=== PATIENT | female | born 1950 | race Caucasian/White ===

== ENCOUNTER → 2018-01-27 10:47 | Outpatient (CLI) | payer MEDICARE, OTHER, SELFPAY ==
--- NOTE | 2018-01-27 10:52 | MM_ITS ---
MM Dig screening mamm BI w/CAD CAD Screening ORDERING PHYSICIAN : Sima Hopkins PATIENT AGE: 67 years GENDER: Female INDICATION: 69-year-old. No hormones no new complaints Family history. Sister with breast cancer age 69 COMPARISON: Previous mammograms: [id number] and November studies TECHNIQUE: Standard CC and MLO images were obtained. R2 CAD reviewed. FINDINGS: Lower density breast with stable scattered benign-appearing calcifications. And vascular calcifications again evident RIGHT BREAST:Coarse grouping of calcifications upper-outer quadrant are most likely benign calcifications and can be followed. LEFT BREAST:. Stable appearance of the left breast. Follow-up in one year adequate. . Again the stable benign cluster of dense calcification upper quadrant left breast noted more likely benign pattern. Can be followed. IMPRESSION====== Stable bilateral mammogram. Clusters of dense benign-appearing calcification bilaterally appear stable. Can be followed safely in one year. BI-RADS Category: 2 Benign Finding(s) RECOMMENDED FOLLOW-UP: 1YR - 1 YEAR FOLLOW-UP (A letter has been sent to the patient regarding results of the study.)
== END ==
PROVIDERS: Family Provider Internal Medicine Adolescent Medicine; PCP Nurse Practitioner Family; Visit Provider Nurse Practitioner Family
DX: Z12.31 Encounter for screening mammogram for malignant neoplasm of breast (principal)
CPT/HCPCS: 77067

== ENCOUNTER 2018-03-18 17:29 | Observation (INO) ==
[2018-03-18 18:13] LABS: Basophils % 0.5 % (0.1-2.0); Eosinophils # 0.3 K/mm3 (0.0-0.4); Eosinophils % 3.7 % (0.1-12.0); Hematocrit 40.7 % (37.0-47.0); Hemoglobin 14.3 g/dL (12.2-16.2); Lymphocytes # 3.2 K/mm3 (0.7-4.5); Lymphocytes % 38.5 K/mm3 (10-50); Mean Corpuscular HGB Conc 35.1 g/dL (31.8-35.4); Mean Corpuscular Volume 91.1 fl (81-99); Mean Platelet Volume 7.4 fl (7.4-10.4); Monocytes # 0.6 K/mm3 (0.1-1.0); Monocytes % 6.7 % (1.7-9.3); Neutrophils # 4.2 K/mm3 (1.8-7.8); Neutrophils % 50.6 % (37.0-80.0); Platelet Count 324 K/mm3 (142-424); Red Blood Count 4.47 M/mm3 (4.20-5.40); Red Cell Distribution Width 13.1 % (11.5-17.5); White Blood Count 8.3 K/mm3 (4.8-10.8)
[2018-03-18 18:25] LABS: Alanine Aminotransferase 21 U/L (12-78); Albumin Level 3.8 gm/dL (3.4-5.0); Alkaline Phosphatase 67 U/L (46-116); Anion Gap 12.3 mEq/L (5-15); Aspartate Amino Transferase 15 U/L (15-37); Bilirubin,Total 0.3 mg/dL (0.2-1.0); Blood Urea Nitrogen 13 mg/dL (7-18); Calcium 9.6 mg/dL (8.5-10.1); Carbon Dioxide 29 mmol/L (21.0-32.0); Chloride 102 mmol/L (98-107); Globulin 3.7 gm/dl (1.3-3.2); Glucose 137 mg/dL (74-106); Potassium 3.3 mmoL/L (3.5-5.1); Sodium 140 mmol/L (136-145); Total Protein,Serum 7.5 gm/dL (6.4-8.2)
--- NOTE | 2018-03-18 19:05 | Emergency Department Note ---
ED Disposition Clinical Impression: Near syncope, Dehydration Hypotension Qualifiers: Hypotension type: unspecified hypotension type Qualified Code(s): I95.9 - Hypotension, unspecified Disposition: Still a Patient Condition on Discharge: Good Referrals: Sima Hopkins APRN [Primary Care Provider] - - Critical Care Critical Care Time: No Attestation: On 03/18/18, the high probability of a clinically significant, sudden or life threatening deterioration of the following system(s) required my full and direct attention, intervention and personal management. The time I documented below is in addition to time spent performing reported procedures but includes the following listed in this critical care notation. Medical Decision Making - Last Inquiry Pt receiving controlled substance: No Vital Signs: 03/18/18 17:53 Temperature 98.1 F Temperature Source Oral Pulse Rate [Right Brachial] 98 H Respiratory Rate 18 Blood Pressure [Right Arm] 74/55 Blood Pressure Mean [Right Arm] 61 Blood Pressure Source [Right Arm] Automatic Cuff Blood Pressure Position [Right Arm] Sitting 02 Sat by Pulse Oximetry 98 Oxygen Delivery Method Room Air - Lab Data Lab Results 03/18/18 17:20: WBC 8.3, RBC 4.47, Hgb 14.3, Hct 40.7, MCV 91.1, MCH 32.0 H, MCHC 35.1, RDW 13.1, Plt Count 324, MPV 7.4, Neut % (Auto) 50.6, Lymph % (Auto) 38.5, [place] % (Auto) 6.7, Eos % (Auto) 3.7, Baso % (Auto) 0.5, Neut # (Auto) 4.2 , Lymph # (Auto) 3.2, [place] # (Auto) 0.6, Eos # (Auto) 0.3, Baso # (Auto) 0.0 03/18/18 17:20: Sodium 140, Potassium 3.3 L, Chloride 102, Carbon Dioxide 29, Anion Gap 12.3, BUN 13, Creatinine 1.28 H, Estimated Creat Clear 56, Estimated GFR 42 L, Est GFR ( Amer) 50 L, Glucose 137 H, Calcium 9.6, Total Bilirubin 0.3, AST 15, ALT 21, Alkaline Phosphatase 67, Troponin I < 0.02, Total Protein 7.5, Albumin 3.8, Globulin 3.7 H, Albumin/Globulin Ratio 1.0 L Result diagrams: 03/18/18 17:20 03/18/18 17:20 Orders (Tests/Meds): ED MEDICATIONS Discontinued Medications Generic Name Dose Route Start Last Admin Trade Name Ashleigh PRN Reason Stop Dose Admin Sodium Chloride 1,000 mls @ 999 mls/hr 03/18/18 18:00 03/18/18 18:21 Sod Chlor 0.9% 1000ml Bag IV 03/18/18 19:00 999 mls/hr .Q1H1M RAEGAN Administration Lactated Ringer's 1,000 mls @ 999 mls/hr 03/18/18 18:00 03/18/18 18:21 Lactated Ringer's 1000 Ml Bag IV 03/18/18 19:00 999 mls/hr .Q1H1M RAEGAN Administration ORDERS Category Date Time Status XR chest portable Stat Exams 03/18/18 17:57 Taken Diarrhea Panel, PCR Stat Lab 03/18/18 19:14 Ordered Urinalysis (cathed specimen) Stat Lab 03/18/18 17:57 Ordered - ECG Data Tracing #1 EKG interpreted by Devin Gonzales MD: Rhythm: sinus Rate: 91 [place]: normal Ectopy: none Conduction: normal ST Segment Changes: none T Wave Changes: none Q Waves: Leads III and aVF LVH Poor R-wave progression - Physician Consults Physician Consulted: Jayy Time: 19:26 Reason -: Admission Comment/Response: Agrees to admit the patient to the hospital. We discussed the patient's clinical information, including history, exam, laboratory and radiology results and ED course. Per hospital procedure, I will write temporary bridge inpatient orders on the patient. Specific orders requested by the admitting physician: IV fluids, recheck chemistry profile in the morning Medical Decision Narrative: 7:20 PM: Hypotensive on arrival. Blood pressure now 132 systolic. Creatinine is above her baseline from 1 year ago. General Adult HPI - General Chief complaint: Syncope Stated complaint: dizzy,sugar Time Seen by Provider: 03/18/18 19:00 Mode of Arrival: Wheelchair Limitations: No Limitations Description of Symptoms (Recalled from ER Triage Doc. by RN): WEAKNESS, NEAR SYNCOPE, DIAPHORETIC, NOT EATING TODAY AND IS DIABETIC, DIARRHEA TODAY, NAUSEA - History of Present Illness HPI narrative: The patient has not felt well all day. She has had some diarrhea which she describes as mild. No blood. No vomiting. No abdominal pain. She has not eaten or drank much all day. She is diabetic. She was in her wheelchair this afternoon when she got very weak and near syncopal. She says that she almost passed out, but not quite. She says she was profoundly diaphoretic. She denies chest pain or shortness of breath. Other than the fact that she did not have any chest pain, she says she felt like she did when she had a heart attack. She says that she is improved now, but still does not feel good. Denies fever. - Related Data Home Medications Medication Instructions Recorded Confirmed Unobtainable 03/18/18 03/18/18 Allergies Allergy/AdvReac Type Severity Reaction Status Date / Time pregabalin [From Lyrica] AdvReac Mild LIPS Verified 03/18/18 18:00 SWELLED [facility] History I have reviewed the patient's past medical history: Yes - Social History Educational Level: Completed High School Smoking Status: Never smoker Tobacco Type: cigarettes Alcohol Intake: never - Psychiatric History Expresses thoughts of harming self/others: None Suicide Plan Description: No Plan ROS Obtained: Yes All systems reviewed & no additional complaints - Constitutional Constitutional: Reports excessive sweating, Denies fever(s), Reports poor appetite, Reports malaise, Reports weakness - Cardiovascular Cardiovascular: Reports as per HPI, Reports fainting (Near-syncope) - Respiratory Respiratory: No cough, No dyspnea - Gastrointestinal Gastrointestingal: Reports: diarrhea. Denies: abdominal pain, nausea, vomiting Physical Exam - General General appearance: alert, in no apparent distress - Head Head exam: atraumatic, normocephalic, normal inspection - Eye Eye exam: Present: normal appearance, PERRL, EOMI - ENT ENT exam: Present: normal exam, normal oropharynx, mucous membranes moist, TM's normal bilaterally, normal external ear exam - Neck Neck exam: Present: normal inspection, full ROM, trachea midline. Absent: meningismus, lymphadenopathy - Chest Chest inspection: Present: normal inspection, symmetric chest wall rise. Absent : tenderness - Respiratory Respiratory exam: Present: normal lung sounds bilaterally. Absent: respiratory distress - Cardiovascular Cardiovascular exam: Present: regular rate, normal rhythm. Absent: JVD - Abdominal Exam Abdominal exam: Present: soft, normal bowel sounds. Absent: distention, tenderness, guarding - Extremities Exam Extremities exam: Present: normal inspection, full ROM, normal capillary refill. Absent: calf tenderness - Neurological Exam Neurological exam: Present: alert, oriented X3 - Psychiatric Psychiatric exam: Present: normal affect, normal mood - Skin Skin exam: Present: warm, dry, intact, normal color
[2018-03-19 04:48] LABS: Anion Gap 10.3 mEq/L (5-15); Potassium 3.3 mmoL/L (3.5-5.1)
[2018-03-19 05:10] LABS: Basophils % 0.6 % (0.1-2.0); Eosinophils # 0.3 K/mm3 (0.0-0.4); Eosinophils % 3.9 % (0.1-12.0); Hematocrit 35.5 % (37.0-47.0); Lymphocytes # 2.7 K/mm3 (0.7-4.5); Lymphocytes % 42.7 K/mm3 (10-50); Mean Corpuscular HGB Conc 35.5 g/dL (31.8-35.4); Mean Corpuscular Hemoglobin 31.9 pg (27.0-31.2); Mean Corpuscular Volume 89.8 fl (81-99); Mean Platelet Volume 7.3 fl (7.4-10.4); Monocytes # 0.4 K/mm3 (0.1-1.0); Monocytes % 6.4 % (1.7-9.3); Neutrophils # 2.9 K/mm3 (1.8-7.8); Neutrophils % 46.4 % (37.0-80.0); Platelet Count 254 K/mm3 (142-424); Red Blood Count 3.96 M/mm3 (4.20-5.40); Red Cell Distribution Width 13.1 % (11.5-17.5); White Blood Count 6.3 K/mm3 (4.8-10.8)
[2018-03-19 06:23] LABS: Hemoglobin 12.7 g/dL (12.2-16.2)
--- NOTE | 2018-03-19 07:25 | Pharmacy Consult Notes ---
[facility] Pharmacy VTE Monitoring - Patient Demographics Admission date: 03/18/18 Report Date: 03/19/18 Time: 07:25 Allergies/Adverse Reactions: Patient Allergies pregabalin [From Lyrica] Adverse Reaction (Mild, Verified 03/18/18 18:00) LIPS SWELLED Height: 1.57 m Weight: 90.889 kg Patient Problems: Current Active Problems Near syncope (Acute) Hypotension (Acute) Dehydration (Acute) - VTE Risk Labs: VTE Related Lab Results Hgb 12.7 g/dL (12.2-16.2) D 03/19/18 04:20 Hct 35.5 % (37.0-47.0) L 03/19/18 04:20 Plt Count 254 K/mm3 (142-424) 03/19/18 04:20 BUN 9 mg/dL (7-18) D 03/19/18 04:20 Creatinine 0.84 mg/dL (0.55-1.02) D 03/19/18 04:20 Estimated Creat Clear 78 mL/min (0-300) 03/19/18 04:20 Was VTE Risk Assessment Performed: Yes VTE Score: 3 VTE Risk Level: Low Risk - Prophylaxis VTE Prophylaxis Ordered?: Yes Types of VTE Prophylaxis: TEDS Knee High Location of Applied Device: Bilateral Lower Extremeties - VTE Diagnosis Confirmed Treatment or plan recommended: Continue Current Treatment
--- NOTE | 2018-03-19 09:00 | H&P/Discharge Summary ---
General - General Admission date:: 03/18/18 Discharge date: 03/19/18 *Admission Date: 03/18/18 *Chief complaint: weakness *History of present illness: The patient has not felt well all day. She has had some diarrhea which she describes as mild. No blood. No vomiting. No abdominal pain. She has not eaten or drank much all day. She is diabetic. She was in her wheelchair this afternoon when she got very weak and near syncopal. She says that she almost passed out, but not quite. She says she was profoundly diaphoretic. She denies chest pain or shortness of breath. Other than the fact that she did not have any chest pain, she says she felt like she did when she had a heart attack. She says that she is improved now, but still does not feel good. Denies fever. Above per Dr. Will. [facility] History I have reviewed the patient's past medical history: Yes Medical History: Reports:: Diabetes Mellitus Type 2 Denies:: Diabetes Mellitus Type 1 Other Medical History: Reports: Arthritis Amputation: No - *Social History Educational Level: Completed High School Smoking Status: Never smoker Tobacco Type: cigarettes Alcohol Intake: never Occupational Status: disabled Housing: house Household Members: spouse - Psychiatric History Expresses thoughts of harming self/others: None Suicide Plan Description: No Plan Review of Systems - Review of Systems Review of systems:: pertinent systems reviewed and negative unless documented below - *Neurologic Reports fainting (Near-syncope), Reports weakness Exam Vital signs and Labs for Last 24 Hours: Temp Pulse Resp BP Pulse Ox 97.1 F L 85 16 157/83 98 03/19/18 05:08 03/19/18 05:08 03/19/18 05:08 03/19/18 05:08 03/19/18 05:08 Laboratory Results - last 24 hr 03/18/18 17:20: WBC 8.3, RBC 4.47, Hgb 14.3, Hct 40.7, MCV 91.1, MCH 32.0 H, MCHC 35.1, RDW 13.1, Plt Count 324, MPV 7.4, Neut % (Auto) 50.6, Lymph % (Auto) 38.5, [place] % (Auto) 6.7, Eos % (Auto) 3.7, Baso % (Auto) 0.5, Neut # (Auto) 4.2 , Lymph # (Auto) 3.2, [place] # (Auto) 0.6, Eos # (Auto) 0.3, Baso # (Auto) 0.0 03/18/18 17:20: Sodium 140, Potassium 3.3 L, Chloride 102, Carbon Dioxide 29, Anion Gap 12.3, BUN 13, Creatinine 1.28 H, Estimated Creat Clear 56, Estimated GFR 42 L, Est GFR ( Amer) 50 L, Glucose 137 H, Calcium 9.6, Total Bilirubin 0.3, AST 15, ALT 21, Alkaline Phosphatase 67, Troponin I < 0.02, Total Protein 7.5, Albumin 3.8, Globulin 3.7 H, Albumin/Globulin Ratio 1.0 L 03/18/18 21:10: Urine Color Yellow, Urine Appearance Clear, Urine pH 5.5, Ur Specific [place] <= 1.005, Urine Protein Negative, Urine Glucose (UA) Negative, Urine Ketones Negative, Urine Blood Negative, Urine Nitrate Negative, Urine Bilirubin Negative, Urine Urobilinogen 0.2, Ur Leukocyte Esterase 1+ A, Urine WBC 10-20 A, Urine Bacteria 1+ 03/18/18 22:27: Troponin I < 0.02 03/18/18 23:24: POC Glucose 249 H 03/19/18 01:30: Troponin I < 0.02 03/19/18 04:20: Troponin I < 0.02 03/19/18 04:20: WBC 6.3, RBC 3.96 L, Hgb 12.7 D, Hct 35.5 L, MCV 89.8, MCH 31.9 H, MCHC 35.5 H, RDW 13.1, Plt Count 254, MPV 7.3 L, Neut % (Auto) 46.4, Lymph % (Auto) 42.7, [place] % (Auto) 6.4, Eos % (Auto) 3.9, Baso % (Auto) 0.6, Neut # (Auto) 2.9, Lymph # (Auto) 2.7, [place] # (Auto) 0.4, Eos # (Auto) 0.3, Baso # (Auto) 0.0 03/19/18 04:20: Sodium 142, Potassium 3.3 L, Chloride 106, Carbon Dioxide 29, Anion Gap 10.3, BUN 9 D, Creatinine 0.84 D, Estimated Creat Clear 78, Estimated GFR 68, Est GFR ( Amer) 82 D, Glucose 167 H D 03/19/18 06:17: POC Glucose 153 H I & O for Last 24 hours: Intake & Output 03/16/18 03/17/18 03/18/18 03/19/18 11:59 11:59 11:59 11:59 Intake Total 717 / 717 Output Total 500 / 500 Balance 217 / 217 Weight 200 lb 6 oz Microbiology Reports for the Last 24 Hours: Microbiology 03/18/18 21:10 Urine,Catheterized Urine Culture - Preliminary Narrative: ALert and oriented x3. Rate and rhythm regular. No murmur. No LE edema. Mucous membranes moist. Skin pink, warm and dry. Abdomen soft and nontender. Neuro exam unremarkable Hospital Course Hospital Course: Patient was admitted to acute care for IV hydration. She has not had any further episodes of diarrhea. She is tolerating oral intake well without diarrhea, nausea or abdominal pain. She feels significantly better and is ready to go home. Discharge home. FU with Jefe Hopkins APRN in one week. Results Labs on day of discharge: Labs from last 24 hours 03/19/18 03/19/18 03/19/18 06:17 04:20 04:20 WBC 6.3 RBC 3.96 L Hgb 12.7 D Hct 35.5 L MCV 89.8 MCH 31.9 H MCHC 35.5 H RDW 13.1 Plt Count 254 MPV 7.3 L Neut % (Auto) 46.4 Lymph % (Auto) 42.7 [place] % (Auto) 6.4 Eos % (Auto) 3.9 Baso % (Auto) 0.6 Neut # (Auto) 2.9 Lymph # (Auto) 2.7 [place] # (Auto) 0.4 Eos # (Auto) 0.3 Baso # (Auto) 0.0 Sodium 142 Potassium 3.3 L Chloride 106 Carbon Dioxide 29 Anion Gap 10.3 BUN 9 D Creatinine 0.84 D Estimated Creat Clear 78 Estimated GFR 68 Est GFR ( Amer) 82 D Glucose 167 H D POC Glucose 153 H Calcium Total Bilirubin AST ALT Alkaline Phosphatase Troponin I Total Protein Albumin Globulin Albumin/Globulin Ratio Urine Color Urine Appearance Urine pH Ur Specific [place] Urine Protein Urine Glucose (UA) Urine Ketones Urine Blood Urine Nitrate Urine Bilirubin Urine Urobilinogen Ur Leukocyte Esterase Urine WBC Urine Bacteria 03/19/18 03/19/18 03/18/18 04:20 01:30 23:24 WBC RBC Hgb Hct MCV MCH MCHC RDW Plt Count MPV Neut % (Auto) Lymph % (Auto) [place] % (Auto) Eos % (Auto) Baso % (Auto) Neut # (Auto) Lymph # (Auto) [place] # (Auto) Eos # (Auto) Baso # (Auto) Sodium Potassium Chloride Carbon Dioxide Anion Gap BUN Creatinine Estimated Creat Clear Estimated GFR Est GFR ( Amer) Glucose POC Glucose 249 H Calcium Total Bilirubin AST ALT Alkaline Phosphatase Troponin I < 0.02 < 0.02 Total Protein Albumin Globulin Albumin/Globulin Ratio Urine Color Urine Appearance Urine pH Ur Specific [place] Urine Protein Urine Glucose (UA) Urine Ketones Urine Blood Urine Nitrate Urine Bilirubin Urine Urobilinogen Ur Leukocyte Esterase Urine WBC Urine Bacteria 03/18/18 03/18/18 03/18/18 22:27 21:10 17:20 WBC RBC Hgb Hct MCV MCH MCHC RDW Plt Count MPV Neut % (Auto) Lymph % (Auto) [place] % (Auto) Eos % (Auto) Baso % (Auto) Neut # (Auto) Lymph # (Auto) [place] # (Auto) Eos # (Auto) Baso # (Auto) Sodium 140 Potassium 3.3 L Chloride 102 Carbon Dioxide 29 Anion Gap 12.3 BUN 13 Creatinine 1.28 H Estimated Creat Clear 56 Estimated GFR 42 L Est GFR ( Amer) 50 L Glucose 137 H POC Glucose Calcium 9.6 Total Bilirubin 0.3 AST 15 ALT 21 Alkaline Phosphatase 67 Troponin I < 0.02 < 0.02 Total Protein 7.5 Albumin 3.8 Globulin 3.7 H Albumin/Globulin Ratio 1.0 L Urine Color Yellow Urine Appearance Clear Urine pH 5.5 Ur Specific [place] <= 1.005 Urine Protein Negative Urine Glucose (UA) Negative Urine Ketones Negative Urine Blood Negative Urine Nitrate Negative Urine Bilirubin Negative Urine Urobilinogen 0.2 Ur Leukocyte Esterase 1+ A Urine WBC 10-20 A Urine Bacteria 1+ 03/18/18 17:20 WBC 8.3 RBC 4.47 Hgb 14.3 Hct 40.7 MCV 91.1 MCH 32.0 H MCHC 35.1 RDW 13.1 Plt Count 324 MPV 7.4 Neut % (Auto) 50.6 Lymph % (Auto) 38.5 [place] % (Auto) 6.7 Eos % (Auto) 3.7 Baso % (Auto) 0.5 Neut # (Auto) 4.2 Lymph # (Auto) 3.2 Andrews # (Auto) 0.6 Eos # (Auto) 0.3 Baso # (Auto) 0.0 Sodium Potassium Chloride Carbon Dioxide Anion Gap BUN Creatinine Estimated Creat Clear Estimated GFR Est GFR ( Amer) Glucose POC Glucose Calcium Total Bilirubin AST ALT Alkaline Phosphatase Troponin I Total Protein Albumin Globulin Albumin/Globulin Ratio Urine Color Urine Appearance Urine pH Ur Specific [place] Urine Protein Urine Glucose (UA) Urine Ketones Urine Blood Urine Nitrate Urine Bilirubin Urine Urobilinogen Ur Leukocyte Esterase Urine WBC Urine Bacteria Preliminary micro results at discharge 03/18/18 21:10 Urine Culture - Preliminary Urine,Catheterized Discharge Medications Discharge Medications: Home Medications Medication Instructions Recorded Confirmed Type Aspirin [Aspirin 81mg EC Tab] 81 mg PO DAILY 03/19/18 03/19/18 History Cyanocobalamin (Vitamin B-12) 1,000 mcg IM MONTHLY 03/19/18 03/19/18 History [Cyanocobalamin 1,000mcg/mL Vial] Ergocalciferol (Vitamin D2) 50,000 unit PO DIRECTED 03/19/18 03/19/18 History [Vitamin D2] Gabapentin [Gabapentin 300mg Cap] 300 mg PO BID 03/19/18 03/19/18 History Insulin Aspart [Novolog Flexpen] 20 unit SQ TID 03/19/18 03/19/18 History Insulin Detemir [Levemir 48 unit SQ HS 03/19/18 03/19/18 History 100units/mL 3mL flexpen] Loratadine [Claritin 10mg Tablet] 10 mg PO DAILY 03/19/18 03/19/18 History Memantine HCl [Namenda Xr] 28 mg PO DAILY 03/19/18 03/19/18 History Metformin HCl 1,000 mg PO BID 03/19/18 03/19/18 History Nitroglycerin [Nitroglycerin 1 - 2 sprays PO Q5MINP PRN 03/19/18 03/19/18 History 0.4mg/Dose [place] 4.9gm] Omeprazole [Omeprazole 20mg 20 mg PO BID 03/19/18 03/19/18 History Capsule] Polyethylene Glycol 3350 [Miralax 17 gm PO DAILYP PRN 03/19/18 03/19/18 History Powder] Rosuvastatin Calcium [Crestor] 10 mg PO HS 03/19/18 03/19/18 History Venlafaxine HCl [Effexor 37.5mg 37.5 mg PO BID 03/19/18 03/19/18 History tablet] Disposition Disposition: Home, Self-Care
[2018-03-19 09:04] VITALS: BP 141/63
== END 2018-03-19 10:15 | disposition home or self-care (01) ==
LOC: ER 17:29 → 2ND 17:29
PROVIDERS: ADMIT Internal Medicine Adolescent Medicine; ATTEND Internal Medicine Adolescent Medicine

== ENCOUNTER → 2018-03-26 10:55 | Outpatient (CLI) | payer MEDICARE, OTHER, SELFPAY ==
--- NOTE | 2018-03-26 11:10 | XR_ITS ---
XR shoulder LT min 2V HISTORY: ITS.REASON: LEFT SHOULDER PAIN DUE TO TRAUMA ORDERING PHYSICIAN: Sima Hopkins PATIENT AGE: 67 years Comparison: None FINDINGS: There is deformity of the left humeral neck. This has more of the appearance of an old fracture. An old chest x-ray of 05/15/2008 showed an old left humeral neck fracture. Cannot exclude a possibility of some minimal acute impaction. There is no evidence of dislocation. Osteoarthritic changes are present at the acromioclavicular joint with subacromial stenosis. IMPRESSION: 1. Old left humeral neck fracture. Cannot exclude the possibility of some minimal impaction. CT may be of further value if clinically warranted. 2. 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
[2018-03-26 12:07] LABS: Anion Gap 17.4 mEq/L (5-15); Blood Urea Nitrogen 17 mg/dL (7-18); Carbon Dioxide 25 mmol/L (21.0-32.0); Chloride 102 mmol/L (98-107); Creatinine,Serum 0.95 mg/dL (0.55-1.02); Estimated Glomerular Filt Rate 59 ml/min (>60); GFR (African American) 71 ML/MIN (>60); Glucose 296 mg/dL (74-106); Magnesium 1.2 mg/dL (1.4-2.2); Potassium 4.4 mmoL/L (3.5-5.1); Sodium 140 mmol/L (136-145)
[2018-03-26 13:20] LABS: Thyroid Stimulating Hormone 1.45 uIU/ml (0.358-3.740)
[2018-03-26 13:29] LABS: Hemoglobin A1C 9.4 % (0.0-7.0)
== END ==
PROVIDERS: Visit Provider Nurse Practitioner Family
DX: E11.319 Type 2 diabetes mellitus with unspecified diabetic retinopathy without macular edema (principal); E87.6 Hypokalemia; M25.512 Pain in left shoulder
CPT/HCPCS: 36415; 73030; 80048; 83036; 83735; 84443

== ENCOUNTER → 2018-04-01 10:14 | Outpatient (CLI) | payer MEDICARE, OTHER, SELFPAY ==
--- NOTE | 2018-04-01 10:16 | CT_ITS ---
CT shoulder LT wo con HISTORY: Posttraumatic pain ITS.REASON: ACUTE PAIN OF LT SHOULDER ORDERING PHYSICIAN: Luis Hope MD PATIENT AGE: 67 years Comparison: 03/26/2018 FINDINGS: There is an old fracture of the left humeral neck. There is some deformity of the humeral head and neck from the old injury. No acute fracture or dislocation is evident. There is some mild bony hypertrophic changes at the humeral head and neck. Osteoarthritic changes are present at the glenohumeral joint and acromioclavicular joint. There is subacromial stenosis. Suspect a tear of the supraspinatus tendon. IMPRESSION: 1. Old left humeral neck fracture with posttraumatic deformity and hypertrophy. No acute fracture evident. 2. Acromioclavicular and glenohumeral arthropathy with subacromial stenosis and suspected tear of the supraspinatus tendon
== END ==
PROVIDERS: Family Provider Internal Medicine Adolescent Medicine; PCP Nurse Practitioner Family; Visit Provider Internal Medicine Adolescent Medicine
DX: M25.512 Pain in left shoulder (principal)
CPT/HCPCS: 73200

== ENCOUNTER → 2018-12-01 09:28 | Outpatient (CLI) | payer MEDICARE, OTHER, SELFPAY ==
[2018-12-01 18:38] LABS: Alanine Aminotransferase 20 U/L (12-78); Albumin Level 3.3 gm/dL (3.4-5.0); Alkaline Phosphatase 61 U/L (46-116); Anion Gap 13.1 mEq/L (5-15); Aspartate Amino Transferase 14 U/L (15-37); Bilirubin,Total 0.2 mg/dL (0.2-1.0); Blood Urea Nitrogen 13 mg/dL (7-18); Calcium 9.2 mg/dL (8.5-10.1); Carbon Dioxide 30 mmol/L (21.0-32.0); Chloride 104 mmol/L (98-107); Cholesterol 219 mg/dL (140-200); Creatinine,Serum 0.97 mg/dL (0.55-1.02); Estimated Glomerular Filt Rate 57 ml/min (>60); GFR (African American) 69 ML/MIN (>60); Globulin 3.2 gm/dl (1.3-3.2); Glucose 98 mg/dL (74-106); HDL Cholesterol 55 mg/dL (29-89); LDL Cholesterol 131 mg/dL (0-130); Potassium 4.1 mmoL/L (3.5-5.1); Sodium 143 mmol/L (136-145); Total Protein,Serum 6.5 gm/dL (6.4-8.2); Triglycerides 166 mg/dL (30-200); VLDL Cholesterol 33 mg/dL (0-40)
== END ==
PROVIDERS: Visit Provider Internal Medicine Endocrinology, Diabetes & Metabolism
DX: E11.65 Type 2 diabetes mellitus with hyperglycemia (principal); E11.39 Type 2 diabetes mellitus with other diabetic ophthalmic complication; E34.9 Endocrine disorder, unspecified; I10 Essential (primary) hypertension; Z79.4 Long term (current) use of insulin
CPT/HCPCS: 36415; 80053; 80061; 84443

== ENCOUNTER → 2019-04-06 08:21 | Outpatient (POV) | payer MEDICARE, OTHER, SELFPAY | PROVIDERS: Visit Provider Dermatology | DX: Z00.00 Encounter for general adult medical examination without abnormal findings (principal) ==

== ENCOUNTER → 2019-07-06 09:01 | Outpatient (CLI) | payer MEDICARE, SELFPAY ==
[2019-07-06 10:36] LABS: Alanine Aminotransferase 30 U/L (12-78); Albumin Level 3.5 gm/dL (3.4-5.0); Alkaline Phosphatase 66 U/L (46-116); Anion Gap 14.3 mEq/L (5-15); Aspartate Amino Transferase 18 U/L (15-37); Bilirubin,Total 0.3 mg/dL (0.2-1.0); Blood Urea Nitrogen 12 mg/dL (7-18); Calcium 9.6 mg/dL (8.5-10.1); Carbon Dioxide 28 mmol/L (21.0-32.0); Chloride 103 mmol/L (98-107); Chol/HDL Ratio 3.9 (1-3.5); Cholesterol 208 mg/dL (140-200); Creatinine,Serum 1.04 mg/dL (0.55-1.02); Estimated Glomerular Filt Rate 53 ml/min (>60); GFR (African American) 64 ML/MIN (>60); Globulin 3.5 gm/dl (1.3-3.2); Glucose 125 mg/dL (74-106); HDL Cholesterol 54 mg/dL (29-89); LDL Cholesterol 116 mg/dL (0-130); Potassium 4.3 mmoL/L (3.5-5.1); Sodium 141 mmol/L (136-145); Triglycerides 191 mg/dL (30-200); VLDL Cholesterol 38 mg/dL (0-40)
[2019-07-11 04:17] LABS: Vitamin B12 453 pg/mL (232-1245)
== END ==
PROVIDERS: Internal Medicine Adolescent Medicine; Visit Provider Internal Medicine Endocrinology, Diabetes & Metabolism
DX: E11.65 Type 2 diabetes mellitus with hyperglycemia (principal); E78.5 Hyperlipidemia, unspecified; R53.81 Other malaise; Z79.84 Long term (current) use of oral hypoglycemic drugs
CPT/HCPCS: 36415; 80053; 80061; 82607

== ENCOUNTER → 2019-08-12 10:21 | Outpatient (CLI) | payer MEDICARE, SELFPAY ==
--- NOTE | 2019-08-12 10:24 | MM_ITS ---
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 R2 CAD reviewed. FINDINGS: Right breast: No new findings of significant concern. Vascular calcifications. 2 stable cluster of dense benign appearing calcifications lateral breast unchanged reflecting vascular calcifications or possibly small degenerating fibroadenoma the can be followed safely. Mild asymmetric areas of density the right breast appear stable since 2008 Left breast: No new areas of concern. Small clusters of dense benign-appearing calcifications unchanged with no significant change since 2016 IMPRESSION: Stable bilateral mammogram: No significant new findings Bilateral follow-up 1 year BI-RAD Category: 2 Benign Finding(s) FOLLOW-UP: 1YR 1 Year Follow-up (A letter has been sent to the patient regarding results of the study.) Dictated by: Tho Gama MD 08/12/2019 11:42 Electronically signed by Tho Gama MD in [place] 08/12/2019 11:42
--- NOTE | 2019-08-12 10:24 | XR_ITS ---
PROCEDURE: XR DEXA AXIAL SKELETON CLINICAL HISTORY: OSTEOPOROSIS. COMPARISON: No exams were available for comparison FINDINGS: Left femoral neck density is 0.754 grams/centimeters sq with a T-score of -2. L-spine density was not accurate due to prior surgery IMPRESSION: Osteopenia with moderate fracture risk. Treatment advised. Suggest follow-up exam July 2021. Dictated by: Kennedy Duron MD 08/12/2019 11:52 Electronically signed by Kennedy Duron MD in [place] 08/12/2019 11:52
== END ==
PROVIDERS: Referring Provider Nurse Practitioner Family; Visit Provider Nurse Practitioner Family
DX: Z12.31 Encounter for screening mammogram for malignant neoplasm of breast (principal); M81.0 Age-related osteoporosis without current pathological fracture
CPT/HCPCS: 77067; 77080

== ENCOUNTER 2019-10-11 12:30 | Outpatient (CLI) | payer MEDICARE, SELFPAY ==
[2019-10-11 13:24] VITALS: BMI 35.9
[2019-10-11 13:31] LABS: Albumin Level 3.3 gm/dL (3.4-5.0); Calcium 8.8 mg/dL (8.5-10.1); Creatinine Clearance Estimated 65 mL/min (50-200); Creatinine,Serum 1.11 mg/dL (0.55-1.02); Estimated Glomerular Filt Rate 49 ml/min (>60); GFR (African American) 59 ML/MIN (>60)
[2019-10-11 14:09] VITALS: BP 148/76; PULSE 97; RESP 18
[2019-10-11 14:32] VITALS: BP 141/76; PULSE 95; RESP 18
== END 2019-10-11 14:32 | disposition home or self-care (01) ==
LOC: INF 13:53
PROVIDERS: Visit Provider Internal Medicine Adolescent Medicine
DX: M85.89 Other specified disorders of bone density and structure, multiple sites (principal)
CPT/HCPCS: 82040; 82310; 82565; 96374; J3489

== ENCOUNTER → 2019-12-06 13:00 | Outpatient (CLI) | payer MEDICARE, SELFPAY | PROVIDERS: PCP Internal Medicine Adolescent Medicine; Visit Provider Nurse Practitioner Family | DX: G47.33 Obstructive sleep apnea (adult) (pediatric) (principal); R40.0 Somnolence; E66.9 Obesity, unspecified; R41.840 Attention and concentration deficit | CPT/HCPCS: G0399 ==

== ENCOUNTER → 2020-05-29 09:13 | Outpatient (CLI) | payer MEDICARE, SELFPAY ==
[2020-05-29 09:47] LABS: Basophils # 0.1 K/mm3 (0-0.2); Basophils % 0.8 % (0.1-2.0); Eosinophils # 0.4 K/mm3 (0.0-0.4); Eosinophils % 5.2 % (0.1-12.0); Hematocrit 41.9 % (37.0-47.0); Hemoglobin 14.2 g/dL (12.2-16.2); Lymphocytes # 2.5 K/mm3 (0.7-4.5); Lymphocytes % 31.4 % (10-50); Mean Corpuscular HGB Conc 33.8 g/dL (31.8-35.4); Mean Corpuscular Hemoglobin 32.5 pg (27.0-31.2); Mean Platelet Volume 7.3 fl (7.4-10.4); Monocytes # 0.4 K/mm3 (0.1-1.0); Monocytes % 5.5 % (1.7-9.3); Neutrophils # 4.4 K/mm3 (1.8-7.8); Platelet Count 269 K/mm3 (142-424); Red Blood Count 4.36 M/mm3 (4.20-5.40); Red Cell Distribution Width 13.4 % (11.5-17.5); White Blood Count 7.8 K/mm3 (4.8-10.8)
[2020-05-29 10:29] LABS: Chloride 101 mmol/L (98-107); Potassium 3.5 mmoL/L (3.5-5.1); Sodium 141 mmol/L (136-145)
[2020-05-29 10:31] LABS: Alanine Aminotransferase 16 U/L (12-78); Aspartate Amino Transferase 23 U/L (14-36); Blood Urea Nitrogen 12 mg/dl (7-17); Estimated Glomerular Filt Rate 55 ml/min (>60); GFR (African American) 66 ML/MIN (>60)
[2020-05-29 10:32] LABS: Albumin Level 4.1 g/dl (3.5-5.0); Albumin/Globulin Ratio 1.5 (1.1-1.8); Alkaline Phosphatase 53 U/L (38-126); Anion Gap 16.5 mEq/L (5-15); Bilirubin,Total 0.4 mg/dl (0.2-1.3); Calcium 9.8 mg/dl (8.4-10.2); Carbon Dioxide 27 mmol/L (22.0-30.0); Cholesterol 116 mg/dl (140-200); Globulin 2.7 g/dL (1.3-3.2); Glucose 107 mg/dl (74-100); Total Protein,Serum 6.8 g/dl (6.3-8.2); Triglycerides 167 mg/dl (30-150); VLDL Cholesterol 33 mg/dL (0-40)
[2020-05-29 10:33] LABS: Chol/HDL Ratio 1.8 (1-3.5); HDL Cholesterol 66 mg/dl (40-60)
[2020-05-29 12:37] LABS: 25-OH Vitamin D, Total 34.6 ng/mL (30-100)
[2020-05-29 13:06] LABS: Hemoglobin A1C 9.5 % (4.0-6.0)
[2020-05-30 09:18] LABS: Vitamin B12 318 pg/mL (232-1245)
[2020-05-30 14:10] LABS: Creatinine,Urine Random 61 mg/dL (Not Estab.); Microalbumin/Creatinine Ratio 46.5
== END ==
PROVIDERS: Visit Provider Nurse Practitioner Family
DX: E11.39 Type 2 diabetes mellitus with other diabetic ophthalmic complication (principal); I10 Essential (primary) hypertension; E53.8 Deficiency of other specified B group vitamins; E55.9 Vitamin D deficiency, unspecified; M85.80 Other specified disorders of bone density and structure, unspecified site; Z79.4 Long term (current) use of insulin
CPT/HCPCS: 36415; 80053; 80061; 82043; 82306; 82570; 82607; 83036; 85025

== ENCOUNTER → 2021-04-05 15:16 | Outpatient (CLI) | payer MEDICARE, SELFPAY ==
[2021-04-05 16:11] LABS: Basophils % 0.5 % (0.1-2.0); Eosinophils # 0.2 K/mm3 (0.0-0.4); Eosinophils % 2.2 % (0.1-12.0); Hematocrit 39.1 % (37.0-47.0); Hemoglobin 12.7 g/dL (12.2-16.2); Lymphocytes # 2.2 K/mm3 (0.7-4.5); Lymphocytes % 28.6 % (10-50); Mean Corpuscular HGB Conc 32.5 g/dL (31.8-35.4); Mean Corpuscular Hemoglobin 30.6 pg (27.0-31.2); Mean Corpuscular Volume 94.1 fl (81-99); Mean Platelet Volume 6.8 fl (7.4-10.4); Monocytes # 0.4 K/mm3 (0.1-1.0); Monocytes % 5.8 % (1.7-9.3); Neutrophils # 4.8 K/mm3 (1.8-7.8); Neutrophils % 62.8 % (37.0-80.0); Platelet Count 300 K/mm3 (142-424); Red Blood Count 4.16 M/mm3 (4.20-5.40); Red Cell Distribution Width 12.9 % (11.5-17.5); White Blood Count 7.6 K/mm3 (4.8-10.8)
[2021-04-05 17:11] LABS: Hemoglobin A1C 9.2 % (4.0-6.0)
[2021-04-05 17:19] LABS: Alanine Aminotransferase 15 U/L (12-78); Albumin Level 3.9 g/dl (3.5-5.0); Albumin/Globulin Ratio 1.6 (1.1-1.8); Alkaline Phosphatase 65 U/L (38-126); Anion Gap 13.8 mEq/L (5-15); Aspartate Amino Transferase 19 U/L (14-36); Bilirubin,Total 0.4 mg/dl (0.2-1.3); Blood Urea Nitrogen 11 mg/dl (7-17); Calcium 9.1 mg/dl (8.4-10.2); Carbon Dioxide 29 mmol/L (22.0-30.0); Chloride 95 mmol/L (98-107); Estimated Glomerular Filt Rate 71 ml/min (>60); GFR (African American) 86 ML/MIN (>60); Globulin 2.5 g/dL (1.3-3.2); Glucose 357 mg/dl (74-100); Potassium 4.8 mmoL/L (3.5-5.1); Sodium 133 mmol/L (136-145); Total Protein,Serum 6.4 g/dl (6.3-8.2)
[2021-04-05 17:50] LABS: Thyroid Stimulating Hormone 0.89 uIU/mL (0.465-4.68)
[2021-04-05 18:09] LABS: Vitamin B12 295 pg/mL (239-931)
== END ==
PROVIDERS: Visit Provider Nurse Practitioner Family
DX: R35.0 Frequency of micturition (principal); Z79.899 Other long term (current) drug therapy; E11.9 Type 2 diabetes mellitus without complications; Z79.4 Long term (current) use of insulin
CPT/HCPCS: 36415; 80053; 82607; 83036; 84443; 85025; 87086

== ENCOUNTER → 2021-07-26 16:16 | Outpatient (CLI) | payer MEDICARE, SELFPAY ==
[2021-07-26 16:57] LABS: Hemoglobin A1C 10.3 % (4.0-6.0)
[2021-07-26 17:28] LABS: Anion Gap 15.3 mEq/L (5-15); Blood Urea Nitrogen 13 mg/dl (7-17); Calcium 9.9 mg/dl (8.4-10.2); Carbon Dioxide 26 mmol/L (22.0-30.0); Chloride 104 mmol/L (98-107); Estimated Glomerular Filt Rate 62 ml/min (>60); GFR (African American) 75 ML/MIN (>60); Glucose 82 mg/dl (74-100); Potassium 4.3 mmoL/L (3.5-5.1); Sodium 141 mmol/L (136-145)
== END ==
PROVIDERS: Visit Provider Nurse Practitioner Family
DX: E11.319 Type 2 diabetes mellitus with unspecified diabetic retinopathy without macular edema (principal); Z79.4 Long term (current) use of insulin
CPT/HCPCS: 36415; 80048; 83036

== ENCOUNTER → 2021-10-09 18:24 | Outpatient (CLI) | payer MEDICARE, SELFPAY | PROVIDERS: Visit Provider Internal Medicine Adolescent Medicine | DX: R35.0 Frequency of micturition (principal); B96.1 Klebsiella pneumoniae [K. pneumoniae] as the cause of diseases classified elsewhere | CPT/HCPCS: 87086; 87088; 87186 ==

== ENCOUNTER 2021-12-29 23:38 | Observation (INO) | payer MEDICARE, SELFPAY ==
[2021-12-29 23:18] VITALS: BP 118/67; PULSE 75; RESP 18; TEMP 36.9; O2SAT 94; BMI 31.8
[2021-12-29 23:57] LABS: Basophils # 0.3 K/mm3 (0-0.2); Basophils % 1.6 % (0.1-2.0); Eosinophils # 0.4 K/mm3 (0.0-0.4); Eosinophils % 2.3 % (0.1-12.0); Hematocrit 43.7 % (37.0-47.0); Hemoglobin 13.8 g/dL (12.2-16.2); Lymphocytes # 2.5 K/mm3 (0.7-4.5); Lymphocytes % 15.2 % (10-50); Mean Corpuscular HGB Conc 31.5 g/dL (31.8-35.4); Mean Corpuscular Hemoglobin 31.6 pg (27.0-31.2); Mean Corpuscular Volume 100.3 fl (81-99); Mean Platelet Volume 7.8 fl (7.4-10.4); Monocytes # 0.9 K/mm3 (0.1-1.0); Monocytes % 5.7 % (1.7-9.3); Neutrophils # 12.2 K/mm3 (1.8-7.8); Neutrophils % 75.1 % (37.0-80.0); Platelet Count 354 K/mm3 (142-424); Red Blood Count 4.36 M/mm3 (4.20-5.40); Red Cell Distribution Width 13.5 % (11.5-17.5); White Blood Count 16.2 K/mm3 (4.8-10.8)
[2021-12-29 23:59] LABS: MANUAL DIFFERENTIAL MANUAL DIFFERENTIAL (MANUAL DIFF)
[2021-12-30] VITALS (10 sets, daily range): BP systolic 121–157; BP diastolic 56–105; PULSE 72–88; RESP 14–20; TEMP 36.7–37; O2SAT 94–100; BMI 32.4
[2021-12-30 00:03] LABS: Alanine Aminotransferase 22 U/L (12-78); Albumin Level 4.5 g/dl (3.5-5.0); Albumin/Globulin Ratio 1.5 (1.1-1.8); Alkaline Phosphatase 75 U/L (38-126); Anion Gap 12.9 mEq/L (5-15); Aspartate Amino Transferase 29 U/L (14-36); Bilirubin,Total 0.4 mg/dl (0.2-1.3); Blood Urea Nitrogen 20 mg/dl (7-17); Calcium 9.8 mg/dl (8.4-10.2); Carbon Dioxide 32 mmol/L (22.0-30.0); Chloride 98 mmol/L (98-107); Creatinine Clearance Estimated 51 mL/min (50-200); Estimated Glomerular Filt Rate 40 ml/min (>60); GFR (African American) 49 ML/MIN (>60); Globulin 3.1 g/dL (1.3-3.2); Glucose 115 mg/dl (74-100); Potassium 3.9 mmoL/L (3.5-5.1); Sodium 139 mmol/L (136-145); Total Protein,Serum 7.6 g/dl (6.3-8.2)
[2021-12-30 00:06] LABS: Hypochromasia 1+; Lymphocytes % 13 % (10-50); Macrocytosis 1+; Monocytes % 2 % (2-9); Neutrophils % 79 % (42-76); Platelet Estimate Normal; Total Cells Counted 100
--- NOTE | 2021-12-30 00:08 | HMH.EDGENADL ---
ED Disposition Clinical Impression: Hypoglycemia, Obesity (BMI 30-39.9), SEB (acute kidney injury) UTI (urinary tract infection) Qualifiers: Urinary tract infection type: site unspecified Hematuria presence: without hematuria Qualified Code(s): N39.0 - Urinary tract infection, site not specified Diabetes mellitus Qualifiers: Diabetes mellitus type: type 2 Diabetes mellitus residential insulin use: with salvage determiner use Diabetes mellitus complication status: with other specified complication Qualified Code(s): E11.69 - Type 2 diabetes mellitus with other specified complication; Z79.4 - MCFP (current) use of insulin Disposition: Admitted As Inpatient Condition on Discharge: Good - Critical Care Critical Care Time: No Attestation: On 12/29/21, the high probability of a clinically significant, sudden or life threatening deterioration of the following system(s) required my full and direct attention, intervention and personal management. The time I documented below is in addition to time spent performing reported procedures but includes the following listed in this critical care notation. Medical Decision Making - Medical Records Medical records reviewed: Yes: I reviewed the patient's medical records. - Last Inquiry Pt receiving controlled substance: No Vital Signs: 12/29/21 23:18 12/30/21 00:00 12/30/21 00:31 Temperature 98.4 F Temperature Source Oral Pulse Rate 74 72 Pulse Rate [Right] 75 Respiratory Rate 18 Blood Pressure 121/68 134/68 Blood Pressure [Right Arm] 118/67 Blood Pressure Mean 84 86 Blood Pressure Mean [Right Arm] 84 02 Sat by Pulse Oximetry 94 L 95 99 12/30/21 01:00 Temperature Temperature Source Pulse Rate 78 Pulse Rate [Right] Respiratory Rate Blood Pressure 126/56 L Blood Pressure [Right Arm] Blood Pressure Mean 79 Blood Pressure Mean [Right Arm] 02 Sat by Pulse Oximetry 98 - Lab Data Lab results reviewed: Yes: I reviewed the patient's lab results. Lab Results 12/29/21 23:45: WBC 16.2 H, RBC 4.36, Hgb 13.8, Hct 43.7, MCV 100.3 H, MCH 31.6 H, MCHC 31.5 L, RDW 13.5, Plt Count 354, MPV 7.8, Neut % (Auto) 75.1, Lymph % (Auto) 15.2, [place] % (Auto) 5.7, Eos % (Auto) 2.3, Baso % (Auto) 1.6, Neut # (Auto) 12.2 H, Lymph # (Auto) 2.5, [place] # (Auto) 0.9, Eos # (Auto) 0.4, Baso # (Auto) 0.3 H, Total Counted 100, Neutrophils % (Manual) 79 H, Band Neutrophils % 6.0, Lymphocytes % (Manual) 13, Monocytes % (Manual) 2, Platelet Estimate Normal, Hypochromasia 1+, Macrocytosis 1+, ESR 31 H 12/29/21 23:45: Sodium 139, Potassium 3.9, Chloride 98, Carbon Dioxide 32 H, Anion Gap 12.9, BUN 20 H, Creatinine 1.30 H, Estimated Creat Clear 51, Estimated GFR 40 L, Est GFR ( Amer) 49 L, Glucose 115 H, Calcium 9.8, Total Bilirubin 0.4, AST 29, ALT 22, Alkaline Phosphatase 75, C-Reactive Protein 5.7 H, Total Protein 7.6, Albumin 4.5, Globulin 3.1, Albumin/Globulin Ratio 1.5, Procalcitonin 0.130 12/30/21 00:09: Urine Color Yellow, Urine Appearance Cloudy, Urine pH 5.5, Ur Specific [place] 1.025, Urine Protein Negative, Urine Glucose (UA) 3+, Urine Ketones Negative, Urine Blood Negative, Urine Nitrate Positive, Urine Bilirubin Negative, Urine Urobilinogen 0.2, Ur Leukocyte Esterase 1+ A, Urine WBC 10-20, Amorphous Sediment 2+, Urine Bacteria 2+ 12/30/21 00:15: SARS-CoV-2 (PCR) Not detected, Influenza A Untype (PCR) Not detected, Influenza Type B (PCR) Not detected 12/30/21 00:25: Lactate 2.4 H Result diagrams: 12/29/21 23:45 12/29/21 23:45 Orders (Tests/Meds): ED MEDICATIONS Generic Name Dose Route Start Last Admin Trade Name Freq PRN Reason Stop Dose Admin Sodium Chloride 1,000 mls @ 999 mls/hr 12/29/21 23:45 12/29/21 23:48 Sod Chlor 0.9% 1000ml Bag IV 12/30/21 00:45 999 mls/hr .Q1H1M RAEGAN Administration Ceftriaxone Sodium 1 gm/ 50 mls @ 100 mls/hr 12/30/21 00:45 12/30/21 00:37 Sodium Chloride IV 01/13/22 00:44 100 mls/hr Q24H RAEGAN Administration Discontinu
[2021-12-30 00:09] LABS: C-Reactive Protein 5.7 mg/L (0-4)
[2021-12-30 00:13] LABS: Microscopic, Urine URINE MICROSCOPIC (MICROSCOPIC)
[2021-12-30 00:16] LABS: Appearance,Urine CLOUDY (Clear); Bilirubin,Urine Negative (Negative); Blood, Urine Negative (Negative); Color,Urine YELLOW (Yellow); Glucose,Urine (UA) 3+ (Negative); Ketones,Urine Negative (Negative); Leukocyte Esterase,Urine 1+ (Negative); Nitrate,Urine POSITIVE (Negative); PH,Urine 5.5 (5.0-8.5); Protein,Urine Negative (Negative); Specific Gravity, Urine 1.025 (1.005-1.030); Urobilinogen,Urine 0.2 EU/dl (0.2)
[2021-12-30 00:18] LABS: Coronavirus 19, PCR Not Detected (NotDetected); Influenza A, PCR Not Detected (NotDetected); Influenza B, PCR Not Detected (NotDetected)
[2021-12-30 00:22] LABS: Erythrocyte Sedimentation Rate 31 mm/hr (0-30)
[2021-12-30 00:26] LABS: Amorphous Sediment,Urine 2+ /lpf; Bacteria,Urine 2+ /lpf
[2021-12-30 00:44] LABS: Lactic Acid 2.4 mmol/L (0.7-2.1)
--- NOTE | 2021-12-30 02:11 | PC.NURSE ---
patient up to floor via stretcher @ this time.
[2021-12-30 02:27] LABS: POC Glucose,Bedside 140 (70-110)
[2021-12-30 04:32] LABS: Reflex Lactic Add Lactic Reflex
[2021-12-30 05:26] LABS: Lactic Acid Follow Up (RFLX 1) 1.2 mmol/L (0.7-2.1)
[2021-12-30 05:55] LABS: POC Glucose,Bedside 94 (70-110)
[2021-12-30 06:56] LABS: Anion Gap 11.6 mEq/L (5-15); Blood Urea Nitrogen 19 mg/dl (7-17); Calcium 9.2 mg/dl (8.4-10.2); Carbon Dioxide 30 mmol/L (22.0-30.0); Chloride 99 mmol/L (98-107); Creatinine Clearance Estimated 68 mL/min (50-200); Estimated Glomerular Filt Rate 55 ml/min (>60); GFR (African American) 66 ML/MIN (>60); Glucose 90 mg/dl (74-100); Magnesium 1.2 mg/dl (1.6-2.3); Potassium 3.6 mmoL/L (3.5-5.1); Sodium 137 mmol/L (136-145)
--- NOTE | 2021-12-30 07:01 | PC.NURSE ---
Addendum entered by Sofie Duque RN 12/30/21 07:28: confused at times, but cooperative Original Note: Pt is new admit for hypoglycemia, UTI. pt is alert to person, place, and situation. At this time pt is a poor historian. Will pass onto to dayshift RN to verify pt hx, surgical hx and meds with family this AM. Pt is voiding per jimenez cath with good urine output. Pt has been sleepy - did receive IV benadryl in the ED. Arousable to name. IV infusing per order. Fingerstick ACHS, fingerstick this AM was 94. Pt states she hasn't had much of an appetite. Only took a few sips of water since admission. Pt states she does not ambulate at home - gets around by wheelchair and helps her. Pt states she is unable to read/write, and needs assist with meals d/t blindness. is her emergency contact. Will pass this info on to oncoming RN. No other complaints or needs at this time. Call light in reach.
[2021-12-30 07:18] LABS: Basophils # 0.1 K/mm3 (0-0.2); Basophils % 0.9 % (0.1-2.0); Eosinophils # 0.3 K/mm3 (0.0-0.4); Hematocrit 40.6 % (37.0-47.0); Hemoglobin 12.9 g/dL (12.2-16.2); Lymphocytes # 3.8 K/mm3 (0.7-4.5); Lymphocytes % 36.9 % (10-50); Mean Corpuscular HGB Conc 31.8 g/dL (31.8-35.4); Mean Corpuscular Hemoglobin 31.5 pg (27.0-31.2); Mean Platelet Volume 8.4 fl (7.4-10.4); Monocytes # 0.7 K/mm3 (0.1-1.0); Monocytes % 6.8 % (1.7-9.3); Neutrophils # 5.3 K/mm3 (1.8-7.8); Neutrophils % 52.3 % (37.0-80.0); Platelet Count 343 K/mm3 (142-424); Red Cell Distribution Width 13.6 % (11.5-17.5); White Blood Count 10.2 K/mm3 (4.8-10.8)
--- NOTE | 2021-12-30 08:02 | P.CONPHA_ITS ---
[facility] Pharmacy VTE Monitoring - Patient Demographics Admission date: 12/30/21 Report Date: 12/30/21 Time: 08:02 Allergies/Adverse Reactions: Patient Allergies pregabalin [From Lyrica] Adverse Reaction (Mild, Verified 12/01/19 10:21) LIPS SWELLED Height: 1.6 m Weight: 83.143 kg Patient Problems: Current Active Problems UTI (urinary tract infection) (Acute) Hypoglycemia (Acute) Diabetes mellitus (Acute) Obesity (BMI 30-39.9) (Acute) SEB (acute kidney injury) (Acute) - VTE Risk Labs: VTE Related Lab Results Hgb 12.9 g/dL (12.2-16.2) 12/30/21 06:15 Hct 40.6 % (37.0-47.0) 12/30/21 06:15 Plt Count 343 K/mm3 (142-424) 12/30/21 06:15 BUN 19 mg/dl (7-17) H 12/30/21 06:15 Creatinine 1.00 mg/dl (0.52-1.04) D 12/30/21 06:15 Estimated Creat Clear 68 mL/min (50-200) 12/30/21 06:15 Was VTE Risk Assessment Performed: Yes VTE Score: 6 VTE Risk Level: Moderate Risk - Prophylaxis VTE Prophylaxis Ordered?: Yes Types of VTE Prophylaxis: TEDS Knee High Location of Applied Device: Bilateral Lower Extremeties
--- NOTE | 2021-12-30 08:28 | HMH.HP ---
*Admission Date: 12/30/21 *Chief complaint: Mental status changes/syncope/hypoglycemia *History of present illness: 71-year-old white female who is an insulin requiring type II diabetic who at home yesterday became somnolent, unarousable, EMS was called and she was found to be significantly hypoglycemic and transferred to the emergency department. ER work-up revealed hyperglycemia, other labs were nonrevealing except for leukocytosis and presence of abnormalities on urinalysis consistent with urinary tract infection. She was given dextrose intravenously which helped her mental status, IV antibiotics and fluids and admitted to hospital for further evaluation and diagnostic testing. [facility] History I have reviewed the patient's past medical history: Yes Medical History: Reports:: Coronary Artery Disease, Depression, Diabetes Mellitus Type 2, Gastroesophageal Reflux Disease(GERD), Hyperlipidemia, Hypertension, Myocardial Infarction Denies:: Cancer, Diabetes Mellitus Type 1, Internal Pacemaker, MRSA, Seizures *Have you ever received a pneumonia vaccine?: No *Have you received a flu vaccine this season?: Yes Other Medical History: Reports: Arthritis Laterality Cases: Right: Arthroscopy Knee, Total Hip Replacement Other Surgeries: Yes: Cardiac Catheterization, Cholecystectomy, Coronary Stent, EGD, Other. No: Pacemaker Amputation: No Fractures: Yes (x9) - *Social History Smoking Status: Former smoker Tobacco Type: cigarettes Alcohol Intake: never Substance Use Type: denies use *Occupational Status:: disabled Housing: house Household Members: spouse *Travel in the last 8 weeks: None - Psychiatric History Pschychiatric History:: Reports:: Depression Family Hx:: Unable to obtain Review of Systems - Review of Systems Review of systems:: pertinent systems reviewed and negative unless documented below - *Neurologic Denies seizure-like activity Meds Home Medications Medication Instructions Recorded Confirmed Type Aspirin [Aspirin 81mg EC Tab] 81 mg PO DAILY 03/19/18 12/29/21 History Gabapentin [Gabapentin 300mg Cap] 100 mg PO BID 03/19/18 12/29/21 History Insulin Aspart [Novolog Flexpen] 15 unit SQ AC 03/19/18 12/29/21 History Insulin Detemir [Levemir 30 unit SQ HS 03/19/18 12/29/21 History 100units/mL 3mL flexpen] Loratadine [Claritin 10mg 10 mg PO DAILY 03/19/18 12/29/21 History Tablet] Memantine HCl [Namenda XR 28MG] 28 mg PO DAILY 03/19/18 12/29/21 History Metformin HCl 1,000 mg PO BID 03/19/18 12/29/21 History Omeprazole [Omeprazole 20mg 20 mg PO DAILY 03/19/18 12/29/21 History Capsule] Rosuvastatin Calcium [Crestor] 10 mg PO HS 03/19/18 12/29/21 History Venlafaxine HCl [Effexor 37.5mg 75 mg PO DAILY 03/19/18 12/29/21 History tablet] Allergies Allergy/AdvReac Type Severity Reaction Status Date / Time pregabalin [From Lyrica] AdvReac Mild LIPS Verified 12/01/19 10:21 SWELLED Exam Vital signs and Labs for Last 24 Hours: Temp Pulse Resp BP Pulse Ox 98.0 F 80 18 142/69 H 95 12/30/21 04:00 12/30/21 04:00 12/30/21 04:00 12/30/21 04:00 12/30/21 04:00 Laboratory Results - last 24 hr 12/29/21 23:33: POC Glucose 140 H 12/29/21 23:45: WBC 16.2 H, RBC 4.36, Hgb 13.8, Hct 43.7, MCV 100.3 H, MCH 31.6 H, MCHC 31.5 L, RDW 13.5, Plt Count 354, MPV 7.8, Neut % (Auto) 75.1, Lymph % (Auto) 15.2, [place] % (Auto) 5.7, Eos % (Auto) 2.3, Baso % (Auto) 1.6, Neut # (Auto) 12.2 H, Lymph # (Auto) 2.5, [place] # (Auto) 0.9, Eos # (Auto) 0.4, Baso # (Auto) 0.3 H, Total Counted 100, Neutrophils % (Manual) 79 H, Band Neutrophils % 6.0, Lymphocytes % (Manual) 13, Monocytes % (Manual) 2, Platelet Estimate Normal, Hypochromasia 1+, Macrocytosis 1+, ESR 31 H 12/29/21 23:45: Sodium 139, Potassium 3.9, Chloride 98, Carbon Dioxide 32 H, Anion Gap 12.9, BUN 20 H, Creatinine 1.30 H, Estimated Creat Clear 51, Estimated GFR 40 L, Est GFR ( Amer) 49 L, Glucose 115 H, Calcium 9.8, Total Bilirubin 0.4, AST 29, ALT
[2021-12-30 09:30] LABS: Thyroid Stimulating Hormone 2.25 uIU/mL (0.465-4.68)
[2021-12-30 09:36] LABS: POC Glucose,Bedside 68 (70-110)
[2021-12-30 09:48] LABS: Vitamin B12 259 pg/mL (239-931)
[2021-12-30 11:20] LABS: POC Glucose,Bedside 81 (70-110)
[2021-12-30 17:37] LABS: POC Glucose,Bedside 176 (70-110)
--- NOTE | 2021-12-30 18:30 | PC.NURSE ---
Dr. Molina pagecullen at 1823. Made aware that patient has not voided since d/c of jimenez catheter. Bladder scanner battery is drained and bottle house cleaners supervisor involved with code stemi. Telephone order received to in and out cath patient.
--- NOTE | 2021-12-30 18:48 | PC.NURSE ---
In and out catheter 200 ml
[2021-12-30 21:29] LABS: POC Glucose,Bedside 200 (70-110)
--- NOTE | 2021-12-31 02:05 | PC.NURSE ---
REPORT FROM KENDALL PANCHAL FROM 2ND FLOOR. PT ARRIVED VIA BED TO UNIT AT THIS TIME
--- NOTE | 2021-12-31 02:05 | PC.NURSE ---
Handoff report called to KENDALL Mendez on OB. Pt transferred to OB floor via stretcher. Reassured pt that we would let her family know in the morning what room she was in.
[2021-12-31 04:00] VITALS: BP 105/64; PULSE 89; RESP 18; TEMP 36.5; O2SAT 92
[2021-12-31 05:05] VITALS: BMI 32.8
--- NOTE | 2021-12-31 05:30 | PC.NURSE ---
PT ARRIVED TO UNIT WITH HACKETT CATH IN PLACE. HACKETT REMOVED AT THIS TIME DUE TO ORDER FOR STRAIGHT CATH PRN. 200 ML OUT. PT TOLERATE WELL
[2021-12-31 06:48] LABS: Basophils # 0.1 K/mm3 (0-0.2); Basophils % 1.1 % (0.1-2.0); Eosinophils # 0.3 K/mm3 (0.0-0.4); Eosinophils % 4.4 % (0.1-12.0); Hemoglobin 11.8 g/dL (12.2-16.2); Lymphocytes # 2.3 K/mm3 (0.7-4.5); Lymphocytes % 38.4 % (10-50); Mean Corpuscular HGB Conc 31.2 g/dL (31.8-35.4); Mean Corpuscular Hemoglobin 31.5 pg (27.0-31.2); Mean Platelet Volume 7.7 fl (7.4-10.4); Monocytes # 0.4 K/mm3 (0.1-1.0); Monocytes % 6.1 % (1.7-9.3); Neutrophils % 49.9 % (37.0-80.0); Platelet Count 292 K/mm3 (142-424); Red Blood Count 3.76 M/mm3 (4.20-5.40); Red Cell Distribution Width 13.4 % (11.5-17.5); White Blood Count 6.1 K/mm3 (4.8-10.8)
[2021-12-31 06:58] LABS: Alanine Aminotransferase 18 U/L (12-78); Albumin Level 3.3 g/dl (3.5-5.0); Albumin/Globulin Ratio 1.4 (1.1-1.8); Alkaline Phosphatase 69 U/L (38-126); Anion Gap 10.8 mEq/L (5-15); Aspartate Amino Transferase 23 U/L (14-36); Bilirubin,Total 0.3 mg/dl (0.2-1.3); Blood Urea Nitrogen 16 mg/dl (7-17); Calcium 7.9 mg/dl (8.4-10.2); Carbon Dioxide 28 mmol/L (22.0-30.0); Chloride 101 mmol/L (98-107); Creatinine Clearance Estimated 68 mL/min (50-200); Estimated Glomerular Filt Rate 62 ml/min (>60); GFR (African American) 75 ML/MIN (>60); Globulin 2.4 g/dL (1.3-3.2); Glucose 338 mg/dl (74-100); Potassium 3.8 mmoL/L (3.5-5.1); Sodium 136 mmol/L (136-145); Total Protein,Serum 5.7 g/dl (6.3-8.2)
[2021-12-31 06:59] LABS: POC Glucose,Bedside 302 (70-110)
--- NOTE | 2021-12-31 07:51 | PC.NURSE ---
REMOVED BY Buck GROSSMAN RN
[2021-12-31 08:00] VITALS: BP 132/71; PULSE 85; RESP 18; TEMP 36.4; O2SAT 91
--- NOTE | 2021-12-31 08:45 | HMH.ACPN2 ---
Internal Medicine - PN: Subj *Date: 12/31/21 *Time: 08:45 Interval history: Patient's mental status continues to improve. She is oriented x3 this morning. Complains of lower abdominal pain but this is also improving, has had a good breakfast this morning. Exam Vital signs and Labs for Last 24 Hours: Temp Pulse Resp BP Pulse Ox 97.5 F L 85 18 132/71 91 L 12/31/21 08:00 12/31/21 08:00 12/31/21 08:00 12/31/21 08:00 12/31/21 08:00 Laboratory Results - last 24 hr 12/30/21 00:09: Urine Color Yellow, Urine Appearance Cloudy, Urine pH 5.5, Ur Specific [place] 1.025, Urine Protein Negative, Urine Glucose (UA) 3+, Urine Ketones Negative, Urine Blood Negative, Urine Nitrate Positive, Urine Bilirubin Negative, Urine Urobilinogen 0.2, Ur Leukocyte Esterase 1+ A, Urine WBC 10-20, Amorphous Sediment 2+, Urine Bacteria 2+ 12/30/21 06:15: Vitamin B12 259, TSH 2.25 12/30/21 09:07: POC Glucose 68 L 12/30/21 11:09: POC Glucose 81 12/30/21 17:29: POC Glucose 176 H 12/30/21 20:18: POC Glucose 200 H 12/31/21 06:15: POC Glucose 302 H* 12/31/21 06:40: WBC 6.1 D, RBC 3.76 L, Hgb 11.8 L, Hct 38.0, MCV 101.0 H, MCH 31.5 H, MCHC 31.2 L, RDW 13.4, Plt Count 292, MPV 7.7, Neut % (Auto) 49.9, Lymph % (Auto) 38.4, [place] % (Auto) 6.1, Eos % (Auto) 4.4, Baso % (Auto) 1.1, Neut # (Auto) 3.0, Lymph # (Auto) 2.3, [place] # (Auto) 0.4, Eos # (Auto) 0.3, Baso # (Auto) 0.1 12/31/21 06:40: Sodium 136, Potassium 3.8, Chloride 101, Carbon Dioxide 28, Anion Gap 10.8, BUN 16, Creatinine 0.90, Estimated Creat Clear 68, Estimated GFR 62, Est GFR ( Amer) 75, Glucose 338 H, Calcium 7.9 L, Total Bilirubin 0.3, AST 23, ALT 18, Alkaline Phosphatase 69, Total Protein 5.7 L, Albumin 3.3 L D, Globulin 2.4, Albumin/Globulin Ratio 1.4 I & O for Last 24 hours: Intake & Output 12/28/21 12/29/21 12/30/21 12/31/21 11:59 11:59 11:59 11:59 Intake Total 1422 / 1422 360 / 360 Output Total 2200 / 2200 1600 / 1600 Balance -778 / -778 -1240 / -1240 Weight 183 lb 4.8 oz 185 lb 5 oz Microbiology Reports for the Last 24 Hours: Microbiology 12/30/21 00:09 Urine,Catheterized Urine Culture - Preliminary Gram Negative Rods Narrative: Visual impairment noted at baseline, otherwise neurologically intact. Lungs clear, heart rate regular. Abdomen very slightly tender in the lower flank areas but improving. No clubbing or edema. Neurologically otherwise intact except for global weakness. Assessment and Plan (1) SEB (acute kidney injury) Status: Acute Category: Medical Code(s): N17.9 - Acute kidney failure, unspecified (2) Diabetes mellitus Status: Acute Qualifiers: Diabetes mellitus type: type 2 Diabetes mellitus mcfp insulin use: with watermelon inspector use Diabetes mellitus complication status: with other specified complication Qualified Code(s): E11.69 - Type 2 diabetes mellitus with other specified complication; Z79.4 - intermodal owner operator truck driver (current) use of insulin Category: Medical Code(s): E11.9 - Type 2 diabetes mellitus without complications (3) Hypoglycemia Status: Acute Category: Medical Code(s): E16.2 - Hypoglycemia, unspecified (4) Obesity (BMI 30-39.9) Status: Acute Category: Medical Code(s): E66.9 - Obesity, unspecified (5) UTI (urinary tract infection) Status: Acute Qualifiers: Urinary tract infection type: site unspecified Hematuria presence: without hematuria Qualified Code(s): N39.0 - Urinary tract infection, site not specified Category: Medical Code(s): N39.0 - Urinary tract infection, site not specified (6) Hypotension Status: Acute Category: Medical Code(s): I95.9 - Hypotension, unspecified (7) Near syncope Status: Acute Category: Medical Code(s): R55 - Syncope and collapse - Assessment and plan all Dx Assessment and Plan for all problems:: Wait sensitivities for final disposition Re: Treatment of UTI. Blood cultures remain nega
--- NOTE | 2021-12-31 10:36 | SW/DCPLANNER ---
Addendum entered by Albania Garcia 12/31/21 11:35: Blanca with [facility] has called to confirm services to begin on 01/03/22. Original Note: The plan for this patient is to discharge home later today. Patient has expressed an interested in [facility] home [facility]. Patient information and order has been faxed to [facility]: I will follow up once information is reviewed.
--- NOTE | 2021-12-31 10:36 | HMH.PTEV ---
Physical Therapy Evaluation Rehab PT IP Evaluation Start: 12/31/21 08:45 Freq: ONCE Status: Active Protocol: Document 12/31/21 10:33 MIKE (Rec: 12/31/21 10:36 MIKE [id number]) Subjective/History History History Pt is a 71 y/o female admitted to [facility] thru ED. Pt was brought in for AMS and weakness by . Pt found to be hypoglycemic and have UTI Subjective Subjective No complaints from pt - pt's notes pt is not very mobile at baseline using WC for movement and transfers w/ assist Rehab PT IP Eval Objective Appearance Patient Behavior Cooperative,Passive,Fatigued Patient Orientation Name,Birthday,Situation Difficulty following instructions none Speech Pattern Appropriate,Soft-Spoken Ambulation Patient Able to Ambulate Yes Ambulation Observation IP General Gait Pattern Observation Shuffling Step Ambulation Distance (feet) 2 Ambulation Assistive Device None Ambulation Ability Contact Guard/Hand Hold Balance Ability to Arise Able, uses arms to help Sitting Balance Steady, safe Standing Balance Steady, wide stance Dynamic Sitting Balance Ability Good Dynamic Standing Balance Ability Poor Transfers Bed Transfer Ability Independent Chair Transfer Ability Independent Sit to Stand Bed Transfer Ability Contact Guard/Hand Hold Sit to Stand Chair Transfer Ability Contact Guard/Hand Hold Rehab PT IP prob,goals,plan Problems Date of Evaluation: 12/31/21 Rehab Potential Rehab Potential Innapropriate for Skilled Therapy Equipment Needs Assistive Devices Wheelchair Discharge Plan PT Discharge Plan Pt at baseline function - no skilled IP PT needed at this time - pt would benefit from HHPT to decreased burden of care. G -code Required Yes Eval Complexity Eval Charge Codes 92238 - Moderate Complexity G Codes PT Current Status Mobility PT Current Status Modifier CL-At least 60% but less than 80% impaired, limited or restricted PT Goal Status Mobility PT Goal Status Modifer CL-At least 60% but less than 80% impaired, limited or restricted
--- NOTE | 2021-12-31 10:50 | HMH.OTEV ---
OT Inpatient Evaluation Rehab OT IP Evaluation Start: 12/31/21 08:45 Freq: ONCE Status: Complete Protocol: Document 12/31/21 10:39 VU (Rec: 12/31/21 10:50 VU [id number]) Rehab OT IP Assessment Subjective History 71-year-old white female who is an insulin requiring type II diabetic who at home yesterday became somnolent, unarousable, EMS was called and she was found to be significantly hypoglycemic and transferred to the emergency department. ER work-up revealed hyperglycemia, other labs were nonrevealing except for leukocytosis and presence of abnormalities on urinalysis consistent with urinary tract infection. She was given dextrose intravenously which helped her mental status, IV antibiotics and fluids and admitted to hospital for further evaluation and diagnostic testing. [facility] History I have reviewed the patient's past medical history: Yes Medical History: Reports:: Coronary Artery Disease, Depression, Diabetes Mellitus Type 2, Gastroesophageal Reflux Disease(GERD), Hyperlipidemia, Hypertension, Myocardial Infarction. Patient lives in 1 story home with . Patient uses w/c to maneuver within home and outside of home. assist with drsg, transfers and bathing at times. Patient completes SPT CGA at home. Subjective I can get up. Instructed Patient on proper hand/foot placement to complete bed mobility, transfers, and toileting with usage of BSC. Patient completed all tasks Min A/CGA. P
[2021-12-31 11:30] LABS: POC Glucose,Bedside 233 (70-110)
[2021-12-31 12:26] LABS: Hemoglobin A1C 9.1 % (4.0-6.0)
--- NOTE | 2021-12-31 14:48 | HMH.DCSUM ---
General - General Admission date:: 12/30/21 Discharge date: 12/31/21 HPI HPI: 71-year-old white female who is an insulin requiring type II diabetic who at home yesterday became somnolent, unarousable, EMS was called and she was found to be significantly hypoglycemic and transferred to the emergency department. ER work-up revealed hyperglycemia, other labs were nonrevealing except for leukocytosis and presence of abnormalities on urinalysis consistent with urinary tract infection. She was given dextrose intravenously which helped her mental status, IV antibiotics and fluids and admitted to hospital for further evaluation and diagnostic testing. Hospital Course Hospital Course: Patient was admitted, treated with ceftriaxone, improved very nicely over the next 24 hours and became alert, oriented, significantly compromised because of her obesity, functional decline issues and blindness but achieved her baseline functioning level. Culture is still pending, growing gram-negative rods. Patient wished to be discharged home today. Plan will be to get home health involved. Based on my [id number] evaluation today because of her blindness, obesity, diabetic neuropathy and functional decline issues patient is unable to leave home without a great deal of difficulty and I recommended PT/OT/nursing care evaluation at home. Will prescribe cefdinir twice daily for the next week, culture pending. We will see her back in the office in 3 days to discuss her diabetes care and I have asked her to stop her long-acting insulin in the meantime. Objective Vital signs: Temp Pulse Resp BP Pulse Ox 97.5 F L 85 18 132/71 91 L 12/31/21 08:00 12/31/21 08:00 12/31/21 08:00 12/31/21 08:00 12/31/21 08:00 no acute distress, morbidly obese, chronically ill appearing - *Routine HEENT Exam Head: Present: normocephalic Eye: Present: EOMI, PERRL ENT: Present: mucous membranes moist - *Routine Neck Exam Present: supple - *Routine Respiratory Exam Present: CTA bilaterally - *Routine Cardiovascular Exam Present: RRR - *Routine Abdominal Exam Present: soft, normoactive bowel sounds, obese. Absent: tenderness - *Routine Extremities Exam Absent: cyanosis, clubbing, edema - *Routine Skin Exam Present: warm. Absent: rash - *Routine Neurological Exam Present: alert, oriented X3 Visual impairment noted, globally weak - Detailed Eye Exam Eyelids: Bilateral normal inspection Results Labs on day of discharge: Labs from last 24 hours 12/31/21 12/31/21 12/31/21 10:52 06:40 06:40 WBC RBC Hgb Hct MCV MCH MCHC RDW Plt Count MPV Neut % (Auto) Lymph % (Auto) [place] % (Auto) Eos % (Auto) Baso % (Auto) Neut # (Auto) Lymph # (Auto) [place] # (Auto) Eos # (Auto) Baso # (Auto) Sodium 136 Potassium 3.8 Chloride 101 Carbon Dioxide 28 Anion Gap 10.8 BUN 16 Creatinine 0.90 Estimated Creat Clear 68 Estimated GFR 62 Est GFR ( Amer) 75 Glucose 338 H POC Glucose 233 H Hemoglobin A1c 9.1 H Calcium 7.9 L Total Bilirubin 0.3 AST 23 ALT 18 Alkaline Phosphatase 69 Total Protein 5.7 L Albumin 3.3 L D Globulin 2.4 Albumin/Globulin Ratio 1.4 Urine Color Urine Appearance Urine pH Ur Specific [place] Urine Protein Urine Glucose (UA) Urine Ketones Urine Blood Urine Nitrate Urine Bilirubin Urine Urobilinogen Ur Leukocyte Esterase Urine WBC Amorphous Sediment Urine Bacteria 12/31/21 12/31/21 12/30/21 06:40 06:15 20:18 WBC 6.1 D RBC 3.76 L Hgb 11.8 L Hct 38.0 MCV 101.0 H MCH 31.5 H MCHC 31.2 L RDW 13.4 Plt Count 292 MPV 7.7 Neut % (Auto) 49.9 Lymph % (Auto) 38.4 [place] % (Auto) 6.1 Eos % (Auto) 4.4 Baso % (Auto) 1.1 Neut # (Auto) 3.0 Lymph # (Auto) 2.3 [place] # (Auto) 0.4
--- NOTE | 2022-01-02 10:42 | CARE MANAGER ---
Contacted patient's regarding follow up from hospital discharge on 12/31/21. He states they were able to hot die picker her antibiotic and she is slowly improving. They have not heard from home health as of yet so provided the phone number to [facility] to call them as patient has follow up MD appt on and services were supposed to start on . states he will reach out to them. They deny any other questions or concerns. KENDALL Winston
[2022-01-02 16:54] LABS: Antipancreatic islet cell antb Negative (Neg:<1:1)
== END 2021-12-31 15:30 | disposition home health service (06) ==
LOC: ER 12-30 00:37 → 2ND 12-30 01:34 → OB 12-31 01:36
PROVIDERS: Admitting Provider Emergency Medicine; Emergency Provider Emergency Medicine; PCP Internal Medicine Adolescent Medicine; Visit Provider Internal Medicine Adolescent Medicine
DX: N39.0 Urinary tract infection, site not specified (principal); E11.649 Type 2 diabetes mellitus with hypoglycemia without coma; Z79.84 Long term (current) use of oral hypoglycemic drugs; Z79.899 Other long term (current) drug therapy; Z20.822 Contact with and (suspected) exposure to COVID-19; I25.10 Atherosclerotic heart disease of native coronary artery without angina pectoris; K21.9 Gastro-esophageal reflux disease without esophagitis; I10 Essential (primary) hypertension; Z95.5 Presence of coronary angioplasty implant and graft; N17.9 Acute kidney failure, unspecified; R55 Syncope and collapse
CPT/HCPCS: G0378; G0379; 36415; 51702; 80048; 80053; 81001; 82607; 82962; 83036; 83605; 83735; 84145; 84443; 85007; 85025; 85651; 86140; 86341; 87040; 87086; 87088; 87186; 96365; 96367; 96375; 97162; 97165; C9803; J0696; U0003; U0005

== ENCOUNTER 2022-01-25 20:31 | Emergency (ER) | payer MEDICARE, SELFPAY ==
[2022-01-25 21:11] VITALS: BP 165/96; PULSE 107; RESP 20; TEMP 37; O2SAT 88; BMI 32.4
--- NOTE | 2022-01-25 21:17 | XR_ITS ---
PROCEDURE INFORMATION: Exam: XR Chest Exam date and time: 01/25/2022 9:34 PM Age: 71 years old Clinical indication: Injury or trauma; Fall; Blunt trauma (contusions or hematomas) TECHNIQUE: Imaging protocol: XR of the chest. Views: 1 view. COMPARISON: CR [id number] XR chest portable 03/18/2018 6:16 PM FINDINGS: Lungs: Streaky basal opacities which may be hypoventilatory. No consolidation. Pleural spaces: No pneumothorax. Heart/Mediastinum: No cardiomegaly. Diaphragm: Elevation of the right hemidiaphragm. Bones/joints: Degenerative changes of the shoulders. IMPRESSION: No acute traumatic findings.
--- NOTE | 2022-01-25 21:18 | CT_ITS ---
PROCEDURE INFORMATION: Exam: CTA Chest With Contrast Exam date and time: 01/25/2022 10:25 PM Age: 71 years old Clinical indication: Injury or trauma; Fall; Blunt trauma (contusions or hematomas) TECHNIQUE: Imaging protocol: Computed tomographic angiography of the chest with contrast. 3D rendering (Not supervised by radiologist): MIP and/or 3D reconstructed images were created by the technologist. Radiation optimization: All CT scans at this facility use at least one of these dose optimization techniques: automated exposure control; mA and/or kV adjustment per patient size (includes targeted exams where dose is matched to clinical indication); or iterative reconstruction. Contrast material: ISOVUE 370; Contrast volume: 70 ml; Contrast route: INTRAVENOUS (IV); COMPARISON: CR XR CHEST PORTABLE 01/25/2022 9:34 PM FINDINGS: Tubes, catheters and devices: Gastric lap band is present. Pulmonary arteries: Normal. No pulmonary emboli. Aorta: No aortic aneurysm. No aortic dissection. Other arteries: Calcified atherosclerosis. No aneurysm. Lungs: Dependent ground-glass opacities. Pleural spaces: No pneumothorax. No pleural effusion. Heart: No cardiomegaly. No pericardial effusion. Lymph nodes: No enlarged lymph nodes. Bones/joints: Bones are not well evaluated. See CT of the thoracic spine from same date for further evaluation. Soft tissues: No significant swelling. IMPRESSION: Dependent ground-glass opacities which may be hypoventilatory however pneumonitis or mild developed edema should be clinically excluded.
--- NOTE | 2022-01-25 21:18 | CT_ITS ---
PROCEDURE INFORMATION: Exam: CT Head Without Contrast Exam date and time: 01/25/2022 10:11 PM Age: 71 years old Clinical indication: Injury or trauma; Fall; Blunt trauma (contusions or hematomas); Without loss of consciousness TECHNIQUE: Imaging protocol: Computed tomography of the head without contrast. Radiation optimization: All CT scans at this facility use at least one of these dose optimization techniques: automated exposure control; mA and/or kV adjustment per patient size (includes targeted exams where dose is matched to clinical indication); or iterative reconstruction. COMPARISON: No relevant prior studies available. FINDINGS: Brain: Moderately advanced chronic microvascular ischemic disease without acute intraparenchymal hemorrhage and no obvious acute ischemic stroke. No intra-or extra-axial fluid collection, no supra-or infratentorial mass, no mass effect or midline shift. 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 Paranasal sinuses: No significant mucoperiosteal thickening in the visualized paranasal sinuses. Mastoid air cells: No mastoid effusion. Bones/joints: Visualized skull bones are grossly normal. Soft tissues: Moderately severe atherosclerotic calcification of the intracranial arteries. IMPRESSION: 1. 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 2. Differential diagnosis includes advanced chronic microvascular ischemic disease, demyelinating disorder, PML, drug toxicity/overdose, and postradiation changes. 3. NO acute intracranial hemorrhage, mass lesion, hydrocephalus or obvious acute ischemic infarction.
--- NOTE | 2022-01-25 21:20 | XR_ITS ---
PROCEDURE INFORMATION: Exam: XR Pelvis Exam date and time: 01/25/2022 9:38 PM Age: 71 years old Clinical indication: Injury or trauma; Fall; Blunt trauma (contusions or hematomas); Bilateral; Pelvic region; Prior surgery; Surgery date: 6+ months; Surgery type: Pelvis, back and hip surgery TECHNIQUE: Imaging protocol: XR pelvis. Views: 1 or 2 view. COMPARISON: CR [id number] HIP RT 2-3V W/PELVIS IF PERFOR 06/16/2016 10:38 AM FINDINGS: Tubes, catheters and devices: Stable surgical hardware. Bones/joints: Degenerative changes of the lumbosacral spine and hips. No acute fracture. Soft tissues: Unremarkable. IMPRESSION: Chronic changes without acute process.
--- NOTE | 2022-01-25 21:20 | CT_ITS ---
PROCEDURE INFORMATION: Exam: CT Lumbar Spine Without Contrast Exam date and time: 01/25/2022 10:20 PM Age: 71 years old Clinical indication: Injury or trauma; Fall TECHNIQUE: Imaging protocol: Computed tomography images of the lumbar spine without contrast. Radiation optimization: All CT scans at this facility use at least one of these dose optimization techniques: automated exposure control; mA and/or kV adjustment per patient size (includes targeted exams where dose is matched to clinical indication); or iterative reconstruction. COMPARISON: CT THORACIC SPINE WO CON 01/25/2022 10:17 PM FINDINGS: Vertebrae: Advanced degenerative changes. Subtle superior endplate irregularity involving T11. Status post posterior decompression with posterior fusion hardware at L4-L5. Soft tissues: Unremarkable. IMPRESSION: Subtle superior endplate irregularity involving T11 which is of unknown chronicity. Correlation with point tenderness recommended.
--- NOTE | 2022-01-25 21:20 | CT_ITS ---
PROCEDURE INFORMATION: Exam: CT Thoracic Spine Without Contrast Exam date and time: 01/25/2022 10:17 PM Age: 71 years old Clinical indication: Injury or trauma; Fall; Blunt trauma (contusions or hematomas) TECHNIQUE: Imaging protocol: Computed tomography images of the thoracic spine without contrast. Radiation optimization: All CT scans at this facility use at least one of these dose optimization techniques: automated exposure control; mA and/or kV adjustment per patient size (includes targeted exams where dose is matched to clinical indication); or iterative reconstruction. COMPARISON: CT CERVICAL SPINE WO CON 01/25/2022 10:13 PM FINDINGS: Vertebrae: Subtle superior endplate irregularity involving T11. Moderate multilevel degenerative changes. Soft tissues: Unremarkable. IMPRESSION: Subtle superior endplate irregularity involving T11 which is of unknown chronicity. Correlation with point tenderness is recommended.
--- NOTE | 2022-01-25 21:20 | CT_ITS ---
PROCEDURE INFORMATION: Exam: CT Cervical Spine Without Contrast Exam date and time: 01/25/2022 10:13 PM Age: 71 years old Clinical indication: Injury or trauma; Fall; Blunt trauma TECHNIQUE: Imaging protocol: Computed tomography images of the cervical spine without contrast. Radiation optimization: All CT scans at this facility use at least one of these dose optimization techniques: automated exposure control; mA and/or kV adjustment per patient size (includes targeted exams where dose is matched to clinical indication); or iterative reconstruction. COMPARISON: CT HEAD/BRAIN WO CON 01/25/2022 10:11 PM FINDINGS: Bones/joints: Advanced multilevel degenerative changes. Mild scoliosis. No fracture. Lungs: Lung apices are normal. Soft tissues: No soft tissue swelling. IMPRESSION: No acute findings.
--- NOTE | 2022-01-25 21:22 | ECG_ITS ---
APPROVED REPORT Exam: Resting ECG HR:98 bpm ECG Measurements Heart Rate 98 AXES MS 132 P 55 QRSd 91 QRS -24 QT 352 T 47 QTc 408 Conclusion SINUS RHYTHM LOW QRS VOLTAGE IN PRECORDIAL LEADS [QRS DEFLECTION < 1.0 mV IN CHEST LEADS] Old inferior changes UNCONFIRMED REPORT Electronically signed by : Luis Hope MD 01/26/2022 08:15:40
[2022-01-25 21:24] LABS: Basophils # 0.1 K/mm3 (0-0.2); Basophils % 0.9 % (0.1-2.0); Eosinophils # 0.3 K/mm3 (0.0-0.4); Hematocrit 43.9 % (37.0-47.0); Hemoglobin 14.1 g/dL (12.2-16.2); Lymphocytes # 1.6 K/mm3 (0.7-4.5); Mean Corpuscular HGB Conc 32.1 g/dL (31.8-35.4); Mean Corpuscular Hemoglobin 32.7 pg (27.0-31.2); Mean Corpuscular Volume 101.9 fl (81-99); Monocytes # 0.5 K/mm3 (0.1-1.0); Monocytes % 4.7 % (1.7-9.3); Neutrophils # 7.9 K/mm3 (1.8-7.8); Neutrophils % 76.4 % (37.0-80.0); Platelet Count 327 K/mm3 (142-424); Red Cell Distribution Width 13.7 % (11.5-17.5); White Blood Count 10.4 K/mm3 (4.8-10.8)
--- NOTE | 2022-01-25 21:25 | PC.NURSE ---
Patient is currently on 2L NC
[2022-01-25 21:32] LABS: ABG Base Excess -3.5 mmol/L (-2.4-2.3); ABG HCO3 21.3 mmhg (22.0-26.0); ABG Oxygen Saturation 96 % (90-100); ABG PCO2 35.3 mmhg (35.0-45.0); ABG PO2 85.5 mmhg (80-100); ABG TCO2 22.4 mmhg (23-27)
[2022-01-25 21:33] LABS: Allen's Test Acceptable; Oxygen 2L %; Source Right Radial
[2022-01-25 21:34] LABS: Alanine Aminotransferase 30 U/L (12-78); Albumin Level 4.4 g/dl (3.5-5.0); Albumin/Globulin Ratio 1.4 (1.1-1.8); Alkaline Phosphatase 70 U/L (38-126); Anion Gap 14.1 mEq/L (5-15); Aspartate Amino Transferase 45 U/L (14-36); Bilirubin,Total 0.6 mg/dl (0.2-1.3); Blood Urea Nitrogen 14 mg/dl (7-17); Calcium 9.6 mg/dl (8.4-10.2); Carbon Dioxide 26 mmol/L (22.0-30.0); Chloride 100 mmol/L (98-107); Creatinine Clearance Estimated 68 mL/min (50-200); Estimated Glomerular Filt Rate 62 ml/min (>60); GFR (African American) 75 ML/MIN (>60); Globulin 3.1 g/dL (1.3-3.2); Glucose 342 mg/dl (74-100); Potassium 4.1 mmoL/L (3.5-5.1); Sodium 136 mmol/L (136-145); Total Protein,Serum 7.5 g/dl (6.3-8.2)
[2022-01-25 21:39] LABS: C-Reactive Protein 31.9 mg/L (0-4)
[2022-01-25 21:51] LABS: Troponin I < 0.01 ng/ml (0.00-0.034)
[2022-01-25 21:53] LABS: Procalcitonin 0.147 ng/mL (0.0-2.0)
[2022-01-25 22:00] VITALS: BP 160/115; PULSE 99
--- NOTE | 2022-01-25 22:51 | HMH.EDFALL ---
ED Disposition Clinical Impression: Fall Qualifiers: Encounter type: initial encounter Qualified Code(s): W19.XXXA - Unspecified fall, initial encounter Lumbar contusion Qualifiers: Encounter type: initial encounter Qualified Code(s): S30.0XXA - Contusion of lower back and pelvis, initial encounter Disposition: Home, Self-Care Condition on Discharge: Good Instructions: DI for Low Back Pain Additional Instructions: fluids and call pcp for follow up Referrals: Luis Hope MD [Primary Care Provider] - - Critical Care Critical Care Time: No Attestation: On 01/25/22, the high probability of a clinically significant, sudden or life threatening deterioration of the following system(s) required my full and direct attention, intervention and personal management. The time I documented below is in addition to time spent performing reported procedures but includes the following listed in this critical care notation. Medical Decision Making - Medical Records Medical records reviewed: Yes: I reviewed the patient's medical records. - Last Inquiry Pt receiving controlled substance: No Vital Signs: 01/25/22 21:11 Temperature 98.6 F Temperature Source Oral Pulse Rate [Apical] 107 H Respiratory Rate 20 Blood Pressure [Right Arm] 165/96 H Blood Pressure Mean [Right Arm] 119 Blood Pressure Source [Right Arm] Automatic Cuff Blood Pressure Position [Right Arm] Sitting 02 Sat by Pulse Oximetry 88 L Oxygen Delivery Method Room Air - Lab Data Lab results reviewed: Yes: I reviewed the patient's lab results. Lab Results 01/25/22 21:16: WBC 10.4, RBC 4.30, Hgb 14.1, Hct 43.9, MCV 101.9 H, MCH 32.7 H, MCHC 32.1, RDW 13.7, Plt Count 327, MPV 8.0, Neut % (Auto) 76.4, Lymph % (Auto) 15.0, [place] % (Auto) 4.7, Eos % (Auto) 3.0, Baso % (Auto) 0.9, Neut # (Auto) 7.9 H, Lymph # (Auto) 1.6, [place] # (Auto) 0.5, Eos # (Auto) 0.3, Baso # (Auto) 0.1 01/25/22 21:16: Sodium 136, Potassium 4.1, Chloride 100, Carbon Dioxide 26, Anion Gap 14.1, BUN 14, Creatinine 0.90, Estimated Creat Clear 68, Estimated GFR 62, Est GFR ( Amer) 75, Glucose 342 H, Calcium 9.6, Total Bilirubin 0.6, AST 45 H, ALT 30, Alkaline Phosphatase 70, Troponin I < 0.01, C-Reactive Protein 31.9 H, Total Protein 7.5 D, Albumin 4.4, Globulin 3.1, Albumin/Globulin Ratio 1.4, Procalcitonin 0.147 01/25/22 21:18: Specimen Source Right radial, O2 % 2l, ABG pH 7.40, ABG pCO2 35.3, ABG pO2 85.5, ABG HCO3 21.3 L, ABG Total CO2 22.4 L, ABG O2 Saturation 96, ABG Base Excess -3.5 L, Kennedy Test Acceptable 01/25/22 23:01: Urine Color Yellow, Urine Appearance Clear, Urine pH 5.0, Ur Specific [place] 1.010, Urine Protein Negative, Urine Glucose (UA) 3+, Urine Ketones 1+, Urine Blood Negative, Urine Nitrate Negative, Urine Bilirubin Negative, Urine Urobilinogen 0.2, Ur Leukocyte Esterase Negative, Urine WBC 3-5, Urine Yeast 2+ 01/26/22 00:17: Troponin I < 0.01 Result diagrams: 01/25/22 21:16 01/25/22 21:16 Orders (Tests/Meds): ED MEDICATIONS Discontinued Medications Generic Name Dose Route Start Last Admin Trade Name Freq PRN Reason Stop Dose Admin Albuterol/Ipratropium 3 ml 01/25/22 21:38 01/25/22 21:25 Ipratropium/Albuterol 3 Ml Neb IH 01/25/22 21:39 3 ml ONCE ONE Administration Sodium Chloride 1,000 mls @ 999 mls/hr 01/25/22 21:30 01/25/22 21:57 Sod Chlor 0.9% 1000ml Bag IV 01/25/22 22:30 999 mls/hr .Q1H1M RAEGAN Administration Iopamidol 75 ml 01/25/22 22:41 01/25/22 22:42 Iopamidol-370 (76%);100ml Bottle IV 01/25/22 22:42 75 ml ONCE ONE Administration Ketorolac Tromethamine 30 mg 01/25/22 22:50 01/25/22 22:51 Ketorolac 30mg/Ml Vial IV 01/25/22 22:51 30 mg ONCE ONE Administration Methylprednisolone Sodium Succinate 125 mg 01/25/22 21:34 01/25/22 21:56 Methylprednisolone Sod Succ 125mg Vial IV 01/25/22 21:35 125 mg ONCE ONE Administration Morphine Sulfate 2 mg 01/26/22 01:08 Morphine 2mg/Ml Syringe IV
[2022-01-25 23:00] VITALS: BP 149/80
[2022-01-25 23:30] VITALS: BP 140/75
[2022-01-26] VITALS: BP 158/85; PULSE 97
[2022-01-26 00:30] VITALS: BP 171/94
[2022-01-26 00:59] LABS: Microscopic, Urine URINE MICROSCOPIC (MICROSCOPIC)
[2022-01-26 01:00] VITALS: BP 162/95; PULSE 104; O2SAT 93
[2022-01-26 01:02] LABS: Appearance,Urine CLEAR (Clear); Bilirubin,Urine Negative (Negative); Blood, Urine Negative (Negative); Color,Urine YELLOW (Yellow); Glucose,Urine (UA) 3+ (Negative); Ketones,Urine 1+ (Negative); Leukocyte Esterase,Urine Negative (Negative); Nitrate,Urine Negative (Negative); Protein,Urine Negative (Negative); Urobilinogen,Urine 0.2 EU/dl (0.2)
[2022-01-26 01:04] LABS: Troponin I < 0.01 ng/ml (0.00-0.034)
[2022-01-26 01:06] LABS: Yeast,Urine 2+ /lpf
[2022-01-26 01:19] VITALS: BP 142/85; PULSE 78; RESP 18; TEMP 36.8; O2SAT 99
== END 2022-01-26 01:36 | disposition home or self-care (01) ==
PROVIDERS: Emergency Provider Emergency Medicine; PCP Internal Medicine Adolescent Medicine
DX: S30.0XXA Contusion of lower back and pelvis, initial encounter (principal); W01.0XXA Fall on same level from slipping, tripping and stumbling without subsequent striking against object, initial encounter; Y92.012 Bathroom of single-family (private) house as the place of occurrence of the external cause; S00.03XA Contusion of scalp, initial encounter; I25.10 Atherosclerotic heart disease of native coronary artery without angina pectoris; I10 Essential (primary) hypertension; K21.9 Gastro-esophageal reflux disease without esophagitis; E11.9 Type 2 diabetes mellitus without complications; E78.5 Hyperlipidemia, unspecified; Z79.899 Other long term (current) drug therapy
CPT/HCPCS: 36415; 70450; 71045; 71275; 72125; 72128; 72131; 72170; 80053; 81001; 82803; 84145; 84484; 85025; 86140; 93005; 96360; 96365; 96375; 99284; J2405; Q9967

== ENCOUNTER 2022-01-29 13:38 | Observation (INO) | payer MEDICARE, SELFPAY ==
[2022-01-29] VITALS (11 sets, daily range): BP systolic 105–153; BP diastolic 63–90; PULSE 100–113; RESP 15–23; TEMP 36.4–36.9; O2SAT 89–99; BMI 32.9; BMI 32.2
--- NOTE | 2022-01-29 13:27 | ECG_ITS ---
APPROVED REPORT Exam: Resting ECG HR:105 bpm ECG Measurements Heart Rate 105 AXES OH 134 P 61 QRSd 99 QRS -17 QT 340 T 67 QTc 401 Conclusion SINUS TACHYCARDIA WITH OCCASIONAL SUPRAVENTRICULAR PREMATURE COMPLEXES MODERATE ST DEPRESSION [0.05+ mV ST DEPRESSION] ABNORMAL ECG UNCONFIRMED REPORT Electronically signed by : Luis Hope MD 01/30/2022 17:34:31
--- NOTE | 2022-01-29 13:39 | XR_ITS ---
FINAL REPORT CLINICAL HISTORY: Generalized weakness FINDINGS: SINGLE VIEW CHEST The heart is normal in size. There is an elevated right hemidiaphragm. There is mild bibasilar atelectasis. There is no pneumothorax. There is a chronic fracture involving the proximal left humerus. IMPRESSION: Bibasilar atelectasis. Reviewed, Interpreted and Dictated by Del De Leon III, MD Transcribed by Joaquina Delcid Authenticated by Del De Leon III, MD on 01/29/2022 03:02:41 PM [facility]
--- NOTE | 2022-01-29 13:45 | HMH.EDGENADL ---
ED Disposition Clinical Impression: Elevated troponin, Abnormal EKG Compression fracture of T11 vertebra Qualifiers: Encounter type: initial encounter Qualified Code(s): S22.080A - Wedge compression fracture of T11-T12 vertebra, initial encounter for closed fracture Disposition: Admitted as Observation Condition on Discharge: Fair - Critical Care Critical Care Time: No Attestation: On , the high probability of a clinically significant, sudden or life threatening deterioration of the following system(s) required my full and direct attention, intervention and personal management. The time I documented below is in addition to time spent performing reported procedures but includes the following listed in this critical care notation. Medical Decision Making - Medical Records Medical records reviewed: Yes: I reviewed the patient's medical records. MR Comment: Reviewed emergency department note from 01/25/2022. Reviewed CT and x-ray results. Subtle irregularity of the T11 superior endplate noted. Reviewed lab results from that visit. - Last Inquiry Pt receiving controlled substance: Yes Last was queried for this patient: Yes Risks and benefits of using a controlled substance: were not discussed with pt by me Vital Signs: 01/29/22 13:28 01/29/22 14:08 01/29/22 14:39 Temperature 98.4 F Temperature Source Oral Pulse Rate 109 H 113 H Pulse Rate [Right Radial] 106 H Respiratory Rate 23 21 20 Blood Pressure 140/81 138/90 Blood Pressure [Right Arm] 153/88 H Blood Pressure Mean [Right Arm] 109 02 Sat by Pulse Oximetry 95 94 L 93 L Oxygen Delivery Method Room Air Room Air Room Air 01/29/22 15:02 01/29/22 15:30 Temperature Temperature Source Pulse Rate 107 H 102 H Pulse Rate [Right Radial] Respiratory Rate 17 21 Blood Pressure 137/82 134/79 Blood Pressure [Right Arm] Blood Pressure Mean [Right Arm] 02 Sat by Pulse Oximetry 90 L 89 L Oxygen Delivery Method Room Air Room Air - Lab Data Lab Results 01/29/22 13:56: WBC 8.8, RBC 4.21, Hgb 13.9, Hct 42.0, MCV 99.8 H, MCH 32.9 H, MCHC 33.0, RDW 13.8, Plt Count 383, MPV 8.2, Neut % (Auto) 69.0, Lymph % (Auto) 20.5, [place] % (Auto) 6.8, Eos % (Auto) 2.5, Baso % (Auto) 1.1, Neut # (Auto) 6.1, Lymph # (Auto) 1.8, [place] # (Auto) 0.6, Eos # (Auto) 0.2, Baso # (Auto) 0.1 01/29/22 13:56: Sodium 135 L, Potassium 3.8, Chloride 101, Carbon Dioxide 25, Anion Gap 12.8, BUN 15, Creatinine 0.80, Estimated Creat Clear 67, Estimated GFR 71, Est GFR ( Amer) 86, Glucose 248 H, Calcium 8.9, Total Bilirubin 0.8, AST 20, ALT 18, Alkaline Phosphatase 85, Troponin I 0.08 H, Total Protein 6.9, Albumin 3.9, Globulin 3.0, Albumin/Globulin Ratio 1.3 01/29/22 13:58: POC Glucose 256 H 01/29/22 14:52: SARS-CoV-2 (PCR) Not detected, Influenza A Untype (PCR) Not detected, Influenza Type B (PCR) Not detected Result diagrams: 01/29/22 13:56 01/29/22 13:56 Orders (Tests/Meds): ED MEDICATIONS Generic Name Dose Route Start Last Admin Trade Name Freq PRN Reason Stop Dose Admin Sodium Chloride 10 ml 01/29/22 13:39 Sodium Chloride 0.9% 10ml Flush Syringe IV 02/28/22 13:38 NEEDED PRN Maintain IV Site Discontinued Medications Generic Name Dose Route Start Last Admin Trade Name Freq PRN Reason Stop Dose Admin Aspirin 324 mg 01/29/22 14:50 01/29/22 15:34 Aspirin 81mg Chewable Tablet PO 01/29/22 14:51 324 mg ONCE ONE Administration Morphine Sulfate 4 mg 01/29/22 14:41 01/29/22 14:48 Morphine 4mg/Ml Syringe IV 01/29/22 14:42 4 mg ONCE ONE Administration Ondansetron HCl 4 mg 01/29/22 14:41 01/29/22 14:48 Ondansetron 4mg/2ml Vial IV 01/29/22 14:42 4 mg ONCE ONE Administration Sodium Chloride 1,000 ml 01/29/22 14:42 01/29/22 14:48 Sodium Chloride 0.9% 1000ml Bag IV 01/29/22 14:43 1,000 ml BOLUS ONE Administration ORDERS Category Date Time Status Troponin I Q3H Lab 01/29/22 16:45 Ordered Troponin
[2022-01-29 14:06] LABS: POC Glucose,Bedside 256 (70-110)
[2022-01-29 14:16] LABS: Basophils # 0.1 K/mm3 (0-0.2); Basophils % 1.1 % (0.1-2.0); Chloride 101 mmol/L (98-107); Eosinophils # 0.2 K/mm3 (0.0-0.4); Eosinophils % 2.5 % (0.1-12.0); Hemoglobin 13.9 g/dL (12.2-16.2); Lymphocytes # 1.8 K/mm3 (0.7-4.5); Lymphocytes % 20.5 % (10-50); Mean Corpuscular Hemoglobin 32.9 pg (27.0-31.2); Mean Corpuscular Volume 99.8 fl (81-99); Mean Platelet Volume 8.2 fl (7.4-10.4); Monocytes # 0.6 K/mm3 (0.1-1.0); Monocytes % 6.8 % (1.7-9.3); Neutrophils # 6.1 K/mm3 (1.8-7.8); Platelet Count 383 K/mm3 (142-424); Potassium 3.8 mmoL/L (3.5-5.1); Red Blood Count 4.21 M/mm3 (4.20-5.40); Red Cell Distribution Width 13.8 % (11.5-17.5); Sodium 135 mmol/L (136-145); White Blood Count 8.8 K/mm3 (4.8-10.8)
[2022-01-29 14:19] LABS: Alanine Aminotransferase 18 U/L (12-78); Albumin Level 3.9 g/dl (3.5-5.0); Albumin/Globulin Ratio 1.3 (1.1-1.8); Alkaline Phosphatase 85 U/L (38-126); Anion Gap 12.8 mEq/L (5-15); Aspartate Amino Transferase 20 U/L (14-36); Bilirubin,Total 0.8 mg/dl (0.2-1.3); Blood Urea Nitrogen 15 mg/dl (7-17); Calcium 8.9 mg/dl (8.4-10.2); Carbon Dioxide 25 mmol/L (22.0-30.0); Creatinine Clearance Estimated 67 mL/min (50-200); Estimated Glomerular Filt Rate 71 ml/min (>60); GFR (African American) 86 ML/MIN (>60); Glucose 248 mg/dl (74-100); Total Protein,Serum 6.9 g/dl (6.3-8.2)
[2022-01-29 14:31] LABS: Troponin I 0.08 ng/ml (0.00-0.034)
--- NOTE | 2022-01-29 14:36 | PC.NURSE ---
ED MD at
--- NOTE | 2022-01-29 14:46 | PC.NURSE ---
ARCHANA DE LA CRUZ speaking with Dr. Hpoe on phone at this time
--- NOTE | 2022-01-29 14:49 | CA_ITS ---
APPROVED REPORT EXAM: Comprehensive 2D, Doppler, and color-flow Echocardiogram Manager Project Management: Jami Padron, IRIS, RVS Ht: 5 ft 2 in Wt: 189lbs BSA: 1.87 BP: 138/90 mmHg Indications: Back pain (compression FX s/p fall), Abn EKG, Elevated troponin, CAD-Hx old MT, DM, HTN Echo Enhancing Agent Comments: Pt unable to be positioned, scanned supine RLD, intolerant to scanning pressure. 2D Dimensions IVSd 0.96 cm F: 0.6-1.0 LVEF (Visual) 58.30 % PWd 1.12 cm F: 0.6 - 1.0 LA Volume 19.20 mL LVDd 4.38 cm F: 3.9 - 5.3 LA Volume Index 10.32 mL/m2 (M/F) 16-34 LVDs 3.04 cm F: 2.2 - 3.5 Aortic Root 0.00 cm F: 2.7 - 3.3 Left Atrium 2.86 cm F: 2.7 - 3.8 LVOT 2.04 cm (M/F) 1.5-2.5 Ascending Aorta 2.95 cm F: 2.3 - 3.1 M-Mode Dimensions RVDd 1.68 cm (0.9-2.6) LA Diam 3.39 cm (1.9-4.0) LVDd 4.25 cm (3.5-5.7) Ao Diam 2.82 cm (2.0-3.7) LVDs 3.32 cm (3.5-5.7) IVSd 1.04 cm (0.6-1.1) PWd 0.94 cm (0.6-1.1) EF (Teich) 50.00% EPSs 0.46 cm FS 30.00% EDV (Teich) 76.80 mL TAPSE 0.93 (<1.7) ESV (Teich) 44.80 mL LV Diastology E Decel Time 113.00 (160-240 msec) E/A Ratio 0.71 MED E' 4.30 (< 7 cm/sec) MED A' 10.50 cm/s E'/MED E' Ratio 17.00 (>14) LAT E' 5.20 (<10 cm/sec) LAT A' 7.80 cm/s E/LAT E' Ratio 14.06 (>14) Aortic Valve LVOT Max 85.00 (70-110 cm/s) LVOT VTI 14.54 cm AoV Peak Kimo. 136.00 (50-130 cm/s) AO Peak GR. 7.40 mmHg AO Mean GR. 3.70 (<5 mmHg) AO VTI 20.21 (18-25 cm) MU (VTI) 2.35 (2.5-4.5 cm2) Mitral Valve MV A Velocity 103.00 (40-130 cm/s) E/A Ratio 0.71 MV Decel. Time 113.00 (160-240 ms) MV PHT 33.00 ms Pulmonary Valve PV Peak Velocity 78.00 (50-150 cm/s) Tricuspid Valve TR P. Velocity 119.00 cm/s RAP Estimate 10.00 mmHg RVSP 15.60 mmHg Left Ventricle Left atrium is mildly enlarged, left ventricle is normal size, mild concentric left ventricular hypertrophy, visually estimated ejection fraction 55% with no regional wall motion abnormality, grade 1 diastolic dysfunction seen with tissue Doppler evidence of raise left atrial pressure. Right Ventricle Right atrium and right ventricular mildly enlarged with normal contractility. Aortic Valve Aortic valve is thickened and calcified without Doppler evidence of aortic stenosis or aortic insufficiency. Mitral Valve Mitral valve leaflets are minimally thickened, there is mild mitral regurgitation. Tricuspid Valve Tricuspid valve is grossly normal, there is mild tricuspid regurgitation, tricuspid regurgitation jet velocity is inadequate for calculation of the right ventricular systolic pressure. Pulmonic Valve Pulmonic valve is poorly visualized. Great Vessels Aortic root is normal size. Inferior vena cava is poorly visualized. Pericardium No significant pericardial effusion noted. Conclusion 1. Mildly enlarged left atrium, normal left ventricular size, mild concentric left ventricular hypertrophy, estimated ejection fraction 55% with no regional wall motion abnormality, grade 1 diastolic dysfunction seen with tissue Doppler evidence of raise left atrial pressure. 2. Mildly enlarged right ventricle with normal contractility. 3. Mild mitral and tricuspid regurgitation. 4. No significant pericardial effusion 5. Inferior vena cava is poorly visualized. Electronically signed by : Vish Conway MD 01/29/2022 18:57:56
--- NOTE | 2022-01-29 14:50 | PC.NURSE ---
patient on bedpan at this time
--- NOTE | 2022-01-29 14:52 | PC.NURSE ---
notified [facility] lab staff of echo order, spoke with layla
--- NOTE | 2022-01-29 15:02 | PC.NURSE ---
ECHO at BS to do exam
--- NOTE | 2022-01-29 15:03 | PC.NURSE ---
patient off of bedpan with assist of student nurse; she was unable to go
[2022-01-29 15:06] LABS: Coronavirus 19, PCR Not Detected (NotDetected); Influenza A, PCR Not Detected (NotDetected); Influenza B, PCR Not Detected (NotDetected)
--- NOTE | 2022-01-29 15:19 | PC.NURSE ---
medication list obtained from staff at [facility]
--- NOTE | 2022-01-29 15:31 | PC.NURSE ---
ECHO complete; Family at BS
--- NOTE | 2022-01-29 15:54 | PC.NURSE ---
Notified 2nd floor of patients negative covid test
--- NOTE | 2022-01-29 15:56 | PC.NURSE ---
patient placed on 2 liters of o2 per her sats dropping to 83% on RA.
--- NOTE | 2022-01-29 16:16 | PC.NURSE ---
Pt arrived to the floor at this time
--- NOTE | 2022-01-29 16:19 | PC.NURSE ---
Pt to floor at 1615 approx
[2022-01-29 16:55] LABS: POC Glucose,Bedside 268 (70-110)
[2022-01-29 18:05] LABS: Troponin I 0.08 ng/ml (0.00-0.034)
[2022-01-29 20:40] LABS: POC Glucose,Bedside 166 (70-110)
[2022-01-29 21:02] LABS: Troponin I 0.08 ng/ml (0.00-0.034)
[2022-01-30] VITALS (8 sets, daily range): BP systolic 100–140; BP diastolic 66–81; PULSE 80–113; RESP 10–22; TEMP 36.5–36.9; O2SAT 94–96; BMI 32.4
--- NOTE | 2022-01-30 03:55 | PC.NURSE ---
NO ACUTE CHANGES FROM PREVIOUS ASSESSMENT. PT HAS RESTED WELL THIS SHIFT WITH ADEQUATE RELIEF FROM PRN PAIN MEDICATION. VS REMAIN STABLE. WILL CONTINUE TO MONITOR.
[2022-01-30 06:10] LABS: POC Glucose,Bedside 187 (70-110)
--- NOTE | 2022-01-30 07:19 | P.CONPHA_ITS ---
[facility] Pharmacy VTE Monitoring - Patient Demographics Admission date: 01/29/22 Report Date: 01/30/22 Time: 07:19 Allergies/Adverse Reactions: Patient Allergies pregabalin [From Lyrica] Adverse Reaction (Mild, Verified 12/01/19 10:21) LIPS SWELLED Height: 1.57 m Weight: 79.946 kg Patient Problems: Current Active Problems Compression fracture of T11 vertebra (Acute) Elevated troponin (Acute) Abnormal EKG (Acute) - VTE Risk Labs: VTE Related Lab Results Hgb 13.9 g/dL (12.2-16.2) 01/29/22 13:56 Hct 42.0 % (37.0-47.0) 01/29/22 13:56 Plt Count 383 K/mm3 (142-424) 01/29/22 13:56 BUN 15 mg/dl (7-17) 01/29/22 13:56 Creatinine 0.80 mg/dl (0.52-1.04) 01/29/22 13:56 Estimated Creat Clear 67 mL/min (50-200) 01/29/22 13:56 - Prophylaxis VTE Prophylaxis Ordered?: Yes Types of VTE Prophylaxis: TEDS Knee High Location of Applied Device: Bilateral Lower Extremeties
--- NOTE | 2022-01-30 07:51 | HMH.PHAINT ---
Home medication list was verified using [employer] claim history and the medication list from discharge a few days ago.
--- NOTE | 2022-01-30 08:43 | CA_ITS ---
FINAL REPORT TECHNIQUE: Color Doppler, duplex Doppler and arzate scale sonography of the bilateral neck arterial vasculature was performed. Velocities were measured in the carotid arteries. Stenosis evaluation based on the validated velocity criteria. CLINICAL HISTORY: MS changes FINDINGS: The peak systolic velocity of the right common carotid artery is 63 cm/s. The peak systolic velocity of the right internal carotid artery is 83 cm/s and end diastolic velocity 20 cm/s. The ICA/CCA ratio is 1.33. A mild amount of plaque is present. The right external carotid artery is patent. The right vertebral artery is patent with antegrade flow. The peak systolic velocity of the left common carotid artery is 102 cm/s. The peak systolic velocity of the left internal carotid artery is 95 cm/s and end diastolic velocity 26 cm/s. The ICA/CCA ratio is 0.93. A is mild amount of plaque is present. The left external carotid artery is patent.The left vertebral artery is patent with antegrade flow. IMPRESSION: Less than 50% bilateral carotid stenosis. Bilateral patent vertebral arteries with antegrade flow. Reviewed, Interpreted and Dictated by Del De Leon III, MD Transcribed by Roseanne Coffey Authenticated by Del De Leon III, MD on 01/30/2022 02:25:35 PM [facility]
--- NOTE | 2022-01-30 08:45 | HMH.HP ---
*Admission Date: 01/29/22 *Chief complaint: Lethargy/immobility/fall with back pain *History of present illness: 71-year-old white female who is afflicted with severe visual impairment and diabetes, who also has frequent urinary tract infections and has been diagnosed with mild cognitive impairment and is on memantine as well as medications for anxiety and depression at home. She also takes chronic gabapentin. She has been in her normal state of impaired health at home with her in [place], [place] but 3 days ago she had a fall and hurt her back. She was seen in the emergency department here, extensive imaging and work-up was done which was negative except for a possible endplate fracture on T11. No displacement was noted, she was sent home with follow-up arranged. She came back to the emergency department yesterday because her stated that she could not get out of bed. In the ER chest x-ray was negative and labs were essentially negative except for previously noted hyperglycemia. Her troponin was slightly elevated at 0.08, compared to 0.02 on her previous ER visit but no changes were noted over the next lab draws. She was admitted to hospital for further evaluation and I examined her on the floor this morning. [facility] History I have reviewed the patient's past medical history: Yes Medical History: Reports:: Coronary Artery Disease, Depression, Diabetes Mellitus Type 2, Gastroesophageal Reflux Disease(GERD), Hyperlipidemia, Hypertension, Myocardial Infarction Denies:: Cancer, Diabetes Mellitus Type 1, Internal Pacemaker, MRSA, Seizures *Have you ever received a pneumonia vaccine?: Yes *Have you received a flu vaccine this season?: Yes Other Medical History: Reports: Arthritis Laterality Cases: Right: Arthroscopy Knee, Total Hip Replacement Other Surgeries: Yes: Cardiac Catheterization, Cholecystectomy, Coronary Stent, EGD, Other. No: Pacemaker Amputation: No Fractures: Yes (x9) - *Social History Smoking Status: Former smoker Tobacco Type: cigarettes Alcohol Intake: never Substance Use Type: denies use *Occupational Status:: retired Housing: house Household Members: spouse *Travel in the last 8 weeks: None - Psychiatric History Pschychiatric History:: Reports:: Depression Family Hx:: Unable to obtain Review of Systems - Review of Systems Review of systems:: pertinent systems reviewed and negative unless documented below - *Neurologic Denies headache(s), Denies numbness, Denies weakness Meds Home Medications Medication Instructions Recorded Confirmed Type Aspirin [Aspirin 81mg EC Tab] 81 mg PO DAILY 03/19/18 01/29/22 History Memantine HCl [Namenda XR 28MG] 28 mg PO DAILY 03/19/18 01/29/22 History Metformin HCl 1,000 mg PO BID 03/19/18 01/29/22 History Omeprazole [Omeprazole 20mg 20 mg PO DAILY 03/19/18 01/29/22 History Capsule] Buspirone HCl [Buspar 10mg 10 mg PO BID 12/30/21 01/30/22 History tablet] Venlafaxine HCl 75 mg PO BID 12/30/21 01/29/22 History Insulin Detemir [Levemir 15 units SQ HS 01/29/22 01/29/22 History 100units/mL 3mL flexpen] Vibegron [Gemtesa] 75 mg PO DAILY 01/29/22 01/29/22 History Gabapentin [Gabapentin 100mg Cap] 100 mg PO BID 01/30/22 01/30/22 History Insulin Aspart [Novolog Flexpen] 15 units SQ DIRECTED 01/30/22 01/30/22 History Loratadine [Allergy Relief] 10 mg PO DAILY 01/30/22 01/30/22 History nitrofurantoin macrocrystaL 50 mg PO DAILY 01/30/22 01/30/22 History [Nitrofurantoin] Allergies Allergy/AdvReac Type Severity Reaction Status Date / Time pregabalin [From Lyrica] AdvReac Mild LIPS Verified 12/01/19 10:21 SWELLED Exam Vital signs and Labs for Last 24 Hours: Temp Pulse Resp BP Pulse Ox 97.7 F 102 H 16 111/70 96 01/30/22 04:00 01/30/22 04:00 01/30/22 06:16 01/30/22 04:00 01/30/22 04:00 Laboratory Results - last 24 hr 01/29/22 13:56: WBC 8.8, RBC 4.21, Hgb 13.9, Hct 42.0, MCV 99.8 H, MCH 32.9 H, MCHC 33.0
--- NOTE | 2022-01-30 08:58 | MR_ITS ---
FINAL REPORT CLINICAL HISTORY: MS CHANGES, CONFUSION COMPARISON: 01/29/2016 FINDINGS: Multiplanar MR imaging of the brain was performed without contrast. There is age-appropriate atrophy. There is widespread abnormal T2 signal in the periventricular white matter, likely represents demyelination which has progressed significantly since the previous exam. There is a 5 mm focus of restricted diffusion in left parietal white matter, may represent a small acute infarct or acute demyelination. There is no evidence of intracranial hemorrhage or mass. The ventricular size is normal. There is no evidence of shift of the midline structures. No abnormal extra-axial fluid collection is identified. The posterior fossa and brainstem have an unremarkable appearance. Normal major vessel vascular flow voids are seen. IMPRESSION: Worsening signal abnormalities in the periventricular white matter, presumably worsening demyelination. Small acute infarct versus acute demyelination. Reviewed, Interpreted and Dictated by Del De Leon III, MD Transcribed by Joaquina Delcid Authenticated by Del De Leon III, MD on 01/30/2022 12:55:[address] [facility]
[2022-01-30 08:59] LABS: Ammonia < 9 umol/L (9-30)
[2022-01-30 09:05] LABS: Creatine Kinase 30 U/L (30-135)
[2022-01-30 09:18] LABS: Free Thyroxine Index 3.6 ug/dL (5.93-13.13); T4 (Thyroxine) 9.9 ug/dl (5.53-11.0); Triiodothryronine (T3) Uptake 36 % (23.5-40.5)
[2022-01-30 09:32] LABS: Thyroid Stimulating Hormone 2.12 uIU/mL (0.465-4.68)
[2022-01-30 09:50] LABS: Vitamin B12 233 pg/mL (239-931)
--- NOTE | 2022-01-30 10:58 | HMH.OTEV ---
OT Inpatient Evaluation Rehab OT IP Evaluation Start: 01/30/22 08:21 Freq: ONCE Status: Complete Protocol: Document 01/30/22 10:50 VU (Rec: 01/30/22 10:57 VU [id number]) Rehab OT IP Assessment Subjective History 71-year-old white female who is afflicted with severe visual impairment and diabetes , who also has frequent urinary tract infections and has been diagnosed with mild cognitive impairment and is on memantine as well as medications for anxiety and depression at home. She also takes chronic gabapentin. She has been in her normal state of impaired health at home with her in [place], [place] but 3 days ago she had a fall and hurt her back. She was seen in the emergency department here, extensive imaging and work-up was done which was negative except for a possible endplate fracture on T11. No displacement was noted, she was sent home with follow-up arranged. She came back to the emergency department yesterday because her stated that she could not get out of bed. In the ER chest x-ray was negative and labs were essentially negative except for previously noted hyperglycemia. Her troponin was slightly elevated at 0.08, compared to 0.02 on her previous ER visit but no changes were noted over the next lab draws. She was admitted to hospital for further evaluation and I examined her on the floor this morning. [facility] History I have reviewed the patient's past medical history: Yes Medical History: Reports:: Coronary
--- NOTE | 2022-01-30 11:29 | HMH.PTEV ---
Physical Therapy Evaluation Rehab PT IP Evaluation Start: 01/30/22 08:21 Freq: ONCE Status: Active Protocol: Document 01/30/22 10:55 PWOG (Rec: 01/30/22 11:28 [id number]) Subjective/History History History This is the initial IP PT evaluation for Key Coffey. Pt is a 71 y/o female admitted to [facility] thru ED. Pt fell earlier in the week and was in severe unrelenting pain. Pt was found to have end compression fx of lower thoracic vertebrae and was sent home. Yesterday she was brought to the ED by EMS because she could not get out of bed her pain was so bad Subjective Subjective Pt c/o 08/05 pain w/ mvmnt - pt slightly confused - difficulty answering questions - unsure of pt's prior level of function due to confusion - pt states she has cane and walker but has not walked in a year using w/c at home - pt states assist with transfers but then stated she transferred in the bathroom by herself. Rehab PT IP Eval Objective Appearance Patient Behavior Sedated,Fearful,Confused Patient Orientation Place,Name,Year Difficulty following instructions mild Speech Pattern Slurred,Soft-Spoken,Difficulty Finding Words Ambulation Patient Able to Ambulate No Balance Ability to Arise Unable Sitting Balance Leans or slides in chair Dynamic Sitting Balance Ability Poor Transfers Bed Transfer Ability Maximum x 2 (75% assist) Rehab PT IP prob,goals,plan Problems Date of Evaluation: 01/30/22 PT IP Problems Bed Mobility,Transfers,Gait, Balance,Self care,Safety Rehab Potential Rehab Potential Poor Equipment Needs Assistive Devices Rolling / Wheeled Walker, Wheelchair Plan PT Intervention Plan Bed Mobility,Transfers,Gait, Safety,Therapeutic Exercise PT Plan Frequency BID Duration LOS Discharge Goals Bed Transfer Ability Maximum x 2 (75% assist) Sit to Stand Chair Tr
--- NOTE | 2022-01-30 11:42 | SW/DCPLANNER ---
Addendum entered by Albania Laughlin 01/31/22 10:16: Deisy Lucero has informed me this patient has been approved for today but will need to wait till this afternoon. I have informed Dr Hope and discharge information has been faxed. I have also updated patient's nurse (Analia) and I will contact patient's this AM. Per Deisy patient will NOT require an additional COVID swab prior to discharge. Addendum entered by Albania Laughlin 01/30/22 15:45: Deisy evaluated this patient and started precert for insurance. I will continue to follow up with: patient/family, and Ronn Lucero. Addendum entered by Albania Laughlin 01/30/22 13:21: Deisy Lucero will be on campus this afternoon to evaluate this patient this afternoon. Original Note: PT/OT evaluation was completed on this patient this AM: placement has been recommended. I spoke with patient's this AM regarding placement: concurs with the plan of placement and has suggested Ronn Lucero. Deisy Lucero has stated that she does have female beds available. Patient information has been faxed to Deisy and I will follow up once information is reviewed. Patient was down for an MRI when I spoke with : I will follow up with her regarding discharge plans this afternoon. Dr Hope has stated that patient will be ready for discharge within the next day or two.
--- NOTE | 2022-01-30 14:32 | PC.NURSE ---
Called and requested that Dr. Hope calls me back
--- NOTE | 2022-01-30 14:37 | PC.NURSE ---
spoke with patient and family in room. no concerns voiced. patient up to chair. no needs at this time. no questions about meds or plan of care at this time
--- NOTE | 2022-01-30 14:39 | PC.NURSE ---
Spoke with Dr. Hope about pt not urinating since midnight last night. He gave me a verbal order over the phone to place a FC and if she has more than 100mls to keep the FC in place. She ended up having 450mls of out put so we keep the FC in place. We sent a urine sample to lab for testing.
[2022-01-30 15:26] LABS: Microscopic, Urine URINE MICROSCOPIC (MICROSCOPIC)
[2022-01-30 15:30] LABS: Blood, Urine TRACE-I (Negative); Glucose,Urine (UA) TRACE (Negative); Ketones,Urine 1+ (Negative); Leukocyte Esterase,Urine 2+ (Negative); Nitrate,Urine Negative (Negative); Protein,Urine TRACE (Negative); Specific Gravity, Urine >= 1.030 (1.005-1.030)
[2022-01-30 15:51] LABS: Appearance,Urine CLOUDY (Clear); Bilirubin,Urine 2+ (Negative); Color,Urine ORANGE (Yellow)
[2022-01-30 15:52] LABS: Bacteria,Urine 1+ /lpf; RBC,Urine 50-100 #/hpf (0-3); Squamous Epithelial Cell,Urine Occasional #/hpf (0-5); WBC,Urine TNTC #/hpf (0-3); Yeast,Urine 3+ /lpf
[2022-01-30 17:17] LABS: POC Glucose,Bedside 156 (70-110)
[2022-01-30 17:17] LABS: POC Glucose,Bedside 187 (70-110)
[2022-01-30 21:30] LABS: POC Glucose,Bedside 108 (70-110)
[2022-01-31] VITALS: BP 155/78; PULSE 100; PULSE 97; RESP 20; TEMP 36.6; O2SAT 95
[2022-01-31 04:00] VITALS: BP 160/73; PULSE 90; PULSE 94; RESP 16; TEMP 36.7; O2SAT 96
[2022-01-31 05:00] VITALS: BMI 33.6
[2022-01-31 06:13] LABS: POC Glucose,Bedside 131 (70-110)
[2022-01-31 07:25] LABS: Basophils # 0.1 K/mm3 (0-0.2); Basophils % 0.9 % (0.1-2.0); Eosinophils # 0.3 K/mm3 (0.0-0.4); Eosinophils % 5.2 % (0.1-12.0); Hematocrit 33.7 % (37.0-47.0); Hemoglobin 11.1 g/dL (12.2-16.2); Lymphocytes # 1.8 K/mm3 (0.7-4.5); Lymphocytes % 28.1 % (10-50); Mean Corpuscular Hemoglobin 33.1 pg (27.0-31.2); Mean Corpuscular Volume 100.1 fl (81-99); Mean Platelet Volume 7.4 fl (7.4-10.4); Monocytes # 0.5 K/mm3 (0.1-1.0); Neutrophils # 3.8 K/mm3 (1.8-7.8); Neutrophils % 58.7 % (37.0-80.0); Platelet Count 319 K/mm3 (142-424); Red Blood Count 3.37 M/mm3 (4.20-5.40); Red Cell Distribution Width 13.7 % (11.5-17.5); White Blood Count 6.4 K/mm3 (4.8-10.8)
--- NOTE | 2022-01-31 07:55 | HMH.ACPN2 ---
Internal Medicine - PN: Subj *Date: 01/31/22 *Time: 07:55 Interval history: Patient had some waxing and waning consciousness but is much more alert this morning. Urinalysis last night was returned showing lots of inflammatory and infectious features and ceftriaxone was started. Exam Vital signs and Labs for Last 24 Hours: Temp Pulse Resp BP Pulse Ox 98.0 F 94 H 16 160/73 H 96 01/31/22 04:00 01/31/22 04:00 01/31/22 04:00 01/31/22 04:00 01/31/22 04:00 Laboratory Results - last 24 hr 01/30/22 08:40: Total Creatine Kinase 30 01/30/22 08:40: Ammonia < 9 L 01/30/22 08:40: TSH 2.12, Free T4 Index 3.6 L, Thyroxine (T4) 9.9, T3 Uptake 36 01/30/22 08:40: Vitamin B12 233 L 01/30/22 12:19: POC Glucose 187 H 01/30/22 15:15: Urine Color [place], Urine Appearance Cloudy, Urine pH 5.0, Ur Specific [place] >= 1.030, Urine Protein Trace, Urine Glucose (UA) Trace, Urine Ketones 1+, Urine Blood Trace-i, Urine Nitrate Negative, Urine Bilirubin 2+ A, Urine Urobilinogen 1.0, Ur Leukocyte Esterase 2+ A, Urine RBC 50-100, Urine WBC Tntc, Ur Squamous Epith Cells Occasional, Urine Bacteria 1+, Urine Yeast 3+ 01/30/22 16:32: POC Glucose 156 H 01/30/22 21:21: POC Glucose 108 01/31/22 06:06: POC Glucose 131 H 01/31/22 07:05: WBC 6.4 D, RBC 3.37 L, Hgb 11.1 L, Hct 33.7 L, MCV 100.1 H, MCH 33.1 H, MCHC 33.0, RDW 13.7, Plt Count 319, MPV 7.4, Neut % (Auto) 58.7, Lymph % (Auto) 28.1, [place] % (Auto) 7.0, Eos % (Auto) 5.2, Baso % (Auto) 0.9, Neut # (Auto) 3.8, Lymph # (Auto) 1.8, [place] # (Auto) 0.5, Eos # (Auto) 0.3, Baso # (Auto) 0.1 I & O for Last 24 hours: Intake & Output 01/28/22 01/29/22 01/30/22 01/31/22 11:59 11:59 11:59 11:59 Intake Total 1053 / 1053 1038 / 1038 Output Total 950 / 950 Balance 1052 / 1052 88 / 88 Weight 176 lb 3.8 oz 183 lb Narrative: Awake, alert. Oriented x2. Still fuzzy about the date. Following commands. More talkative than yesterday. Heart rate regular. Lungs clear. Abdomen soft. No extremity edema. Very weak globally. Assessment and Plan (1) Mental status alteration Status: Acute Category: Medical Code(s): R41.82 - Altered mental status, unspecified (2) Lumbar contusion Status: Acute Category: Medical Code(s): S30.0XXA - Contusion of lower back and pelvis, initial encounter (3) Near syncope Status: Acute Category: Medical Code(s): R55 - Syncope and collapse (4) Obesity (BMI 30-39.9) Status: Acute Category: Medical Code(s): E66.9 - Obesity, unspecified (5) Diabetes mellitus Status: Chronic Category: Medical Code(s): E11.9 - Type 2 diabetes mellitus without complications (6) Urinary tract infection Status: Acute Category: Medical Code(s): N39.0 - Urinary tract infection, site not specified - Assessment and plan all Dx Assessment and Plan for all problems:: Start ceftriaxone for UTI. PT/OT evaluation has indicated benefit from skilled rehab referral and this will be initiated. Ongoing depression. Increase venlafaxine to 150 twice daily of the immediate release form. Continue insulin for diabetes as indicated.
[2022-01-31 08:00] VITALS: BP 137/84; PULSE 100; PULSE 91; RESP 16; TEMP 36.7; O2SAT 94
[2022-01-31 08:03] LABS: Chloride 105 mmol/L (98-107)
[2022-01-31 08:04] LABS: Potassium 3.7 mmoL/L (3.5-5.1); Sodium 135 mmol/L (136-145)
[2022-01-31 08:07] LABS: Anion Gap 8.7 mEq/L (5-15); Blood Urea Nitrogen 24 mg/dl (7-17); Calcium 7.7 mg/dl (8.4-10.2); Carbon Dioxide 25 mmol/L (22.0-30.0); Creatinine Clearance Estimated 56 mL/min (50-200); Estimated Glomerular Filt Rate 44 ml/min (>60); GFR (African American) 54 ML/MIN (>60); Glucose 130 mg/dl (74-100)
--- NOTE | 2022-01-31 10:03 | HMH.DCSUM ---
General - General Admission date:: 01/29/22 Discharge date: 01/31/22 HPI HPI: 71-year-old white female who is afflicted with severe visual impairment and diabetes, who also has frequent urinary tract infections and has been diagnosed with mild cognitive impairment and is on memantine as well as medications for anxiety and depression at home. She also takes chronic gabapentin. She has been in her normal state of impaired health at home with her in [place], [place] but 3 days ago she had a fall and hurt her back. She was seen in the emergency department here, extensive imaging and work-up was done which was negative except for a possible endplate fracture on T11. No displacement was noted, she was sent home with follow-up arranged. She came back to the emergency department yesterday because her stated that she could not get out of bed. In the ER chest x-ray was negative and labs were essentially negative except for previously noted hyperglycemia. Her troponin was slightly elevated at 0.08, compared to 0.02 on her previous ER visit but no changes were noted over the next lab draws. She was admitted to hospital for further evaluation and I examined her on the floor this morning. Hospital Course Hospital Course: Patient was admitted. No metabolic cause of her worsening encephalopathy was found, MRI showed age-related demyelination issues but really nothing specific. Patient had some waxing and waning of her neurologic status but really maintained at her baseline throughout her hospital stay. She was cathed for urine specimen which revealed evidence of leukourea and nitrates consistent with a cystitis/UTI. She was given a dose of ceftriaxone yesterday and today and cultures are pending on this organism. She was accepted by the [facility] today for PT and OT. I think this will be a great thing for her. We will be able to follow her there and do further outpatient work-up if warranted. I talked with her about her depression which I think is part of her dysthymia/anhedonia/poverty of movement issues and we will increase her venlafaxine to 100 twice daily. Of note her creatinine bumped slightly this morning, and this will need to be followed as an outpatient. Plan be to transfer to [place] today, she will need PT/OT/dietary evaluation. Medications will be as noted on the discharge form. We will place her on Omnicef 300 twice daily for 5 days to complete treatment for UTI, obviously change as cultures return. We will follow her on a halfway rounds. Objective Vital signs: Temp Pulse Resp BP Pulse Ox 98.0 F 91 H 16 137/84 94 L 01/31/22 08:00 01/31/22 08:00 01/31/22 08:00 01/31/22 08:00 01/31/22 08:00 morbidly obese, chronically ill appearing - *Routine HEENT Exam Head: Present: normocephalic Eye: Present: EOMI, PERRL ENT: Present: mucous membranes moist - *Routine Neck Exam Present: supple - *Routine Respiratory Exam Present: CTA bilaterally - *Routine Cardiovascular Exam Present: RRR - *Routine Abdominal Exam Present: soft, normoactive bowel sounds. Absent: tenderness - *Routine Extremities Exam Absent: cyanosis, clubbing, edema - *Routine Skin Exam Present: warm. Absent: rash - *Routine Neurological Exam Present: alert Oriented x2. No focal cranial nerve deficits but visual loss is noted per patient's report. Globally weak. No focal peripheral deficits. - Detailed Eye Exam Eyelids: Bilateral normal inspection Results Labs on day of discharge: Labs from last 24 hours 01/31/22 01/31/22 01/31/22 07:05 07:05 06:06 WBC 6.4 D RBC 3.37 L Hgb 11.1 L Hct 33.7 L MCV 100.1 H MCH 33.1 H MCHC 33.0 RDW 13.7 Plt Count 319 MPV 7.4 Neut % (Auto) 58.7 Lymph % (Auto) 28.1 [place] % (Auto) 7.0 Eos % (Auto) 5.2 Baso % (Auto) 0.9 Neut # (Auto) 3.8 Lymph # (Auto) 1.8 [place] # (Aut
[2022-01-31 11:57] VITALS: BP 136/74; PULSE 97; RESP 18; TEMP 36.8; O2SAT 88
[2022-01-31 12:00] VITALS: PULSE 100
[2022-01-31 19:57] LABS: POC Glucose,Bedside 231 (70-110)
== END 2022-01-31 15:15 ==
LOC: ER 13:51 → 2ND 15:01
PROVIDERS: Admitting Provider Internal Medicine Adolescent Medicine; Emergency Provider Emergency Medicine; PCP Internal Medicine Adolescent Medicine; Visit Provider Internal Medicine Adolescent Medicine
DX: S22.080A Wedge compression fracture of T11-T12 vertebra, initial encounter for closed fracture (principal); E11.9 Type 2 diabetes mellitus without complications; Z79.4 Long term (current) use of insulin; I25.10 Atherosclerotic heart disease of native coronary artery without angina pectoris; Z95.5 Presence of coronary angioplasty implant and graft; Z79.899 Other long term (current) drug therapy; I10 Essential (primary) hypertension; I25.2 Old myocardial infarction; E78.5 Hyperlipidemia, unspecified; Z20.822 Contact with and (suspected) exposure to COVID-19; R41.82 Altered mental status, unspecified; R26.81 Unsteadiness on feet; W01.0XXA Fall on same level from slipping, tripping and stumbling without subsequent striking against object, initial encounter; Y92.019 Unspecified place in single-family (private) house as the place of occurrence of the external cause
CPT/HCPCS: G0378; 36415; 70551; 71045; 80048; 80053; 81001; 82140; 82550; 82607; 82962; 84436; 84443; 84479; 84484; 85025; 87086; 93005; 93306; 93880; 96365; 96375; 97163; 97165; 97530; 99285; C9803; J0696; J2405; U0003; U0005

== ENCOUNTER → 2022-02-02 01:06 | Outpatient (CLI) | payer MEDICARE, SELFPAY ==
[2022-02-02 01:30] LABS: Basophils # 0.1 K/mm3 (0-0.2); Basophils % 2.4 % (0.1-2.0); Eosinophils # 0.2 K/mm3 (0.0-0.4); Hematocrit 32.9 % (37.0-47.0); Lymphocytes # 2.1 K/mm3 (0.7-4.5); Lymphocytes % 34.6 % (10-50); Mean Corpuscular HGB Conc 33.4 g/dL (31.8-35.4); Mean Corpuscular Hemoglobin 33.1 pg (27.0-31.2); Mean Corpuscular Volume 99.4 fl (81-99); Mean Platelet Volume 8.7 fl (7.4-10.4); Monocytes # 0.5 K/mm3 (0.1-1.0); Monocytes % 8.7 % (1.7-9.3); Neutrophils # 3.1 K/mm3 (1.8-7.8); Neutrophils % 50.4 % (37.0-80.0); Platelet Count 278 K/mm3 (142-424); Red Blood Count 3.31 M/mm3 (4.20-5.40); Red Cell Distribution Width 13.9 % (11.5-17.5); White Blood Count 6.1 K/mm3 (4.8-10.8)
[2022-02-02 02:14] LABS: Blood Urea Nitrogen 12 mg/dl (7-17); Calcium 8.7 mg/dl (8.4-10.2); Carbon Dioxide 25 mmol/L (22.0-30.0); Chloride 103 mmol/L (98-107); Estimated Glomerular Filt Rate 82 ml/min (>60); GFR (African American) 100 ML/MIN (>60); Glucose 149 mg/dl (74-100); Sodium 135 mmol/L (136-145)
== END ==
PROVIDERS: Visit Provider Internal Medicine Adolescent Medicine
DX: I25.10 Atherosclerotic heart disease of native coronary artery without angina pectoris (principal); I10 Essential (primary) hypertension; Z79.899 Other long term (current) drug therapy
CPT/HCPCS: 80048; 85025

== ENCOUNTER → 2022-02-07 11:59 | Outpatient (CLI) | payer MEDICARE, SELFPAY | PROVIDERS: PCP Internal Medicine Adolescent Medicine; Referring Provider Nurse Practitioner Family; Visit Provider Internal Medicine Adolescent Medicine | DX: H53.9 Unspecified visual disturbance (principal) | CPT/HCPCS: 95819 ==

== ENCOUNTER → 2022-03-18 13:48 | Outpatient (POV) | payer MEDICARE, SELFPAY ==
[2022-03-18 13:56] VITALS: BP 132/84; PULSE 102; RESP 18; TEMP 36.8; O2SAT 94; BMI 31.8
--- NOTE | 2022-03-18 15:54 | HMH.PMCON ---
Assessment and Plan (1) Myofascial pain syndrome of thoracic spine Status: Acute Category: Medical Code(s): M79.18 - Myalgia, other site (2) Compression fracture of T11 vertebra Status: Acute Qualifiers: Encounter type: initial encounter Qualified Code(s): S22.080A - Wedge compression fracture of T11-T12 vertebra, initial encounter for closed fracture Category: Medical Code(s): S22.080A - Wedge compression fracture of T11-T12 vertebra, initial encounter for closed fracture - Assessment and plan all Dx Assessment and Plan for all problems:: IMAGING: PROCEDURE INFORMATION: Exam: CT Thoracic Spine Without Contrast Exam date and time: 01/25/2022 10:17 PM Age: 71 years old Clinical indication: Injury or trauma; Fall; Blunt trauma (contusions or hematomas) TECHNIQUE: Imaging protocol: Computed tomography images of the thoracic spine without contrast. Radiation optimization: All CT scans at this facility use at least one of these dose optimization techniques: automated exposure control; mA and/or kV adjustment per patient size (includes targeted exams where dose is matched to clinical indication); or iterative reconstruction. COMPARISON: CT CERVICAL SPINE WO CON 01/25/2022 10:13 PM FINDINGS: Vertebrae: Subtle superior endplate irregularity involving T11. Moderate multilevel degenerative changes. Soft tissues: Unremarkable. IMPRESSION: Subtle superior endplate irregularity involving T11 which is of unknown chronicity. Correlation with point tenderness is recommended. : Patient has been having worsening mid back pain since she fell about 2 months ago. She has a close fracture of T11 thoracic vertebra. At her exam, patient is nontender to palpation along the cervical, thoracic, and lumbar spine. However, patient is tender to palpation around the right thoracic paraspinous. We will schedule the patient for a trigger point injection around the right thoracic paraspinous. If the patient does not get significant relief from this injection, we will consider scheduling for thoracic epidural steroid injection. Patient has been instructed to contact the clinic with any concerns before the next appointment. Dr. Foster has reviewed this note and agrees with this plan of care. This note was dictated using voice recognition software and make contain errors or omissions. HPI - Data of Consult Patient: new to practice Consult date: 05/23/22 Requesting Physician: CLAUDIO Luque - Consult Narrative Reason for consult: Low back pain History of present illness: Ms. Coffey is a 71 year old female who presents today as a new patient. Patient is referred by Sima Hopkins APRN. Thank you for the referral. Patient presents today with worsening low back pain. Patient states that she fell about 2 months ago and was hospitalized for 4 days. She had a closed fracture of the 11th thoracic vertebra. She was discharged from the hospital to a skilled nursing for rehab. She stayed there for more than 10 days. Because of her back pain, physical therapy could not work with her. She has tried Tylenol and lidocaine patches with minimal relief of symptoms. Denies any loss of bowel and bladder functions. Denies any radiating pain to the [place] side of her thoracic spine. Rates pain today as 8 out of 10. Patient is on a wheelchair today. She is currently prescribed gabapentin 100 mg twice a day by Dr. Hope. Banner [phone] with an active morphine equivalent of 0. CC: CLAUDIO Luque [facility] History I have reviewed the patient's past medical history: Yes Medical History: Reports:: Coronary Artery Disease, Depression, Diabetes Mellitus Type 2, Gastroesophageal Reflux Disease(GERD), Hyperlipidemia, Hypertension, Myocardial Infarction Denies:: Cancer, Diabetes Mellitus Type 1, Internal Pacemaker, MRSA, Seizures *Have you ever rec
== END ==
PROVIDERS: Visit Provider Student in an Organized Health Care Education/Training Program
DX: M79.18 Myalgia, other site (principal); S22.080A Wedge compression fracture of T11-T12 vertebra, initial encounter for closed fracture
CPT/HCPCS: 99202; G0463

== ENCOUNTER 2022-03-29 13:53 | Day surgery (SDC) | payer MEDICARE, SELFPAY ==
[2022-03-29 14:13] VITALS: BP 110/77; PULSE 94; RESP 20; TEMP 36.3; O2SAT 96; BMI 32.9
[2022-03-29 14:25] VITALS: BP 110/77; PULSE 94; RESP 20; O2SAT 94
[2022-03-29 14:27] VITALS: BP 112/74; PULSE 95; RESP 20; O2SAT 95
[2022-03-29 14:33] VITALS: BP 129/78; PULSE 90; RESP 20; O2SAT 99
--- NOTE | 2022-03-29 14:33 | P.PCN_ITS ---
- Procedure Date: 03/29/22 Time: 14:33 Anesthesiologist:: Virgil Foster MD Complications:: None Pre-procedure Diagnosis:: Myofascial pain right thoracic paraspinous area Post-procedure Diagnosis:: Same Indications for Procedure:: Patient is a pleasant 71-year-old white female who we are treating for mid back pain with myofascial pain over the thoracic paraspinous muscles. She has had pr evious compression fractures of the T11-12 vertebral body. She continues to have some severe mid back pain over the right side over the thoracic paraspinous muscles around the T11-T12 vertebral body. We will do trigger point injections to this today to help with her pain symptoms. Procedure Details:: Trigger point injections x4 to right thoracic paraspinous muscle Informed consent was obtained risk and benefits of the procedure were explained to the patient. Patient was taken the procedure room. The right mid back was prepped using ChloraPrep. Trigger points were palpated and marked. Each of these trigger points were injected with bupivacaine 0.25% 3 mL and Depo-Medrol 10 mg. A total of 4 trigger points were injected using 40 mg Depo-Medrol. The patient tolerated the procedure well with no complications. Plan and Disposition:: We will follow-up with this patient in 2 weeks. Will reevaluate her symptoms at that time.
== END 2022-03-29 14:34 | disposition home or self-care (01) ==
PROVIDERS: PCP Internal Medicine Adolescent Medicine; Visit Provider Anesthesiology
DX: M79.18 Myalgia, other site (principal); M54.6 Pain in thoracic spine; S22.080A Wedge compression fracture of T11-T12 vertebra, initial encounter for closed fracture
CPT/HCPCS: 20552; J1040

== ENCOUNTER → 2022-04-25 13:25 | Outpatient (POV) | payer MEDICARE, SELFPAY ==
[2022-04-25 15:27] VITALS: BP 127/75; PULSE 104; RESP 20; TEMP 36.6; O2SAT 97; BMI 30.9
--- NOTE | 2022-04-25 21:34 | HMH.PAINSOAP ---
[facility] Pain Management SOAP Note Subjective:: Patient is a pleasant 71-year-old female who follows up today after a trigger point injections around the right thoracic paraspinous area at T11-T12 levels. Patient is currently being treated for compression fracture of T11 vertebra, myofascial pain syndrome of the thoracic spine. After the injection, patient states that she had significant relief around her mid back. She has been able to increase her activity and has been sleeping more. She does have a mild confusion today because she is suffering from a urinary tract infection and is currently on second round of antibiotics. Her family member in the room is helping with her history. She rates her pain today as 8 out of 10. When I saw this patient last time, I also started her on lidocaine patches. The family member says that this is helping her pain the most. They would like refills on these patches. Review of Systems: General: No recent weight changes, no fever, no sleep disturbances Respiratory: No cough, no shortness of air, no recurring pulmonary infections Cardiovascular/peripheral vascular: No chest pain, no palpitations, no edema, no shortness of breath Gastrointestinal: No new onset incontinence, normal bowel movements reported Genitourinary: No new onset incontinence Musculoskeletal: Mid/low back pain Psychiatric: [Normal mood/affect] Neurological: [Denies weakness in extremities], [denies balance issues] Objective:: Physical Exam: General: Alert and oriented x3, no acute distress, pleasant and cooperative Lungs: Respirations even and unlabored, symmetrical chest expansion Eyes: PERRL Musculoskeletal: Flexion and extension of thoracic and lumbar [spine] somewhat guarded secondary to pain, [antalgic gait noted] Neurological: Speech clear, no gross sensory deficit Assessment:: Compression fracture at T11 vertebra, myofascial pain Plan:: Patient continues to have significant relief after the trigger point injections. We will follow this patient in 1 month reevaluate chronic pain syndrome. We will refill the patient's lidocaine patch. Patient has been instructed to contact the clinic with any concerns before the next appointment. Dr. Foster has reviewed this note and agrees with this plan of care. This note was dictated using voice recognition software and make contain errors or omissions. [facility] History Medical History: Reports:: Coronary Artery Disease, Depression, Diabetes Mellitus Type 2, Gastroesophageal Reflux Disease(GERD), Hyperlipidemia, Hypertension, Myocardial Infarction Denies:: Cancer, Diabetes Mellitus Type 1, Internal Pacemaker, MRSA, Seizures *Have you ever received a pneumonia vaccine?: Yes *Have you received a flu vaccine this season?: Yes Other Medical History: Reports: Arthritis Laterality Cases: Right: Arthroscopy Knee, Total Hip Replacement Other Surgeries: Yes: Cardiac Catheterization, Cholecystectomy, Coronary Stent, EGD, Other. No: Pacemaker Amputation: No Fractures: Yes (x9) - *Social History Smoking Status: Never smoker Tobacco Type: cigarettes Alcohol Intake: never Substance Use Type: denies use *Occupational Status:: other Housing: house Household Members: spouse *Travel in the last 8 weeks: None - Psychiatric History Pschychiatric History:: Reports:: Depression Family Hx:: Unable to obtain
== END ==
PROVIDERS: Visit Provider Student in an Organized Health Care Education/Training Program
DX: S22.080D Wedge compression fracture of T11-T12 vertebra, subsequent encounter for fracture with routine healing (principal); M54.04 Panniculitis affecting regions of neck and back, thoracic region
CPT/HCPCS: 99212; G0463

== ENCOUNTER 2022-05-29 12:08 | Emergency (ER) | payer MEDICARE, SELFPAY ==
[2022-05-29] VITALS (9 sets, daily range): BP systolic 138–177; BP diastolic 56–96; PULSE 85–105; RESP 17–23; TEMP 36.9; O2SAT 92–98; BMI 36.6
--- NOTE | 2022-05-29 12:24 | PC.NURSE ---
NOREEN DE LA CRUZ at
--- NOTE | 2022-05-29 12:25 | CT_ITS ---
FINAL REPORT CLINICAL HISTORY: abdominal pain FINDINGS: CT OF THE ABDOMEN AND PELVIS WITH CONTRAST Axial CT images of the abdomen and pelvis were obtained after the administration of intravenous contrast. Coronal reformatted images were also obtained and reviewed.This study was performed with techniques to keep radiation doses as low as reasonably achievable (ALARA). Individualized dose reduction techniques using automated exposure control or adjustment of mA and/or kV according to the patient's size were employed. Abdomen: There is moderate scarring/fibrosis in the lung bases. The heart is normal in size. The liver has an unremarkable appearance, without evidence of mass or biliary ductal dilatation. There is evidence of cholecystectomy. A gastric lap band is present. The spleen is unremarkable. No adrenal mass is present. The pancreas has an unremarkable appearance. There is mild renal scarring. The aorta is normal in caliber. There is no free fluid or adenopathy. No mass or abnormal fluid collection is seen. Pelvis: The appendix is not well-visualized. There has been hysterectomy. Diffuse bladder wall thickening may be inflammatory or neoplastic. There is no evidence of mass or adenopathy. There is no evidence of bowel obstruction. Postoperative changes are seen in the right femur. There is postoperative change in the lower lumbar spine and right SI joint. There is a moderate T11 compression fracture of uncertain age. IMPRESSION: Postoperative changes as above. Diffuse bladder wall thickening that may be inflammatory or neoplastic. Age-indeterminate compression fracture of T11. Reviewed, Interpreted and Dictated by Del De Leon III, MD Transcribed by Feliz Whipple Authenticated and [facility]
--- NOTE | 2022-05-29 12:27 | HMH.EDGENADL ---
ED Disposition Clinical Impression: Acute cystitis Qualifiers: Hematuria presence: without hematuria Qualified Code(s): N30.00 - Acute cystitis without hematuria Disposition: Home, Self-Care Condition on Discharge: Good Instructions: Urinary Tract Infection Additional Instructions: Please follow-up with Dr. Childers as well as your spine surgeon for definitive care. Please return with any new or worsening symptoms. Prescriptions: Cefdinir [Omnicef 300mg Capsule] 300 mg PO BID 7 Days #14 cap Transmission Status: Pending to [facility] Referrals: Luis Hope MD [Primary Care Provider] - Joseph Childers MD [Staff Physician] - - Critical Care Critical Care Time: No Attestation: On 05/29/22, the high probability of a clinically significant, sudden or life threatening deterioration of the following system(s) required my full and direct attention, intervention and personal management. The time I documented below is in addition to time spent performing reported procedures but includes the following listed in this critical care notation. Medical Decision Making - Last Inquiry Pt receiving controlled substance: No Last was queried for this patient: No Vital Signs: 05/29/22 12:09 05/29/22 12:31 05/29/22 13:01 Temperature 98.5 F Temperature Source Oral Pulse Rate 103 H 98 H Pulse Rate [Left Radial] 105 H Respiratory Rate 18 22 20 Blood Pressure 138/86 164/88 H Blood Pressure [Left Arm] 138/56 L Blood Pressure Mean 103 113 Blood Pressure Mean [Left Arm] 83 Blood Pressure Source [Left Arm] Automatic Cuff Blood Pressure Position [Left Arm] Sitting 02 Sat by Pulse Oximetry 92 L 93 L 94 L Oxygen Delivery Method Room Air 05/29/22 13:50 05/29/22 14:00 05/29/22 14:30 Temperature Temperature Source Pulse Rate 89 89 94 H Pulse Rate [Left Radial] Respiratory Rate 23 21 18 Blood Pressure 177/91 H 162/90 H 162/91 H Blood Pressure [Left Arm] Blood Pressure Mean 119 114 114 Blood Pressure Mean [Left Arm] Blood Pressure Source [Left Arm] Blood Pressure Position [Left Arm] 02 Sat by Pulse Oximetry 96 96 98 Oxygen Delivery Method 05/29/22 15:01 Temperature Temperature Source Pulse Rate 89 Pulse Rate [Left Radial] Respiratory Rate 20 Blood Pressure 148/87 H Blood Pressure [Left Arm] Blood Pressure Mean 107 Blood Pressure Mean [Left Arm] Blood Pressure Source [Left Arm] Blood Pressure Position [Left Arm] 02 Sat by Pulse Oximetry 96 Oxygen Delivery Method - Lab Data Lab Results 05/29/22 12:09: WBC 6.2, RBC 4.36, Hgb 13.5, Hct 44.0, MCV 100.8 H, MCH 31.1, MCHC 30.8 L, RDW 14.6, Plt Count 411, MPV 7.9, Neut % (Auto) 60.1, Lymph % (Auto) 24.1, Colbert % (Auto) 6.8, Eos % (Auto) 7.4, Baso % (Auto) 1.7, Neut # (Auto) 3.8, Lymph # (Auto) 1.5, Colbert # (Auto) 0.4, Eos # (Auto) 0.5 H, Baso # (Auto) 0.1 05/29/22 12:09: Sodium 139, Potassium 4.1, Chloride 106, Carbon Dioxide 25, Anion Gap 12.1, BUN 17, Creatinine 0.80, Estimated Creat Clear 73, Estimated GFR 71, Est GFR ( Amer) 85, Glucose 204 H, Calcium 9.1, Total Bilirubin 0.2, AST 33, ALT 21, Alkaline Phosphatase 79, C-Reactive Protein 2.1, Total Protein 6.7, Albumin 3.9, Globulin 2.8, Albumin/Globulin Ratio 1.4, Lipase 23 05/29/22 12:09: Procalcitonin 0.088 05/29/22 12:54: Urine Color Yellow, Urine Appearance Clear, Urine pH 5.5, Ur Specific [place] >= 1.030, Urine Protein 2+, Urine Glucose (UA) Negative, Urine Ketones Trace, Urine Blood Negative, Urine Nitrate Negative, Urine Bilirubin Negative, Urine Urobilinogen 0.2, Ur Leukocyte Esterase Trace, Urine RBC None, Urine WBC 10-20, Ur Squamous Epith Cells Occasional, Urine Bacteria 1+ Result diagrams: 05/29/22 12:09 05/29/22 12:09 Orders (Tests/Meds): ED MEDICATIONS Discontinued Medications Generic Name Dose Route Start Last Admin Trade Name Freq PRN Reason Stop Dose Admin Lactated Ringer's 1,000 mls @ 999 mls/hr 05/29/22 12:3
[2022-05-29 12:39] LABS: Basophils # 0.1 K/mm3 (0-0.2); Basophils % 1.7 % (0.1-2.0); Eosinophils # 0.5 K/mm3 (0.0-0.4); Eosinophils % 7.4 % (0.1-12.0); Hemoglobin 13.5 g/dL (12.2-16.2); Lymphocytes # 1.5 K/mm3 (0.7-4.5); Lymphocytes % 24.1 % (10-50); Mean Corpuscular HGB Conc 30.8 g/dL (31.8-35.4); Mean Corpuscular Hemoglobin 31.1 pg (27.0-31.2); Mean Corpuscular Volume 100.8 fl (81-99); Mean Platelet Volume 7.9 fl (7.4-10.4); Monocytes # 0.4 K/mm3 (0.1-1.0); Monocytes % 6.8 % (1.7-9.3); Neutrophils # 3.8 K/mm3 (1.8-7.8); Neutrophils % 60.1 % (37.0-80.0); Platelet Count 411 K/mm3 (142-424); Red Blood Count 4.36 M/mm3 (4.20-5.40); Red Cell Distribution Width 14.6 % (11.5-17.5); White Blood Count 6.2 K/mm3 (4.8-10.8)
[2022-05-29 12:43] LABS: Alanine Aminotransferase 21 U/L (12-78); Albumin Level 3.9 g/dl (3.5-5.0); Albumin/Globulin Ratio 1.4 (1.1-1.8); Alkaline Phosphatase 79 U/L (38-126); Anion Gap 12.1 mEq/L (5-15); Aspartate Amino Transferase 33 U/L (14-36); Bilirubin,Total 0.2 mg/dl (0.2-1.3); Blood Urea Nitrogen 17 mg/dl (7-17); Calcium 9.1 mg/dl (8.4-10.2); Carbon Dioxide 25 mmol/L (22.0-30.0); Chloride 106 mmol/L (98-107); Creatinine Clearance Estimated 73 mL/min (50-200); Estimated Glomerular Filt Rate 71 ml/min (>60); GFR (African American) 85 ML/MIN (>60); Globulin 2.8 g/dL (1.3-3.2); Glucose 204 mg/dl (74-100); Lipase 23 U/L (23-300); Potassium 4.1 mmoL/L (3.5-5.1); Sodium 139 mmol/L (136-145); Total Protein,Serum 6.7 g/dl (6.3-8.2)
[2022-05-29 12:48] LABS: C-Reactive Protein 2.1 mg/L (0-4)
--- NOTE | 2022-05-29 12:48 | PC.NURSE ---
rounded on pt, family and pt updated on poc. Pt asking for water, explained that not at this time due to her pending orders. Will give some as soon as MD states she can, family and pt verbalize understanding.
--- NOTE | 2022-05-29 12:55 | PC.NURSE ---
assisted with KENDALL Mendez in cath urine. Urine sent
--- NOTE | 2022-05-29 12:58 | PC.NURSE ---
urine cath sent to lab
[2022-05-29 13:03] LABS: Procalcitonin 0.088 ng/mL (0.0-2.0)
[2022-05-29 13:16] LABS: Microscopic, Urine URINE MICROSCOPIC (MICROSCOPIC)
--- NOTE | 2022-05-29 13:16 | PC.NURSE ---
pt to ct at this time
--- NOTE | 2022-05-29 13:17 | PC.NURSE ---
pt to CT via wheelchair
[2022-05-29 13:18] LABS: Appearance,Urine CLEAR (Clear); Bilirubin,Urine Negative (Negative); Blood, Urine Negative (Negative); Color,Urine YELLOW (Yellow); Glucose,Urine (UA) Negative (Negative); Ketones,Urine TRACE (Negative); Leukocyte Esterase,Urine TRACE (Negative); Nitrate,Urine Negative (Negative); PH,Urine 5.5 (5.0-8.5); Protein,Urine 2+ (Negative); Specific Gravity, Urine >= 1.030 (1.005-1.030); Urobilinogen,Urine 0.2 EU/dl (0.2)
[2022-05-29 13:35] LABS: Bacteria,Urine 1+ /lpf; Squamous Epithelial Cell,Urine Occasional #/hpf (0-5)
--- NOTE | 2022-05-29 13:41 | PC.NURSE ---
pt back from RAD
--- NOTE | 2022-05-29 14:24 | PC.NURSE ---
rounded on pt, pt sleeping at this time
--- NOTE | 2022-05-29 16:22 | PC.NURSE ---
pt getting DC
== END 2022-05-29 16:34 | disposition home or self-care (01) ==
PROVIDERS: Emergency Provider Student in an Organized Health Care Education/Training Program; PCP Internal Medicine Adolescent Medicine
DX: N30.00 Acute cystitis without hematuria (principal)
CPT/HCPCS: 74177; 80053; 81001; 83690; 84145; 85025; 86140; 87086; 96360; 99284; Q9967

== ENCOUNTER → 2022-07-03 11:16 | Outpatient (POV) | payer MEDICARE, SELFPAY ==
[2022-07-03 11:49] VITALS: BP 158/86; PULSE 98; RESP 18; TEMP 36.3; O2SAT 97; BMI 31.1
--- NOTE | 2022-07-03 12:15 | EXP.PAIN.SOA ---
[facility] Pain Management SOAP Note Subjective:: Patient is a pleasant 72-year-old female who presents today for follow-up. We are currently treating the patient for compression fracture of T11 vertebra, myofascial pain syndrome of the thoracic spine. Today the patient rates her pain a 10 out of 10 and states it is her entire back that is causing pain. Patient denies any new trauma or injury to the site. She denies any change in the location or type of pain she experiences. She states this pain has been going on for years and describes it as a throbbing sensation that is worse with increased ambulation. Patient states the only improvement she seems to get is when she rests or lays down. Patient states she does feel weak and feels that her strength in her legs has decreased over time. She is currently seeing home health who is doing physical therapy at home with her. She states she has had some improvement with this. Patient states her previous injection did provide significant improvement of her pain symptoms for a couple of months. She is interested in doing a repeat injection at today's visit. She is currently managed with gabapentin 100 mg twice a day by Dr. Hope's office. Patient denies any side effects from this medication. She states this medication does not seem to really help her pain symptoms. Patient has also been prescribed compounding cream however she states she did not notice significant improvement of her symptoms. She also takes Tylenol [id number] with minimal improvement of her symptoms. Her Last is [id number]. It has been reviewed and appropriate. Review of Systems: General: No recent weight changes, no fever, no sleep disturbances Respiratory: No cough, no shortness of air, no recurring pulmonary infections Cardiovascular/peripheral vascular: No chest pain, no palpitations, no edema, no shortness of breath Gastrointestinal: No new onset incontinence, normal bowel movements reported Genitourinary: No new onset incontinence Musculoskeletal: Mid/low back pain Psychiatric: [Normal mood/affect] Neurological: [Denies weakness in extremities], [denies balance issues] Objective:: Physical Exam: General: Alert and oriented x3, no acute distress, pleasant and cooperative Lungs: Respirations even and unlabored, symmetrical chest expansion Eyes: PERRL Musculoskeletal: Flexion and extension of thoracic, lumbar [spine] somewhat guarded secondary to pain, [antalgic gait noted] Neurological: Speech clear, no gross sensory deficit Assessment:: Compression fracture of T11 vertebra, myofascial pain syndrome of thoracic spine Plan:: Patient is having significant pain in her mid to low back during today's exam. I have discussed with the patient regarding having repeat trigger point injections of her thoracic paraspinous area. Risk and benefits have been discussed with the patient. She would like to proceed forward with this injection. I have also talked to the patient that she may be a candidate for a pain pump trial. Educational handouts were given during today's visit. We will schedule the patient for TPI of right thoracic paraspinous muscles at T11-T12. Patient has been instructed to contact the clinic with any concerns before the next appointment. Dr. Foster has reviewed this note and agrees with this plan of care. This note was dictated using voice recognition software and make contain errors or omissions. [facility] Social History (Updated 06/25/22 @ 17:04 by Joseph Childers MD) Smoking Status: Never smoker second hand exposure: No alcohol intake: never substance use type: denies use current occupational status: retired Travel in the last 8 weeks: None household members: spouse housing: house current occupational exposures/hazards: No caffeine: Yes
== END ==
PROVIDERS: PCP Internal Medicine Adolescent Medicine; Visit Provider Nurse Practitioner Family
DX: M79.18 Myalgia, other site (principal); S22.080D Wedge compression fracture of T11-T12 vertebra, subsequent encounter for fracture with routine healing
CPT/HCPCS: 99212; G0463

== ENCOUNTER → 2022-07-05 13:21 | Outpatient (CLI) | payer MEDICARE, SELFPAY | PROVIDERS: PCP Internal Medicine Adolescent Medicine; Visit Provider Urology | DX: N32.89 Other specified disorders of bladder (principal); Z01.812 Encounter for preprocedural laboratory examination; Z20.822 Contact with and (suspected) exposure to COVID-19 | CPT/HCPCS: C9803; U0003; U0005 ==

== ENCOUNTER 2022-07-08 10:00 | Day surgery (SDC) | payer MEDICARE, SELFPAY ==
[2022-07-08 10:25] VITALS: BP 158/90; PULSE 95; RESP 16; TEMP 36.7; O2SAT 98
[2022-07-08 10:28] VITALS: BMI 31.1
[2022-07-08 10:42] LABS: POC Glucose,Bedside 260 (70-110)
[2022-07-08 11:07] VITALS: BP 134/9; PULSE 91; RESP 16; TEMP 36.2; O2SAT 97
--- NOTE | 2022-07-08 11:26 | EXP.OP.NOTE ---
Date of procedure: 07/08/22 Pre-op Diagnosis:: Bladder wall thickening on recent CT scan Post-op Diagnosis:: No evidence of mucosal abnormalities in the bladder. There was sediment in the bladder indicating incomplete emptying. Procedure performed:: Cystoscopy Surgeon:: Joseph Childers MD Anesthesia: local Estimated blood loss (mL): 0 Clinical Note:: Patient is a 72-year-old white female with a recent back pain. She had a CT scan that showed some abnormal bladder wall thickening and presents for cystoscopic evaluation today. Operative findings:: There is no evidence of any bladder wall abnormalities. No evidence of mucosal abnormalities, tumors, stones or trabeculation. There was sediment in the bladder indicating she is not emptying her bladder out well. She does have some recent issues with weakness and ambulation as well as decreased cognition. Operative note:: Patient taken to the cystoscopy suite after informed consent was obtained. On the stretcher she was placed into the frog-leg position and prepped draped in the standard surgical fashion. 2% lidocaine placed into the urethra and after 5 minutes the flexible cystoscope was introduced into the urethral meatus. Passed into the bladder without difficulty and the bladder was noted to have a a lot of sediment present which made visualization difficult. The scope was removed and a 20 Divehi Carr catheter passed into the bladder and the bladder emptied. We again reintroduced the flexible cystoscope and the bladder was examined in a systematic fashion. Visualization was much better. There is no evidence of any bladder wall abnormalities, tumors, trabeculation, cellules or diverticula. The ureteral orifices in their normal anatomic position. The scope was retroflexed showing a normal bladder neck. Scope was removed and a normal urethra was noted. Patient tolerated procedure well. I discussed the findings with the patient and her today. We discussed that there is no evidence of any suspicious findings. We did discuss that she is not emptying her bladder out well and recommendations to increase her fluid intake to at least 60 ounces a day were given. Timed voiding was also recommended and instructed to void every 3 hours whether she needs to or not during the day. Cranberry tablets were also recommended to help prevent urinary tract infections. Condition: stable Disposition: same day Specimens:: None Complications:: None
== END 2022-07-08 11:18 | disposition home or self-care (01) ==
LOC: OUTP 10:01
PROVIDERS: PCP Internal Medicine Adolescent Medicine; Visit Provider Urology
DX: R93.41 Abnormal radiologic findings on diagnostic imaging of renal pelvis, ureter, or bladder (principal); Z79.899 Other long term (current) drug therapy; E11.9 Type 2 diabetes mellitus without complications
CPT/HCPCS: 52000; 82962

== ENCOUNTER 2022-07-19 14:16 | Day surgery (SDC) | payer MEDICARE, SELFPAY ==
[2022-07-19 14:22] VITALS: BP 110/68; PULSE 117; RESP 18; TEMP 36.8; O2SAT 97; BMI 31.1
--- NOTE | 2022-07-19 14:35 | EXP.PAIN.PRO ---
Procedure Date: 07/19/22 Time: 14:35 Anesthesiologist:: Virgil Foster MD Complications:: None Pre-procedure Diagnosis:: Mid back pain myofascial in origin with previous age-indeterminate compression fracture of the T11 vertebral body Post-procedure Diagnosis:: Same Indications for Procedure:: Patient is a pleasant 72-year-old white female who we are treating for mid back pain. She has a age-indeterminate compression fracture of the T11 vertebral body. However, she has gotten benefit from previous trigger point injections to the thoracic paraspinous muscles. She gets significant benefit from these injections. We will do a repeat thoracic paraspinous trigger point injection today. Procedure Details:: Informed consent was obtained the risk and benefits of the procedure were explained to the patient. Patient was taken the procedure room. The mid back was prepped using ChloraPrep. Trigger points were identified around the T11-T12 vertebral bodies. We injected a total of 4 trigger points 2 on each side with 10 mL bupivacaine 0.25% and Depo-Medrol 80 mg. The patient tolerated the procedure well with no complications. Plan and Disposition:: We will follow-up with this patient in 2 weeks. Will reevaluate her symptoms at that time. If she does not get significant relief she may be a candidate for a thoracic epidural steroid injection. We also will consider bracing to help her.
[2022-07-19 14:45] VITALS: BP 107/71; PULSE 119; RESP 20; O2SAT 98
== END 2022-07-19 14:45 | disposition home or self-care (01) ==
PROVIDERS: PCP Internal Medicine Adolescent Medicine; Visit Provider Anesthesiology
DX: M79.18 Myalgia, other site (principal); M48.54XG Collapsed vertebra, not elsewhere classified, thoracic region, subsequent encounter for fracture with delayed healing
CPT/HCPCS: 20552; J1040

== ENCOUNTER 2022-08-03 17:54 | Observation (INO) | payer MEDICARE, SELFPAY ==
[2022-08-03] VITALS (10 sets, daily range): BP systolic 124–138; BP diastolic 73–81; PULSE 83–98; RESP 16–22; TEMP 36.4–36.6; O2SAT 94–98; BMI 32.0; BMI 28.1
--- NOTE | 2022-08-03 18:05 | HMH.EDGENADL ---
Discharge Plan Disposition Chief Complaint: Weakness Prescriptions Prescriptions: No Action aspirin 81 MG tablet,delayed release (DR/EC) 81 mg PO DAILY memantine [Namenda XR] 28 MG capsule,sprinkle,ER 24hr 28 mg PO DAILY omeprazole 20 MG capsule,delayed release(DR/EC) 20 mg PO DAILY insulin detemir U-100 100 UNIT/ML insulin pen 15 units SQ HS vibegron 75 MG tablet 75 mg PO DAILY insulin aspart U-100 100 UNIT/ML insulin pen 15 units SQ AC loratadine 10 MG tablet 10 mg PO DAILY gabapentin 100 MG capsule 100 mg PO BID Qty: 60 2RF venlafaxine 100 MG tablet 100 mg PO BID lidocaine 0.05 MG/MG adhesive patch,medicated 1 patch TP DAILY buspirone 10 MG tablet 10 mg PO BID Referrals Follow up/Referrals: Provider,Referral, [Referring] - See instructions Discharge ED Provider: Devin Gonzales General Adult HPI General Chief complaint: Weakness Stated complaint: Weakness Time Seen by Provider: 08/03/22 19:30 History of Present Illness HPI narrative: History obtained from patient and patient's , mostly from the . Chief complaint is not eating or drinking and profound general weakness. He states that she has been having this problem for the past couple of months. She is eating and drinking almost nothing. He estimates 6 ounces of fluids a day. She is profoundly weak and getting weaker all the time. He says they virtually have to lift her in and out of a wheelchair. Today she also was talking out of her head and confused. She has generalized joint and body aches chronically, but she has not complained of any new acute pains. No headaches, no chest pain, no abdominal pain. No vomiting. He says that she will have diarrhea about once a week. She has had frequent urinary tract infections since this summer. He states that she was seen by Dr. Hope in the office this past week. He is requesting the patient be admitted to the hospital for IV fluids and evaluation. Related Data Home Medications Medication Instructions Recorded Confirmed aspirin 81 mg tablet,delayed 81 mg PO DAILY HEART HEALTH 03/19/18 07/19/22 release memantine 28 mg capsule 28 mg PO DAILY MEMORY 03/19/18 07/19/22 sprinkle,extended release 24hr (Namenda XR) omeprazole 20 mg capsule,delayed 20 mg PO DAILY GERD 03/19/18 07/19/22 release buspirone 10 mg tablet 10 mg PO BID Anxiety 12/30/21 07/19/22 insulin detemir U-100 100 unit/mL 15 units SQ HS Diabetes 01/29/22 07/19/22 (3 mL) subcutaneous pen vibegron 75 mg tablet 75 mg PO DAILY bladder 01/29/22 07/19/22 insulin aspart U-100 100 unit/mL 15 units SQ AC Diabetes 01/30/22 07/19/22 (3 mL) subcutaneous pen loratadine 10 mg tablet 10 mg PO DAILY Allergies 01/30/22 07/19/22 venlafaxine 100 mg tablet 100 mg PO BID MOOD 03/18/22 07/19/22 lidocaine 5 % topical patch 1 patch TP DAILY Pain 07/03/22 07/19/22 Previous Rx's Medication Instructions Recorded gabapentin 100 mg capsule 100 mg PO BID Nerve Pain #60 caps 01/31/22 Allergies Allergy/AdvReac Type Severity Reaction Status Date / Time pregabalin [From Lyrica] AdvReac Mild LIPS Verified 07/19/22 14:23 [facility] Medical History Cannot walk Diabetes mellitus, type 2 History of chest pain History of heart attack Hyperlipidemia Hypertension Irritable bowel syndrome (IBS) Macular degeneration Osteoarthritis Urinary tract infection Surgical History History of appendectomy History of cholecystectomy History of colonoscopy History of hip surgery History of hysterectomy History of knee replacement Family History (Updated 07/19/22 @ 14:24 by Yolanda Brewster RN) Other No significant family history Social History (Updated 07/19/22 @ 14:26 by Yolanda Brewster, RN) Smoking Status: Never smoker second hand exposu
[2022-08-03 18:38] LABS: Chloride 101 mmol/L (98-107)
[2022-08-03 18:39] LABS: Potassium 4.1 mmoL/L (3.5-5.1); Sodium 139 mmol/L (136-145)
[2022-08-03 18:40] LABS: Basophils # 0.1 K/mm3 (0-0.2); Basophils % 1.4 % (0.1-2.0); Eosinophils # 0.3 K/mm3 (0.0-0.4); Eosinophils % 2.8 % (0.1-12.0); Hematocrit 44.7 % (37.0-47.0); Hemoglobin 14.3 g/dL (12.2-16.2); Lymphocytes # 2.3 K/mm3 (0.7-4.5); Lymphocytes % 24.1 % (10-50); Mean Corpuscular HGB Conc 31.9 g/dL (31.8-35.4); Mean Corpuscular Volume 103.4 fl (81-99); Mean Platelet Volume 8.1 fl (7.4-10.4); Monocytes # 0.6 K/mm3 (0.1-1.0); Monocytes % 6.1 % (1.7-9.3); Neutrophils # 6.3 K/mm3 (1.8-7.8); Neutrophils % 65.7 % (37.0-80.0); Platelet Count 325 K/mm3 (142-424); Red Blood Count 4.32 M/mm3 (4.20-5.40); Red Cell Distribution Width 12.8 % (11.5-17.5); White Blood Count 9.6 K/mm3 (4.8-10.8)
[2022-08-03 18:41] LABS: Alanine Aminotransferase 23 U/L (12-78); Albumin/Globulin Ratio 1.5 (1.1-1.8); Alkaline Phosphatase 60 U/L (38-126); Anion Gap 15.1 mEq/L (5-15); Aspartate Amino Transferase 36 U/L (14-36); Bilirubin,Total 0.3 mg/dl (0.2-1.3); Blood Urea Nitrogen 14 mg/dl (7-17); Carbon Dioxide 27 mmol/L (22.0-30.0); Creatinine Clearance Estimated 64 mL/min (50-200); Estimated Glomerular Filt Rate 71 ml/min (>60); GFR (African American) 85 ML/MIN (>60); Globulin 2.6 g/dL (1.3-3.2); Total Protein,Serum 6.6 g/dl (6.3-8.2)
[2022-08-03 18:42] LABS: Calcium 8.9 mg/dl (8.4-10.2); Glucose 172 mg/dl (74-100)
--- NOTE | 2022-08-03 19:30 | PC.NURSE ---
ER at for evaluation
--- NOTE | 2022-08-03 20:00 | ECG_ITS ---
APPROVED REPORT Exam: Resting ECG HR:99 bpm ECG Measurements Heart Rate 99 AXES WI 137 P 45 QRSd 93 QRS -34 QT 351 T 61 QTc 407 Conclusion SINUS RHYTHM LOW QRS VOLTAGE IN PRECORDIAL LEADS [QRS DEFLECTION < 1.0 mV IN CHEST LEADS] POSSIBLE ANTERIOR MYOCARDIAL INFARCTION , PROBABLY OLD [30 ms Q WAVE IN V3/V4, OR R < 0.2 mV IN V4] INFERIOR MYOCARDIAL INFARCTION , PROBABLY OLD [40+ ms Q WAVE AND/OR ST/T ABNORMALITY IN II/aVF] ABNORMAL ECG INTERPRETATION BASED ON A DEFAULT AGE OF 40 YEARS UNCONFIRMED REPORT Electronically signed by : Luis Hope MD 08/05/2022 18:01:58
--- NOTE | 2022-08-03 20:09 | XR_ITS ---
PROCEDURE INFORMATION: Exam: XR Chest Exam date and time: 08/03/2022 8:27 PM Age: 72 years old Clinical indication: Other: Weakness TECHNIQUE: Imaging protocol: Radiologic exam of the chest. Views: 1 view. COMPARISON: CR XR CHEST PORTABLE 01/29/2022 1:44 PM FINDINGS: Lungs: Chronic elevated right hemidiaphragm with atelectasis of the contiguous right lung base. Atelectasis versus scarring in the left lung base. Pleural spaces: Unremarkable. No pleural effusion. No pneumothorax. Heart/Mediastinum: Heart is enlarged. Vasculature: Calcification within thoracic aorta. Bones/joints: Remodeling of the left humeral head is unchanged and likely reflects remote fracture or avascular necrosis. Osteophytosis and eburnation of the acromioclavicular and glenohumeral articulating surfaces bilaterally. Diffuse bone demineralization. IMPRESSION: 1. Chronic elevated right hemidiaphragm with atelectasis of the contiguous right lung base. 2. Atelectasis versus scarring in the left lung base. 3. Cardiomegaly. 4. Atherosclerotic vascular disease. 5. Fracture versus avascular necrosis left humeral head on a remote basis. 6. Osteoarthritis of the acromioclavicular and glenohumeral articulating surfaces bilaterally. 7. Osteopenia/osteoporosis.
[2022-08-03 20:15] LABS: Coronavirus 19, PCR Not Detected (NotDetected); Influenza A, PCR Not Detected (NotDetected); Influenza B, PCR Not Detected (NotDetected)
[2022-08-03 20:21] LABS: Creatine Kinase < 20 U/L (30-135)
[2022-08-03 20:24] LABS: Creatine Kinase MB 0.3 ng/ml (0.0-2.03)
[2022-08-03 20:48] LABS: Troponin I < 0.01 ng/ml (0.00-0.034)
[2022-08-03 21:01] LABS: Microscopic, Urine URINE MICROSCOPIC (MICROSCOPIC)
[2022-08-03 21:09] LABS: Appearance,Urine CLEAR (Clear); Bilirubin,Urine Negative (Negative); Blood, Urine Negative (Negative); Color,Urine YELLOW (Yellow); Glucose,Urine (UA) Negative (Negative); Ketones,Urine TRACE (Negative); Leukocyte Esterase,Urine Negative (Negative); Nitrate,Urine POSITIVE (Negative); PH,Urine 5.5 (5.0-8.5); Protein,Urine Negative (Negative); Specific Gravity, Urine >= 1.030 (1.005-1.030); Urobilinogen,Urine 0.2 EU/dl (0.2)
[2022-08-03 21:13] LABS: Bacteria,Urine 2+ /lpf
--- NOTE | 2022-08-03 21:17 | PC.NURSE ---
Dr. Martinez pagecullen
--- NOTE | 2022-08-03 21:20 | PC.NURSE ---
NOREEN DE LA CRUZ speaking with Dr. Martinez
--- NOTE | 2022-08-03 21:28 | PC.NURSE ---
House notified of pt admission
--- NOTE | 2022-08-03 22:05 | PC.NURSE ---
Pt given bedpan. Pt unable to urinate at this time.
[2022-08-04 04:00] VITALS: BP 120/64; PULSE 81; RESP 16; TEMP 36.4; O2SAT 94
--- NOTE | 2022-08-04 05:38 | PC.NURSE ---
NO ACUTE CHANGES SINCE PREVIOUS ASSESSMENT. PT HAS RESTED WELL SINCE ARRIVING TO THE FLOOR. UPON INITIAL ASSESSMENT WHEN PT ARRIVE TO THE FLOOR. IT WAS NOTED THAT PT HAS A REDDENED AREA ON HER BOTTOM, A RED PRESSURE AREA ON HER LEFT HEEL, AND A PRESSURE AREA ON THE RIGHT HEEL. ALL AREA WERE PRESENT ON ADMISSION. PT HAS BEEN TURNED Q2HRS AND HEELS FLOATED. VSS.
[2022-08-04 05:40] VITALS: BMI 28.1
[2022-08-04 06:00] LABS: POC Glucose,Bedside 115 (70-110)
[2022-08-04 08:20] VITALS: BP 124/69; PULSE 89; RESP 18; TEMP 36.8; O2SAT 95
--- NOTE | 2022-08-04 12:29 | EXP.HP ---
History of Present Illness *Admission Date: 08/03/22 *Reason for visit:: Weakness *History of present illness: Mrs. Coffey is a [address] of Dr[address] Hope, who was brought to [facility] ER last night by her because of her profound weakness. He states patient has been having progressively worse weakness and debility for the last few months. He states she requires assistance to stand and transfer. He states she eats and drinks very little and she has been more confused lately. He is concerned that she may be dehydrated and/or have a urinary tract infection. [facility] Medical History (Updated 08/04/22 @ 12:43 by Sammy Martinez MD) Allergic rhinitis Cannot walk Debility Dementia Diabetes mellitus, type 2 GERD (gastroesophageal reflux disease) History of heart attack Hyperlipidemia Hypertension Irritable bowel syndrome (IBS) Macular degeneration Osteoarthritis Urinary tract infection Surgical History History of appendectomy History of cholecystectomy History of colonoscopy History of hip surgery History of hysterectomy History of knee replacement Family History (Updated 08/03/22 @ 22:56 by Deepthi Hernandez RN) No significant family history Family history of cancer Family history of arthritis Family history of diabetes mellitus type II Social History (Updated 08/03/22 @ 22:57 by Deepthi Hernandez, RN) Smoking Status: Never smoker second hand exposure: No alcohol intake: never substance use type: denies use current occupational status: retired Travel in the last 8 weeks: None household members: spouse housing: house current occupational exposures/hazards: No caffeine: Yes Review of Systems Constitutional Constitutional: Denies headache(s) and Reports weakness Eyes Eyes: Denies blurry vision ENT Ears, Nose, Mouth, and Throat: Denies headache(s) *Cardiovascular Cardiovascular: Denies chest pain and Denies dyspnea *Respiratory Respiratory: Denies dyspnea *Gastrointestinal Gastrointestinal: Denies loose stools and Denies vomiting *Genitourinary Genitourinary: Denies difficulty voiding *Musculoskeletal Musculoskeletal: Reports abnormal gait and Reports muscle weakness Integumentary/Breasts Skin/Breast: Reports wounds (on both heals, right worse than left) *Neurologic Neurologic: Reports abnormal gait, Reports confusion, Denies headache(s), Reports memory loss and Reports weakness Psychiatric Psychiatric: Reports confusion and Reports memory loss Meds Home Medications and Allergies Home Medications Medication Instructions Recorded Confirmed Type memantine 28 mg capsule 28 mg PO DAILY MEMORY 03/19/18 08/03/22 History sprinkle,extended release 24hr (Namenda XR) omeprazole 20 mg capsule,delayed 20 mg PO DAILY GERD 03/19/18 08/03/22 History release vibegron 75 mg tablet 75 mg PO DAILY bladder 01/29/22 08/03/22 History insulin aspart U-100 100 unit/mL 15 units SQ AC Diabetes 01/30/22 08/03/22 History (3 mL) subcutaneous pen loratadine 10 mg tablet 10 mg PO DAILY Allergies 01/30/22 08/03/22 History gabapentin 100 mg capsule 100 mg PO BID Nerve Pain #60 caps 01/31/22 08/03/22 Rx venlafaxine 100 mg tablet 50 mg PO BID MOOD 03/18/22 08/03/22 History lidocaine 5 % topical patch 1 patch TP DAILY Pain 07/03/22 08/03/22 History New Prescriptions to Start Prescriptions: Allergies Allergy/AdvReac Type Severity Reaction Status Date / Time pregabalin [From Lyrica] AdvReac Mild LIPS Verified 07/19/22 14:23 SWELLED Exam Data for Last 24 hours Vital signs and Labs for Last 24 Hours: Temp Pulse Resp BP Pulse Ox 98.3 F 89 18 124/69 95 08/04/22 08:20 08/04/22 08:20 08/04/22 08:20 08/04/22 08:20 08/04/22 08:20 Laboratory Results - last 24 hr 08/03/22 17:20: Total Creatine Kinase < 20 L, CK-MB (CK-2) 0.3, CK-MB (CK-2) Rel Index 0.0, Troponin I < 0.01 08/03/22 17:50: WBC 9.6, RBC 4.32, Hgb 14.3,
[2022-08-04 13:14] LABS: POC Glucose,Bedside 143 (70-110)
--- NOTE | 2022-08-04 13:18 | PC.NURSE ---
spoke with MD regarding pt c/o arsenio leg and foot pain. New orders received
--- NOTE | 2022-08-04 14:09 | DIET.NUTRFU ---
RD consulted for wound healing needs, glucerna is in place with meals. Meal intake is fair to good 50-75% on diabetic diet. Will review protein needs with patient.
[2022-08-04 15:37] VITALS: BP 131/73; PULSE 87; RESP 20; TEMP 36.8; O2SAT 96
[2022-08-04 16:15] LABS: POC Glucose,Bedside 157 (70-110)
--- NOTE | 2022-08-04 16:20 | PC.WOUNDNOTE ---
Left heel right heel
--- NOTE | 2022-08-04 18:19 | PC.NURSE ---
pt is increasingly confused and anxious. we turned and repositioned her in the bed. she denies any pain @ this time. biol heel protectors in place.
[2022-08-04 19:28] VITALS: BP 136/70; PULSE 86; RESP 16; TEMP 36.8; O2SAT 93
[2022-08-04 21:08] LABS: POC Glucose,Bedside 190 (70-110)
[2022-08-05 03:39] VITALS: BP 142/74; PULSE 85; RESP 16; TEMP 36.6; O2SAT 92
[2022-08-05 05:00] VITALS: BMI 28.5
--- NOTE | 2022-08-05 05:30 | PC.NURSE ---
NO ACUTE CHANGES SINCE PREVIOUS ASSESSMENT. PT HAS BEEN AWAKE MOST OF THE SHIFT. LUNG SOUNDS REMAIN CLEAR. TOLERATING ROOM AIR WELL. NO C/O N/V/D. PTHAS BEEN TURNED Q2HRS. SHE REMAINS PLEASANTLY CONFUSED. SHE KNOWS HER NAME BUT KEEPS ASKING WERE SHE IS OR IF SHE IS BACK IN THE HOSPITAL. VSS.
[2022-08-05 06:06] LABS: POC Glucose,Bedside 129 (70-110)
[2022-08-05 06:27] LABS: Basophils # 0.1 K/mm3 (0-0.2); Basophils % 1.1 % (0.1-2.0); Eosinophils # 0.3 K/mm3 (0.0-0.4); Eosinophils % 3.7 % (0.1-12.0); Hematocrit 37.4 % (37.0-47.0); Hemoglobin 12.4 g/dL (12.2-16.2); Lymphocytes % 33.8 % (10-50); Mean Corpuscular HGB Conc 33.2 g/dL (31.8-35.4); Mean Corpuscular Hemoglobin 33.5 pg (27.0-31.2); Mean Corpuscular Volume 100.9 fl (81-99); Monocytes # 0.5 K/mm3 (0.1-1.0); Neutrophils # 4.9 K/mm3 (1.8-7.8); Neutrophils % 55.5 % (37.0-80.0); Platelet Count 245 K/mm3 (142-424); Red Blood Count 3.71 M/mm3 (4.20-5.40); Red Cell Distribution Width 12.8 % (11.5-17.5); White Blood Count 8.8 K/mm3 (4.8-10.8)
[2022-08-05 06:39] LABS: Chloride 106 mmol/L (98-107); Potassium 3.2 mmoL/L (3.5-5.1); Sodium 139 mmol/L (136-145)
[2022-08-05 06:42] LABS: Blood Urea Nitrogen 5 mg/dl (7-17); Calcium 7.9 mg/dl (8.4-10.2); Creatinine Clearance Estimated 56 mL/min (50-200); Estimated Glomerular Filt Rate 98 ml/min (>60); GFR (African American) 119 ML/MIN (>60); Glucose 134 mg/dl (74-100)
[2022-08-05 07:36] VITALS: BMI 28.5
[2022-08-05 08:00] VITALS: BP 136/71; PULSE 91; RESP 21; TEMP 36.5; O2SAT 94
--- NOTE | 2022-08-05 08:59 | EXP.PN ---
Subjective *Date: 08/05/22 *Time: 08:59 Interval history: Patient feels a little bit better than she did on admission. Continues to feel very weak. Continues to feel like she cannot eat very much. Also notes that her right heel continues to bother her in regards to some pain and discomfort. Exam Data for Last 24 hours Vital signs and Labs for Last 24 Hours: Temp Pulse Resp BP Pulse Ox 97.7 F 91 H 21 136/71 94 L 08/05/22 08:00 08/05/22 08:00 08/05/22 08:00 08/05/22 08:00 08/05/22 08:00 Laboratory Results - last 24 hr 08/03/22 20:29: Urine Color Yellow, Urine Appearance Clear, Urine pH 5.5, Ur Specific [place] >= 1.030, Urine Protein Negative, Urine Glucose (UA) Negative, Urine Ketones Trace, Urine Blood Negative, Urine Nitrate Positive, Urine Bilirubin Negative, Urine Urobilinogen 0.2, Ur Leukocyte Esterase Negative, Urine WBC 5-10, Urine Bacteria 2+ 08/04/22 11:24: POC Glucose 143 H 08/04/22 16:08: POC Glucose 157 H 08/04/22 20:59: POC Glucose 190 H 08/05/22 05:50: WBC 8.8, RBC 3.71 L, Hgb 12.4, Hct 37.4, MCV 100.9 H, MCH 33.5 H, MCHC 33.2, RDW 12.8, Plt Count 245, MPV 8.0, Neut % (Auto) 55.5, Lymph % (Auto) 33.8, [place] % (Auto) 6.0, Eos % (Auto) 3.7, Baso % (Auto) 1.1, Neut # (Auto) 4.9, Lymph # (Auto) 3.0, [place] # (Auto) 0.5, Eos # (Auto) 0.3, Baso # (Auto) 0.1 08/05/22 05:50: Sodium 139, Potassium 3.2 L D, Chloride 106, Carbon Dioxide 27, BUN 5 L D, Creatinine 0.60 D, Estimated Creat Clear 56, Estimated GFR 98, Est GFR ( Amer) 119 D, Glucose 134 H, Calcium 7.9 L 08/05/22 05:57: POC Glucose 129 H I & O for Last 24 hours: Intake & Output 08/02/22 08/03/22 08/04/22 08/05/22 11:59 11:59 11:59 11:59 Intake Total 300 / 300 3809 / 3809 Output Total 600 / 600 1300 / 1300 Balance -300 / -300 2509 / 2509 Weight 153 lb 3 oz 155 lb 1.523 oz Microbiology Reports for the Last 24 Hours: Microbiology 08/03/22 20:29 Urine,Catheterized Urine Culture - Preliminary Gram Negative Rods Constitutional Comments: Patient is alert. Oriented x3. Pleasant and talkative. Appears mildly ill but not toxic. Lungs have good air movement, heart rate regular. Abdomen is a little bit distended but not tender, normal bowel sounds. Heel is protected and heel pads. No distal edema. Globally very weak. Assessment and Plan *Assessment and plan (1) Weakness: Status: Acute Category: Medical Code(s): R53.1 - Weakness (2) UTI (urinary tract infection): Status: Acute Category: Medical Code(s): N39.0 - Urinary tract infection, site not specified (3) Diabetes mellitus: Status: Chronic Qualifiers: Qualified Code(s): Z79.4 - CHCF (current) use of insulin Category: Medical Code(s): E11.9 - Type 2 diabetes mellitus without complications (4) Dementia: Status: Acute Category: Medical Code(s): F03.90 - Unspecified dementia, unspecified severity, without behavioral disturbance, psychotic disturbance, mood disturbance, and anxiety (5) Debility: Status: Acute Category: Medical Code(s): R53.81 - Other malaise Plan Patient admitted for further evaluation and management of her UTI and debility. Rocephin will be continued, culture is pending. Spoke to nurse about using heal guards. Will need PT/OT evaluation as patient's thinks she would benefit from short term rehab placement. Agree with admission plan. Continue antibiotics, await urine culture. PT/OT evaluation for need for skilled care/rehab/wound care. Social work consultation for skilled care placement evaluation
--- NOTE | 2022-08-05 09:46 | HMH.OTEV ---
OT Inpatient Evaluation Rehab OT IP Evaluation Start: 08/05/22 08:13 Freq: ONCE Status: Complete Protocol: Document 08/05/22 09:37 [facility] (Rec: 08/05/22 09:46 [facility] [id number]) Rehab OT IP Assessment Subjective History Pt oriented x 1 on arrival. Pt agreeable to engage in therapy evaluation. Pt's present and supportive . provided most information due to pt's decrease in orientation. Pt was admitted via Ed on 08/03/22 due to weakness. reports she has progressively become weaker and less functional within the past two months. Normally she was in a wheelchair, but was able to transfer herself from surface to surface independently. Now , she requires max assistance with all transfers. She is unable to complete dressing or bathing. She is dependent upon for all ADLs and IADLs. She is able to feed herself, has not been eating well explains he is not able to care for her due to her decrease in function. Subjective I can try. Pt resting in bed. Pt completed bed mobility and went from supine to sitting at eob with max assist x 2. Pt was able to maintain sitting balance at eob with cga/min assist. Pt sat at eob for ~2 minutes. Pt required max assist x 2 to go from sitting to supine. Pt was left in bed with call mendiola and all other needs in reach. Objective Patient Orientation Person Upper Extremity Gross ROM Mod Limitation 50% Shoulder ROM Limitations Muscle Weakness Elbow ROM Limitations Muscle Weakness Wrist Limitations of Range of Motion Muscle Weakness Bed Mobility bed mobility-scooting,bed mobility - supine/sit,bed mobility - rolling
--- NOTE | 2022-08-05 10:01 | DIET.NUTRFU ---
Patient triggers for severe PCM secondary to weight loss of 20# since January's visit. Lives at home with and daughters help with meals. He reports she is just never hungry. They have tried supplements, she will sip on them. She also has skin breakdown to bilateral heels. At risk for further breakdown d/t poor nutrition. Currently she is ordered diabetic diet with poor intake of 25-50%, glucerna is ordered to provide additional calories and protein if consumed. When this RD asked about her mood he did say she is depressed, only gets happy when grandson is around. May benefit from remeron it stimulate appetite. Spoke to case mgt about recommendations and concerns
--- NOTE | 2022-08-05 10:16 | SW/DCPLANNER ---
Addendum entered by Albania Garcia 08/06/22 09:33: This patient has been approved to discharge to [facility] SNF level of care today. COVID swab has been ordered prior to discharge. Addendum entered by Albania Garcia 08/06/22 08:39: Precert is pending for this patient. Addendum entered by Albania Garcia 08/05/22 14:30: [facility] has started the precert for this patient. Original Note: I spoke with this patient regarding discharge plans. Patient resides at home with her in [facility]. Patient/ expressed an interest in SNF level of care at [facility] if necessary at time of discharge. [place] [facility] stated that she does have female beds available. Once PT/OT evaluation is completed patient information will be faxed to [facility]. Discharge date is unknown at this time.
--- NOTE | 2022-08-05 11:07 | PC.WOUNDNOTE ---
Addendum entered by Sandip Teixeira RN 08/05/22 11:08: AWA OROZCO AND MIGUELANGEL APPLIED Original Note:
--- NOTE | 2022-08-05 11:07 | PC.WOUNDNOTE ---
Addendum entered by Sandip Teixeira RN 08/05/22 11:07: BUTTOCKS, NEW PINK DSG APPLIED Original Note:
--- NOTE | 2022-08-05 11:08 | PC.NURSE ---
Applied telfa and kerlix to R and L heel. L heel draining serosangious drainage.
[2022-08-05 11:56] LABS: Anion Gap 9.2 mEq/L (5-15); Carbon Dioxide 27 mmol/L (22.0-30.0)
[2022-08-05 12:12] LABS: POC Glucose,Bedside 208 (70-110)
--- NOTE | 2022-08-05 13:22 | HMH.PHAINT1 ---
Pharmacy Intervention Comments: Home medication reconciliation completed using outpatient pharmacy list, MAR from provider's office and interview with patient and family.
--- NOTE | 2022-08-05 13:39 | HMH.PTEV ---
Physical Therapy Evaluation Rehab PT IP Evaluation Start: 08/04/22 12:48 Freq: ONCE Status: Active Protocol: Document 08/05/22 12:50 JOHNDIMAS (Rec: 08/05/22 13:01 LATASHATamara [id number]) Subjective/History History History Pt is a 72 y/o female that reported to [facility] ER on 08/02/22 with due to profound weakness. Pt's reports progressive weakness and debility over the last 2 weeks with increased confusion as well. Pt's reports she was not walking at baseline and was using a wheelchair for prime mode of transportation. Pt's reports he would assist with transferring her to the bed and bathroom; however, it is getting harder on him to do. Pt's reports they live in a one story home that is fairly handicap accessible with a walk in tub, hand rails, and a hospital bed. Subjective Subjective Pt was oriented to name and city only upon arrival to room . Pt agreeable to participate in therapy evaluation. Rehab PT IP Eval Objective Appearance Patient Behavior Cooperative,Confused Patient Orientation Person,Place Difficulty following instructions mild Speech Pattern Appropriate,Soft-Spoken Ambulation Patient Able to Ambulate No Balance Ability to Arise Unable Sitting Balance Leans or slides in chair Standing Balance Unsteady Dynamic Sitting Balance Ability Poor Dynamic Standing Balance Ability Zero Transfers Bed Transfer Ability Moderate x 2 (50% assist), Maximum x 2 (75% assist) Sit to Stand Bed Transfer Ability Maximum x 2 (75% assist) Pain Right Foot Pain Intensity 8 Left Foot Pain Intensity 8 ROM RLE PT ROM Status WFL LLE PT ROM Status WFL MMT RLE PT MMT WFL LLE PT MMT WFL Rehab PT IP prob,goals,plan Problems Date of Evaluation: 08/05/22 PT IP Problems Bed Mobility,Transfers,Gait, Balance,Self care,Safety
[2022-08-05 16:00] VITALS: BP 144/78; PULSE 98; RESP 17; TEMP 36.6; O2SAT 90
[2022-08-05 16:18] LABS: POC Glucose,Bedside 326 (70-110)
--- NOTE | 2022-08-05 16:42 | HMH.PTWOUND ---
Rehab Inpt Wound Evaluation Rehab IP Wound Evaluation Start: 08/04/22 12:45 Freq: DAILY Status: Active Protocol: Document 08/05/22 12:00 VIJAYA (Rec: 08/05/22 12:49 VIJAYA [id number]) Rehab PT Wound Assessment Patient Status Premedicated Prior to Dressing Change No Subjective Subjective See subjective for inpatient evaluation for mobility Wound Right Heel Wound Type Pressure Ulcer Is This a Chronic Wound No Wound Staging Stage I Query Text:Stage I - Unbroken, red skin, no blanching. Stage II - Skin broken, superficial skin loss involving epidermis alone or also dermis. Partial loss of skin layers. Stage III - Pressure area involves epidermis, dermis and subcutaneous tissue, full thickness skin loss. Stage IV - Pressure area involves epidermis, subcutaneous tissue, bone and other supportive tissue. Full thickness skin loss with extensive destruction of underlying tissue and structures. Pre or Postulcerative Lesion completely w/o infection/ischemia epithelialized Superficial wound not involving tendon, w/o infection/ischemia capsule or bone Wound Length (cm) 1.2 Wound Width (cm) 1.8 Wound Bed Appearance Blisters Wound Margins Description Well Defined Left Heel Wound Type Pressure Ulcer Is This a Chronic Wound No Wound Staging Stage II Query Text:Stage I - Unbroken, red skin, no blanching. Stage II - Skin broken, superficial skin loss involving epidermis alone or also dermis. Partial loss of skin layers. Stage III - Pressure area involves epidermis, dermis and subcutaneous tissue, full thickness skin loss. Stage IV - Pressure area involves epidermis, subcutaneous tissue, bone and other supportive tissue. Full thickness skin loss with extensive destruction of underlying tissue and structures. Pre or Postulcerative Lesion completely w/o infection/ischemia epithelialized Superficial wound not involving tendon, w/o infection/ischemia capsule or bone Wound Length (cm) 4.8 Wound Width (cm) 4 Wound Depth (cm) 0 Wound Bed Appearance Blisters Wound Margins Description Well Defined Primary Dressing Non-Adherent Gauze Pad Wound Secondary Dressing Type Gauze Roll/Wrap Plan/Recommendation Comment Pt to
--- NOTE | 2022-08-05 18:11 | PC.NURSE ---
No acute changes since previous assessment. VSS. Have turned and repositioned q 2 hrs. CB in reach and bed alarm in use for safety. Heels floated. Pt seems to have had a better today and gained some strength back, did feed herself lunch.
[2022-08-05 20:00] VITALS: BP 148/82; PULSE 89; RESP 16; TEMP 37.3; O2SAT 95
[2022-08-06 04:00] VITALS: BP 138/66; PULSE 70; RESP 16; TEMP 37; O2SAT 96
[2022-08-06 05:00] VITALS: BMI 29.2
--- NOTE | 2022-08-06 05:03 | PC.NURSE ---
pt a&o to name and place only, follows verbal commands. confused and lethargic this shift. she has been turned/repositioned in bed q 2 hrs. heels floated off mattress with pillows.
[2022-08-06 07:36] LABS: Basophils # 0.1 K/mm3 (0-0.2); Eosinophils # 0.3 K/mm3 (0.0-0.4); Eosinophils % 2.7 % (0.1-12.0); Hematocrit 38.5 % (37.0-47.0); Hemoglobin 12.3 g/dL (12.2-16.2); Lymphocytes # 2.3 K/mm3 (0.7-4.5); Lymphocytes % 25.4 % (10-50); Mean Corpuscular Hemoglobin 32.6 pg (27.0-31.2); Mean Corpuscular Volume 102.1 fl (81-99); Mean Platelet Volume 8.1 fl (7.4-10.4); Monocytes # 0.5 K/mm3 (0.1-1.0); Monocytes % 5.4 % (1.7-9.3); Neutrophils % 65.5 % (37.0-80.0); Platelet Count 242 K/mm3 (142-424); Red Blood Count 3.78 M/mm3 (4.20-5.40); Red Cell Distribution Width 12.8 % (11.5-17.5); White Blood Count 9.2 K/mm3 (4.8-10.8)
[2022-08-06 07:50] LABS: Chloride 108 mmol/L (98-107); Potassium 3.9 mmoL/L (3.5-5.1); Sodium 138 mmol/L (136-145)
[2022-08-06 07:53] LABS: Anion Gap 9.9 mEq/L (5-15); Blood Urea Nitrogen 7 mg/dl (7-17); Calcium 8.1 mg/dl (8.4-10.2); Carbon Dioxide 24 mmol/L (22.0-30.0); Creatinine Clearance Estimated 58 mL/min (50-200); Estimated Glomerular Filt Rate 121 ml/min (>60); GFR (African American) 147 ML/MIN (>60); Glucose 107 mg/dl (74-100)
[2022-08-06 07:58] VITALS: BP 146/76; PULSE 95; RESP 20; TEMP 36.4; O2SAT 95
--- NOTE | 2022-08-06 08:46 | EXP.DC.SUM ---
General Admission date:: 08/03/22 Discharge date: 08/06/22 HPI HPI HPI: Mrs. Coffey is a 72 [address] old patient of Dr. Hope, who was brought to [facility] ER last night by her because of her profound weakness. He states patient has been having progressively worse weakness and debility for the last few months. He states she requires assistance to stand and transfer. He states she eats and drinks very little and she has been more confused lately. He is concerned that she may be dehydrated and/or have a urinary tract infection. Hospital Course Hospital Course Hospital Course: Patient was admitted, given IV fluids for her dehydration and acute kidney injury. This did well. She was found have an E. coli urinary tract infection, treated with Rocephin, this was sensitive. She will continue antibiotics on transfer to the correction. PT and OT evaluated her, felt that she would do well with skilled care and a bed was found for her at the [facility] today. She also is a heel wound from home and this was dressed appropriately by OT and wound care instructions were detailed in the chart. Plan to be to transfer to [facility], she will be on the antibiotics. She will receive a dietary consult for her protein calorie malnutrition given recent weight loss as well as PT/OT evaluation. We will follow her there on her rounds. Exam Data for Last 24 hours Vital signs and Labs for Last 24 Hours: Temp Pulse Resp BP Pulse Ox 97.6 F 95 H 20 146/76 H 95 08/06/22 07:58 08/06/22 07:58 08/06/22 07:58 08/06/22 07:58 08/06/22 07:58 Laboratory Results - last 24 hr 08/05/22 05:50: Carbon Dioxide 27, Anion Gap 9.2 08/05/22 11:34: POC Glucose 208 H 08/05/22 16:02: POC Glucose 326 H* 08/06/22 07:20: WBC 9.2, RBC 3.78 L, Hgb 12.3, Hct 38.5, MCV 102.1 H, MCH 32.6 H, MCHC 32.0, RDW 12.8, Plt Count 242, MPV 8.1, Neut % (Auto) 65.5, Lymph % (Auto) 25.4, [place] % (Auto) 5.4, Eos % (Auto) 2.7, Baso % (Auto) 1.0, Neut # (Auto) 6.0, Lymph # (Auto) 2.3, [place] # (Auto) 0.5, Eos # (Auto) 0.3, Baso # (Auto) 0.1 08/06/22 07:20: Sodium 138, Potassium 3.9 D, Chloride 108 H, Carbon Dioxide 24, Anion Gap 9.9, BUN 7 D, Creatinine 0.50 L, Estimated Creat Clear 58, Estimated GFR 121, Est GFR ( Amer) 147 D, Glucose 107 H, Calcium 8.1 L I & O for Last 24 hours: Intake & Output 08/03/22 08/04/22 08/05/22 08/06/22 11:59 11:59 11:59 11:59 Intake Total 300 / 300 3809 / 3809 2109 / 2109 Output Total 600 / 600 1300 / 1300 1000 / 1000 Balance -300 / -300 2509 / 2509 1109 / 1109 Weight 153 lb 3 oz 155 lb 1.523 oz 158 lb 14.4 oz Microbiology Reports for the Last 24 Hours: Microbiology 08/03/22 20:29 Urine,Catheterized Urine Culture - Final Escherichia coli Constitutional Constitutional: no acute distress, morbidly obese and chronically ill appearing Comments: Patient is alert and pleasant but very globally weak *Routine HEENT Exam Head: Present normocephalic Eye: Present EOMI and PERRL ENT: Present mucous membranes moist *Routine Neck Exam Neck: Present supple; Absent lymphadenopathy *Routine Respiratory Exam Respiratory: Present CTA bilaterally *Routine Cardiovascular Exam Cardiovascular: Present RRR *Routine Abdominal Exam Abdominal: Present soft and normoactive bowel sounds; Absent tenderness *Routine Extremities Exam Extremities: Absent cyanosis, clubbing or edema *Routine Skin Exam Skin: Present warm; Absent rash Comments: Right heel is dressed per Occupational Therapy *Routine Neurological Exam Neurological: Present alert and oriented X3 Results Data Completed and Pending Labs on day of discharge: Labs from last 24 hours 08/06/22 08/06/22 08/05/22 07:20 07:20 16:02 WBC 9.2 RBC 3.78 L Hgb 12.3 Hct 38.5 MCV 102.1 H MCH 32.6 H MCHC 32.0 RDW 12.8 Plt Count 242 MPV 8.1 Neut % (Auto) 65.5 Lymph % (Auto) 25.4 Mon
[2022-08-06 10:21] LABS: Coronavirus 19, PCR Not Detected (NotDetected); Influenza A, PCR Not Detected (NotDetected); Influenza B, PCR Not Detected (NotDetected)
[2022-08-06 12:56] LABS: POC Glucose,Bedside 173 (70-110)
--- NOTE | 2022-08-06 14:13 | PC.NURSE ---
Report called to [facility].
[2022-08-07 05:58] LABS: POC Glucose,Bedside 104 (70-110)
[2022-08-07 05:58] LABS: POC Glucose,Bedside 266 (70-110)
--- NOTE | 2022-08-07 14:54 | CARE MANAGER ---
Spoke with patient's spouse today to discuss post discharge status. He states that patient is settling in well at SNF and has no known needs at this time.
== END 2022-08-06 13:10 ==
LOC: ER 19:01 → 2ND 22:28
PROVIDERS: Admitting Provider Family Medicine; Emergency Provider Emergency Medicine; PCP Internal Medicine Adolescent Medicine; Visit Provider Internal Medicine Adolescent Medicine
DX: E11.9 Type 2 diabetes mellitus without complications; Z79.899 Other long term (current) drug therapy; Z79.4 Long term (current) use of insulin; E86.0 Dehydration; N17.9 Acute kidney failure, unspecified; N39.0 Urinary tract infection, site not specified; E46 Unspecified protein-calorie malnutrition; Z68.29 Body mass index [BMI] 29.0-29.9, adult; F03.90 Unspecified dementia, unspecified severity, without behavioral disturbance, psychotic disturbance, mood disturbance, and anxiety; Z20.822 Contact with and (suspected) exposure to COVID-19
CPT/HCPCS: G0378; 36415; 71045; 80048; 80053; 81001; 82550; 82553; 82962; 84484; 85025; 87086; 87088; 87186; 93005; 97163; 97167; 97530; 99285; C9803; J0696; U0003; U0005

== ENCOUNTER 2022-08-12 15:57 | Emergency (ER) | payer MEDICARE, SELFPAY ==
[2022-08-12 15:57] VITALS: BP 144/85; PULSE 100; RESP 18; TEMP 36.6; O2SAT 98; BMI 33.3
--- NOTE | 2022-08-12 16:09 | CT_ITS ---
PROCEDURE INFORMATION: Exam: CT Head Without Contrast Exam date and time: 08/12/2022 4:20 PM Age: 72 years old Clinical indication: Altered mental status/memory loss; Other: Right sided weakness; Additional info: Ams--right sided weakness TECHNIQUE: Imaging protocol: Computed tomography of the head without contrast. Radiation optimization: All CT scans at this facility use at least one of these dose optimization techniques: automated exposure control; mA and/or kV adjustment per patient size (includes targeted exams where dose is matched to clinical indication); or iterative reconstruction. COMPARISON: MR HEAD/BRAIN WO CON 01/30/2022 11:19 AM FINDINGS: Brain: The brain demonstrates diffuse volume loss. White matter hypodensities, in particular profound, fairly confluent white matter hypodensities probably reflecting chronic small vessel ischemic change. No visible evolving territorial infarct. No hemorrhage. Cerebral ventricles: The ventricles are enlarged in keeping with volume loss, in particular central volume loss. Paranasal sinuses: Visualized sinuses are unremarkable. No fluid levels. Mastoid air cells: Visualized mastoid air cells are well aerated. Orbital cavities: Prior left lens surgery. Bones/joints: Unremarkable. No acute fracture. Soft tissues: Unremarkable. Vasculature: Calcified atherosclerosis of the carotid siphons and cisternal vertebral arteries. IMPRESSION: No acute intracranial abnormality seen.
--- NOTE | 2022-08-12 16:23 | PC.NURSE ---
pt to radiology via stretcher
--- NOTE | 2022-08-12 16:29 | PC.NURSE ---
pt return from radiology
[2022-08-12 16:30] VITALS: BP 132/78; PULSE 98; O2SAT 95
[2022-08-12 17:00] VITALS: BP 146/84; PULSE 97; O2SAT 95
[2022-08-12 17:05] LABS: Microscopic, Urine URINE MICROSCOPIC (MICROSCOPIC)
[2022-08-12 17:09] LABS: Basophils # 0.1 K/mm3 (0-0.2); Eosinophils # 0.3 K/mm3 (0.0-0.4); Eosinophils % 4.3 % (0.1-12.0); Hemoglobin 14.3 g/dL (12.2-16.2); Lymphocytes # 2.1 K/mm3 (0.7-4.5); Mean Corpuscular HGB Conc 32.5 g/dL (31.8-35.4); Mean Corpuscular Hemoglobin 32.6 pg (27.0-31.2); Mean Corpuscular Volume 100.2 fl (81-99); Mean Platelet Volume 8.2 fl (7.4-10.4); Monocytes # 0.5 K/mm3 (0.1-1.0); Monocytes % 7.4 % (1.7-9.3); Neutrophils # 3.7 K/mm3 (1.8-7.8); Neutrophils % 55.4 % (37.0-80.0); Platelet Count 279 K/mm3 (142-424); Red Blood Count 4.39 M/mm3 (4.20-5.40); Red Cell Distribution Width 12.7 % (11.5-17.5); White Blood Count 6.6 K/mm3 (4.8-10.8)
[2022-08-12 17:10] LABS: Chloride 101 mmol/L (98-107); Sodium 138 mmol/L (136-145)
[2022-08-12 17:13] LABS: Alanine Aminotransferase 14 U/L (12-78); Albumin Level 3.8 g/dl (3.5-5.0); Albumin/Globulin Ratio 1.4 (1.1-1.8); Alkaline Phosphatase 68 U/L (38-126); Aspartate Amino Transferase 26 U/L (14-36); Bilirubin,Total 0.4 mg/dl (0.2-1.3); Blood Urea Nitrogen 19 mg/dl (7-17); Carbon Dioxide 29 mmol/L (22.0-30.0); Creatinine Clearance Estimated 73 mL/min (50-200); Estimated Glomerular Filt Rate 71 ml/min (>60); GFR (African American) 85 ML/MIN (>60); Globulin 2.7 g/dL (1.3-3.2); Total Protein,Serum 6.5 g/dl (6.3-8.2)
[2022-08-12 17:14] LABS: Calcium 8.7 mg/dl (8.4-10.2); Glucose 152 mg/dl (74-100)
[2022-08-12 17:15] LABS: Appearance,Urine CLEAR (Clear); Bilirubin,Urine Negative (Negative); Blood, Urine Negative (Negative); Color,Urine YELLOW (Yellow); Glucose,Urine (UA) Negative (Negative); Ketones,Urine Negative (Negative); Leukocyte Esterase,Urine TRACE (Negative); Nitrate,Urine Negative (Negative); PH,Urine 5.5 (5.0-8.5); Protein,Urine Negative (Negative); Specific Gravity, Urine >= 1.030 (1.005-1.030); Urobilinogen,Urine 0.2 EU/dl (0.2)
[2022-08-12 17:21] LABS: C-Reactive Protein 10.2 mg/L (0-4)
[2022-08-12 17:25] LABS: Coronavirus 19, PCR Not Detected (NotDetected); Influenza A, PCR Not Detected (NotDetected); Influenza B, PCR Not Detected (NotDetected)
[2022-08-12 17:30] VITALS: BP 137/82; PULSE 95; O2SAT 95
[2022-08-12 17:34] LABS: Strep Scrn Group A (Rapid) Negative (Negative)
[2022-08-12 17:53] LABS: Bacteria,Urine Trace /lpf; Squamous Epithelial Cell,Urine Occasional #/hpf (0-5)
[2022-08-12 18:00] VITALS: BP 136/103; PULSE 101; RESP 18; O2SAT 96
--- NOTE | 2022-08-12 18:43 | CT_ITS ---
PROCEDURE INFORMATION: Exam: CT Abdomen And Pelvis With Contrast Exam date and time: 08/12/2022 7:03 PM Age: 72 years old Clinical indication: Abdominal tenderness and nausea; Additional info: [place], generalized abdominal pain TECHNIQUE: Imaging protocol: Computed tomography of the abdomen and pelvis with contrast. Radiation optimization: All CT scans at this facility use at least one of these dose optimization techniques: automated exposure control; mA and/or kV adjustment per patient size (includes targeted exams where dose is matched to clinical indication); or iterative reconstruction. Contrast material: ISOVUE; Contrast volume: 75 ml; Contrast route: IV; COMPARISON: CT ABDOMEN PELVIS W CON 05/29/2022 1:27 PM FINDINGS: Tubes, catheters and devices: A gastric lap band is again demonstrated. Lungs: A calcified granuloma in the left lower lobe. There are areas of lung base subsegmental atelectasis. Heart: There are coronary artery calcifications. Liver: The dome of the liver is excluded from view. The visualized liver is unremarkable. Gallbladder and bile ducts: Prior cholecystectomy. Pancreas: Normal. No ductal dilation. Spleen: Normal. No splenomegaly. Adrenal glands: Normal. No mass. Kidneys and ureters: The kidneys demonstrate cortical atrophy and scarring. No evidence of hydronephrosis. 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 The ileocecal junction is located in the right upper quadrant. No evidence of bowel obstruction. There is colonic diverticulosis. Some liquid stool present in the distal colon with mild colonic wall thickening and apparent mucosal enhancement, coronal image 24 of series 1001 perhaps reflecting enteritis/diarrheal state. The appearance of gastric wall thickening may be related to underdistention. The gastroduodenal junction is poorly characterized due to incomplete distension and motion artifact. Appendix: A normal appendix is again demonstrated in the right upper quadrant. Intraperitoneal space: Unremarkable. No free air. No significant fluid collection. Vasculature: There is aortoiliac atherosclerosis. No evidence of aneurysm or visible dissection. Lymph nodes: Unremarkable. No enlarged lymph nodes. Urinary bladder: The bladder is decompressed and poorly evaluated. Reproductive: Prior hysterectomy. Bones/joints: A T11 compression deformity is again demonstrated. Postoperative changes of the lumbar spine at L4-L5 with hardware and prior laminectomy. There is lumbar levoconvex scoliosis. Prior surgical fixation of the right hip. Prior surgical fixation of the right sacroiliac joint. There are old inferior pubic rami fractures. Diffuse osseous demineralization. Soft tissues: Unremarkable. IMPRESSION: Some liquid stool present in the distal colon with mild colonic wall thickening and apparent mucosal enhancement perhaps reflecting enteritis/diarrheal state.
--- NOTE | 2022-08-12 18:46 | HMH.EDGENADL ---
Discharge Plan Disposition Patient Disposition: Home, Self-Care Condition: Fair Prescriptions Prescriptions: No Action omeprazole 20 MG capsule,delayed release(DR/EC) 20 mg PO DAILY buspirone 5 mg tablet 5 mg PO BID metformin 500 mg tablet 500 mg PO BID levetiracetam 500 mg tablet 500 mg PO BID clopidogrel 75 mg tablet 75 mg PO DAILY loratadine 10 mg tablet 10 mg PO DAILY venlafaxine 50 mg tablet 50 mg PO BID Levemir FlexTouch U-100 Insuln 100 unit/mL (3 mL) insulin pen 20 unit SQ AM cefdinir 300 mg capsule 300 mg PO BID Qty: 14 0RF Referrals Follow up/Referrals: Luis Hope MD [Primary Care Provider] - See instructions Clinical Impressions Clinical Impression: Weakness, Diarrhea Instructions Patient Instructions: Diarrhea Discharge ED Provider: Bryan Mariano General Adult HPI General Chief complaint: Weakness Stated complaint: weakness Time Seen by Provider: 08/12/22 16:10 Mode of Arrival: EMS Source of Information: Patient, EMS and Medical Record Limitations: Physical Limitations Description of Symptoms (Recalled from ER Triage Doc. by RN): per jail pt has been more weak than normal, noticed right sided weakness one week ago, family did not want to send out. Per ems pt has hx of cva with right sided weakness. Pt denies any pain or issues at this time. History of Present Illness HPI narrative: Patient is a 72-year-old female with a past medical history of dementia, CVA, recent UTI currently on antibiotics who presents with worsening weakness. Patient was recently admitted to the hospital and subsequently discharged to the nursing facility for PT/OT. Patient was sent from the jail today with concern for worsening right-sided weakness. is at bedside to assist the history. He states that the patient has not been eating very well and is also started develop some diarrhea. Patient denies any nausea or vomiting but does say has intermittent abdominal pain. Denies any shortness of breath but does complain of a sore throat. Related Data Home Medications Medication Instructions Recorded Confirmed omeprazole 20 mg capsule,delayed 20 mg PO DAILY acid reflux 03/19/18 08/03/22 release buspirone 5 mg tablet 5 mg PO BID Depression 08/04/22 08/04/22 clopidogrel 75 mg tablet 75 mg PO DAILY Blood thinner 08/04/22 08/04/22 levetiracetam 500 mg tablet 500 mg PO BID SEIZURES 08/04/22 08/05/22 loratadine 10 mg tablet 10 mg PO DAILY ALLERGIES 08/04/22 08/04/22 metformin 500 mg tablet 500 mg PO BID Diabetes 08/04/22 08/04/22 insulin detemir U-100 100 unit/mL 20 unit SQ AM Diabetes 08/05/22 08/05/22 (3 mL) subcutaneous pen (Levemir FlexTouch U-100 Insulin) venlafaxine 50 mg tablet 50 mg PO BID Depression 08/05/22 08/05/22 Previous Rx's Medication Instructions Recorded cefdinir 300 mg capsule 300 mg PO BID #14 caps 08/06/22 Allergies Allergy/AdvReac Type Severity Reaction Status Date / Time pregabalin [From Lyrica] AdvReac Mild LIPS Verified 07/19/22 14:23 [facility] Medical History (Updated 08/12/22 @ 20:25 by Bryan Mariano MD) Allergic rhinitis Cannot walk Debility Dementia Diabetes mellitus, type 2 GERD (gastroesophageal reflux disease) History of heart attack Hyperlipidemia Hypertension Irritable bowel syndrome (IBS) Macular degeneration Osteoarthritis Urinary tract infection Surgical History History of appendectomy History of cholecystectomy History of colonoscopy History of hip surgery History of hysterectomy History of knee replacement Family History (Updated 08/03/22 @ 22:56 by Deepthi Hernandez, RN) Other Family history of arthritis Family history of cancer Family history of diabetes mellitus type II No significant family history Social History (Updated 08/03/22 @ 22:57 by Deepthi Hernandez, RN) Smok
[2022-08-12 19:19] LABS: Procalcitonin 0.087 ng/mL (0.0-2.0)
--- NOTE | 2022-08-12 19:36 | PC.NURSE ---
Patient has returned from CT scan. 1000ml of LR hung per MD request and order. Patient is resting in bed. Patient denies any pain but does state that she doesnt know what her name is or where she is. Per report, patient at baseline is confused. Patient does know her birthday and her husbands name.
--- NOTE | 2022-08-12 20:21 | PC.NURSE ---
Contacted [place] [facility] regarding patient discharge and transfer to [facility].
--- NOTE | 2022-08-12 20:27 | PC.NURSE ---
Attempted to call report to [facility] twice. No answer. No voicemail set up.
--- NOTE | 2022-08-12 21:16 | PC.NURSE ---
CALLED [facility]IPE ABOUT TRANSPORT BACK TO [facility] PER MAGDY AT [place] , THEY ARE CHECKING AND WILL GET BACK TO US
--- NOTE | 2022-08-12 21:22 | PC.NURSE ---
Patient transfer to [facility] was postponed while EMS transferred a patient of a higher acquity. Patient is comfortable, given two warm blankets and a drink. TV is on and patient has call mendiola.
--- NOTE | 2022-08-12 21:55 | PC.NURSE ---
Report called to Fatou at [facility].
[2022-08-12 22:43] VITALS: BP 170/86; PULSE 98; RESP 16; TEMP 37; O2SAT 98
--- NOTE | 2022-08-12 22:45 | PC.NURSE ---
Patient transported by [facility] as [facility] is unable to transport. Per Lui with [facility] due to their current work load it might be a few hours before patient can transfer. [facility] was notified with permission from [facility].
== END 2022-08-12 22:47 | disposition home or self-care (01) ==
PROVIDERS: Emergency Provider Student in an Organized Health Care Education/Training Program; PCP Internal Medicine Adolescent Medicine
DX: R53.1 Weakness (principal); R19.7 Diarrhea, unspecified; Z86.73 Personal history of transient ischemic attack (TIA), and cerebral infarction without residual deficits; Z87.440 Personal history of urinary (tract) infections; Z79.84 Long term (current) use of oral hypoglycemic drugs; Z79.4 Long term (current) use of insulin; Z79.899 Other long term (current) drug therapy; Z88.8 Allergy status to other drugs, medicaments and biological substances; F03.90 Unspecified dementia, unspecified severity, without behavioral disturbance, psychotic disturbance, mood disturbance, and anxiety; E11.9 Type 2 diabetes mellitus without complications; E78.5 Hyperlipidemia, unspecified; I10 Essential (primary) hypertension; M19.90 Unspecified osteoarthritis, unspecified site; K21.9 Gastro-esophageal reflux disease without esophagitis; K58.9 Irritable bowel syndrome, unspecified
CPT/HCPCS: 70450; 74177; 80053; 81001; 84145; 85025; 86140; 87430; 96365; 99285; C9803; Q9967; U0003; U0005

== ENCOUNTER 2022-09-10 16:39 | Observation (INO) | payer MEDICARE, SELFPAY ==
[2022-09-10 16:39] VITALS: BP 130/78; PULSE 107; RESP 18; TEMP 36.6; O2SAT 97; BMI 29.1
--- NOTE | 2022-09-10 18:12 | HMH.EDGENADL ---
Discharge Plan Disposition Patient Disposition: Admitted As Inpatient Condition: Fair Clinical Impressions Clinical Impression: UTI (urinary tract infection), Agitation Discharge ED Provider: Nima Campbell General Adult HPI General Chief complaint: Altered Mental Status Stated complaint: altered mental status Time Seen by Provider: 09/10/22 17:16 Mode of Arrival: EMS Source of Information: EMS and Medical Record Limitations: dementia Description of Symptoms (Recalled from ER Triage Doc. by RN): per custodial pt is more confused than her baseline History of Present Illness HPI narrative: Patient presents with agitation that began earlier today. She has a history of dementia and is a custodial resident. Symptoms are described as moderate to severe and without exacerbating or alleviating factors. She had similar symptoms in the past however none of the severity reportedly. She has had some diarrhea of late according to her . There is been no vomiting although she did apparently complain of some abdominal discomfort earlier today to custodial staff. History is limited due to the patient's altered mental status Related Data Home Medications Medication Instructions Recorded Confirmed omeprazole 20 mg capsule,delayed 20 mg PO DAILY acid reflux 03/19/18 08/03/22 release buspirone 5 mg tablet 5 mg PO BID Depression 08/04/22 08/04/22 clopidogrel 75 mg tablet 75 mg PO DAILY Blood thinner 08/04/22 08/04/22 levetiracetam 500 mg tablet 500 mg PO BID SEIZURES 08/04/22 08/05/22 loratadine 10 mg tablet 10 mg PO DAILY ALLERGIES 08/04/22 08/04/22 metformin 500 mg tablet 500 mg PO BID Diabetes 08/04/22 08/04/22 insulin detemir U-100 100 unit/mL 20 unit SQ AM Diabetes 08/05/22 08/05/22 (3 mL) subcutaneous pen (Levemir FlexTouch U-100 Insulin) venlafaxine 50 mg tablet 50 mg PO BID Depression 08/05/22 08/05/22 Previous Rx's Medication Instructions Recorded cefdinir 300 mg capsule 300 mg PO BID #14 caps 08/06/22 Allergies Allergy/AdvReac Type Severity Reaction Status Date / Time pregabalin [From Lyrica] AdvReac Mild LIPS Verified 07/19/22 14:23 [facility] Medical History (Updated 09/10/22 @ 19:37 by Nima Campbell MD) Allergic rhinitis Cannot walk Debility Dementia Diabetes mellitus, type 2 GERD (gastroesophageal reflux disease) History of heart attack Hyperlipidemia Hypertension Irritable bowel syndrome (IBS) Macular degeneration Osteoarthritis Urinary tract infection Surgical History History of appendectomy History of cholecystectomy History of colonoscopy History of hip surgery History of hysterectomy History of knee replacement Family History (Updated 08/03/22 @ 22:56 by Deepthi Hernandez, RN) Other Family history of arthritis Family history of cancer Family history of diabetes mellitus type II No significant family history Social History (Updated 08/03/22 @ 22:57 by Deepthi Hernandez, RN) Smoking Status: Unknown if ever smoked second hand exposure: No alcohol intake: never substance use type: denies use current occupational status: retired Travel in the last 8 weeks: None household members: spouse housing: house current occupational exposures/hazards: No caffeine: Yes ROS Obtained: Yes All systems reviewed & no additional complaints except as documented and Yes unobtainable due to mental condition Constitutional Constitutional: Reports system reviewed and no additional complaints, except as documented Physical Exam General General appearance: alert and in no apparent distress Head Head exam: atraumatic, normocephalic and normal inspection Eye Eye exam: Present normal appearance, PERRL and EOMI ENT ENT exam: Present normal exam, normal oropharynx, mucous membranes moist, TM's normal bilaterally and normal external ear exam Neck Neck exam: Present normal inspection, full ROM and t
[2022-09-10 18:36] LABS: Microscopic, Urine URINE MICROSCOPIC (MICROSCOPIC)
[2022-09-10 18:39] VITALS: BP 128/62; PULSE 109; O2SAT 96
[2022-09-10 18:39] LABS: Basophils # 0.1 K/mm3 (0-0.2); Basophils % 0.7 % (0.1-2.0); Eosinophils # 0.7 K/mm3 (0.0-0.4); Eosinophils % 6.6 % (0.1-12.0); Hemoglobin 13.3 g/dL (12.2-16.2); Lymphocytes # 3.4 K/mm3 (0.7-4.5); Lymphocytes % 32.8 % (10-50); Mean Corpuscular HGB Conc 31.7 g/dL (31.8-35.4); Mean Corpuscular Hemoglobin 32.1 pg (27.0-31.2); Mean Corpuscular Volume 101.2 fl (81-99); Mean Platelet Volume 7.4 fl (7.4-10.4); Monocytes # 0.6 K/mm3 (0.1-1.0); Monocytes % 5.2 % (1.7-9.3); Neutrophils # 5.7 K/mm3 (1.8-7.8); Neutrophils % 54.7 % (37.0-80.0); Platelet Count 507 K/mm3 (142-424); Red Blood Count 4.16 M/mm3 (4.20-5.40); Red Cell Distribution Width 13.1 % (11.5-17.5); White Blood Count 10.5 K/mm3 (4.8-10.8)
[2022-09-10 18:42] LABS: Chloride 101 mmol/L (98-107); Potassium 3.2 mmoL/L (3.5-5.1); Sodium 139 mmol/L (136-145)
[2022-09-10 18:44] LABS: Blood Urea Nitrogen 15 mg/dl (7-17); Creatinine Clearance Estimated 64 mL/min (50-200); Estimated Glomerular Filt Rate 71 ml/min (>60); GFR (African American) 85 ML/MIN (>60)
[2022-09-10 18:45] LABS: Alanine Aminotransferase 15 U/L (12-78); Albumin Level 3.1 g/dl (3.5-5.0); Albumin/Globulin Ratio 1.1 (1.1-1.8); Alkaline Phosphatase 115 U/L (38-126); Anion Gap 13.2 mEq/L (5-15); Aspartate Amino Transferase 24 U/L (14-36); Bilirubin,Total 0.2 mg/dl (0.2-1.3); Calcium 9.3 mg/dl (8.4-10.2); Carbon Dioxide 28 mmol/L (22.0-30.0); Globulin 2.8 g/dL (1.3-3.2); Glucose 101 mg/dl (74-100); Total Protein,Serum 5.9 g/dl (6.3-8.2)
[2022-09-10 18:49] LABS: Appearance,Urine CLOUDY (Clear); Bilirubin,Urine Negative (Negative); Blood, Urine 1+ (Negative); Color,Urine YELLOW (Yellow); Glucose,Urine (UA) Negative (Negative); Ketones,Urine Negative (Negative); Leukocyte Esterase,Urine 2+ (Negative); Nitrate,Urine POSITIVE (Negative); PH,Urine 5.5 (5.0-8.5); Protein,Urine 1+ (Negative); Specific Gravity, Urine 1.025 (1.005-1.030); Urobilinogen,Urine 0.2 EU/dl (0.2)
[2022-09-10 19:18] LABS: Coronavirus 19, PCR Not Detected (NotDetected); Influenza A, PCR Not Detected (NotDetected); Influenza B, PCR Not Detected (NotDetected)
--- NOTE | 2022-09-10 19:34 | PC.NURSE ---
Dr. Campbell speaking with Dr. Hope
[2022-09-10 20:18] LABS: Bacteria,Urine Trace /lpf; RBC,Urine Occasional #/hpf (0-3); WBC,Urine TNTC #/hpf (0-3)
[2022-09-10 20:32] VITALS: BP 125/79; PULSE 113; RESP 18; TEMP 36.6; O2SAT 96
[2022-09-10 20:50] VITALS: BP 134/73; PULSE 109; RESP 16; TEMP 36.6; O2SAT 96; BMI 24.6
--- NOTE | 2022-09-10 20:50 | PC.NURSE ---
PT ARRIVED VIA STRETCHER AT THIS TIME
--- NOTE | 2022-09-10 23:20 | PC.NURSE ---
Called pts to verify DNR status over phone, no answer at this time. Will attempt to call again early am.
[2022-09-11 04:00] VITALS: BP 111/77; PULSE 102; RESP 16; TEMP 36.6; O2SAT 97
--- NOTE | 2022-09-11 06:16 | PC.NURSE ---
Attempted to call pts again at this time, no answer.
--- NOTE | 2022-09-11 06:41 | PC.NURSE ---
Pt c/o abdominal pain and nausea 1 x t/o shift. MD made aware. New order for 25mg IV Phenergan q6h PRN read back, verified, and carried out. Pt states favorable results. Call light within reach. Bed alarm and seizure pads on for pt safety.
[2022-09-11 06:55] VITALS: BP 127/76; PULSE 100; RESP 14; TEMP 36.5; O2SAT 99
[2022-09-11 07:05] LABS: POC Glucose,Bedside 113 (70-110)
--- NOTE | 2022-09-11 07:35 | PC.NURSE ---
Pt has been very lethargic since receiving 25 mg IV Phenergan. Pt has been hard to wake at times but vital signs have remained WNL. Passed along in report to Ronald Zapata.
[2022-09-11 07:55] VITALS: BP 149/54; PULSE 108; RESP 16; TEMP 36.2; O2SAT 97
--- NOTE | 2022-09-11 08:49 | EXP.HP ---
History of Present Illness *Admission Date: 09/10/22 *Reason for visit:: Mental status changes/fever *History of present illness: 72-year-old female, afflicted with severe diabetes, visual impairment and severe depression with psychotic features and dementia, who is a long-term care resident of the [facility]. Over the past 48 hours she had increasing problems with mental status changes, aggressive behavior and is actually gotten a Haldol injection at the group home. She became worse and was transported to the emergency department. She was found to have evidence of UTI, hypokalemia and was admitted to hospital for evaluation [facility] Medical History (Updated 09/11/22 @ 08:53 by Luis Hope MD) Allergic rhinitis Cannot walk Debility Dementia Diabetes mellitus, type 2 GERD (gastroesophageal reflux disease) History of heart attack Hyperlipidemia Hypertension Irritable bowel syndrome (IBS) Macular degeneration Osteoarthritis Urinary tract infection Surgical History History of appendectomy History of cholecystectomy History of colonoscopy History of hip surgery History of hysterectomy History of knee replacement Family History (Updated 08/03/22 @ 22:56 by Deepthi Hernandez RN) No significant family history Family history of cancer Family history of arthritis Family history of diabetes mellitus type II Social History (Updated 08/03/22 @ 22:57 by Deepthi Hernandez RN) Smoking Status: Unknown if ever smoked second hand exposure: No alcohol intake: never substance use type: denies use current occupational status: retired Travel in the last 8 weeks: None household members: spouse housing: house current occupational exposures/hazards: No caffeine: Yes Review of Systems Review of Systems Review of systems:: unable to obtain Meds Home Medications and Allergies Home Medications Medication Instructions Recorded Confirmed Type omeprazole 20 mg capsule,delayed 20 mg PO DAILY acid reflux 03/19/18 09/11/22 History release buspirone 5 mg tablet 5 mg PO BID Depression 08/04/22 09/11/22 History clopidogrel 75 mg tablet 75 mg PO DAILY Blood thinner 08/04/22 09/11/22 History levetiracetam 500 mg tablet 500 mg PO BID SEIZURES 08/04/22 09/11/22 History loratadine 10 mg tablet 10 mg PO DAILY ALLERGIES 08/04/22 09/11/22 History metformin 500 mg tablet 500 mg PO BID Diabetes 08/04/22 09/11/22 History insulin detemir U-100 100 unit/mL 15 unit SQ DAILY Diabetes 08/05/22 09/11/22 History (3 mL) subcutaneous pen (Levemir FlexTouch U-100 Insulin) venlafaxine 50 mg tablet 50 mg PO BID Depression 08/05/22 09/11/22 History acetaminophen 325 mg tablet 650 mg PO BID PRN Fever 09/11/22 09/11/22 History acetaminophen 500 mg tablet 1,000 mg PO BID PRN Pain, Moderate 09/11/22 09/11/22 History (Acetaminophen Extra Strength) bisacodyl 10 mg rectal suppository 10 mg SD DAILY PRN Constipation 09/11/22 09/11/22 History hydroxyzine HCl 25 mg tablet 25 mg PO BID PRN Anxiety 09/11/22 09/11/22 History mirtazapine 7.5 mg tablet 7.5 mg PO HS Diet supplement 09/11/22 09/11/22 History multivitamin,tx-minerals 1 tab PO DAILY Supplement 09/11/22 09/11/22 History pen needle, diabetic, safety 30 09/11/22 09/11/22 History gauge x 1/3 (Novofine Autocover) polyethylene glycol 3350 17 gram 17 g PO DAILY PRN Constipation 09/11/22 09/11/22 History oral powder packet quetiapine 25 mg tablet (Seroquel) 25 mg PO BID Anxiety 09/11/22 09/11/22 History zinc oxide 1 applic topical DAILY Skin 09/11/22 09/11/22 History condition New Prescriptions to Start Prescriptions: Allergies Allergy/AdvReac Type Severity Reaction Status Date / Time pregabalin [From Lyrica] AdvReac Mild LIPS Verified 07/19/22 14:23 SWELLED Exam Data for Last 24 hours Vital signs and Labs for Last 24 Hours: Temp Pulse Resp BP Pulse Ox 97.1 F L 108 H 16
--- NOTE | 2022-09-11 09:04 | SW/DCPLANNER ---
Addendum entered by Albania Garcia 09/13/22 09:22: Updated patient information has been faxed to Helena quigley/ [facility]. Addendum entered by Albania Garcia 09/12/22 10:01: Updated patient information has been faxed to Helena quigley/ [facility]. Original Note: This patient currently resides at [facility]. I have followed up with Helena at [facility] and will continue to follow up during patient's stay. Updated patient information will be faxed. Discharge date is unknown at this time.
--- NOTE | 2022-09-11 09:08 | HMH.PHAINT1 ---
Pharmacy Intervention Comments: Medication reconciliation completed via external fill history and MAR from patient's chart. -Silva Tyler, PharmD Candidate 2022
[2022-09-11 11:35] LABS: POC Glucose,Bedside 117 (70-110)
--- NOTE | 2022-09-11 11:42 | DIET.NUTRFU ---
Spoke to nurse at [facility], she was on puree thin diet, 1:1 assistance with meals. Was receiving ice cream with lunch. They reported 13# wt loss over last 30 days. They also reported skin breakdown to sacrum, will review with nursing. At [place] patient was receiving house supplement QID, Proheal BID. She does have a A1c of 9.1 on 12/31/21, based on overall intake will continue regular diet with altered consistency. Add glucerna with trays, ice cream with lunch and once verify skin condition will add prostat BID
[2022-09-11 11:48] VITALS: BMI 24.6
[2022-09-11 15:27] VITALS: BP 132/70; PULSE 107; RESP 18; TEMP 36.8; O2SAT 96
[2022-09-11 17:26] LABS: POC Glucose,Bedside 168 (70-110)
--- NOTE | 2022-09-11 18:53 | PC.NURSE ---
PT ALERT TO SELF, WITH FREQUENT COMPLAINTS OF ABD DISCOMFORT TREATED WITH PRESCRIBED ZOFRAN. PT HAS BEEN YELLING OUT MAJORITY OF SHIFT. NO COMPLAINTS OF PAIN OR DISCOMFORT. PT DONE WELL WHEN WAS AT BEDSIDE. ORDER OF NS @ 150 TO BE STARTED PER DR. HAND. PT HAS ATE 25% OR LES SOF MEALS TODAY WITH LITTLE INTAKE OF PO FLUIDS. HACKETT IN PLACE.
[2022-09-11 20:00] VITALS: BP 122/76; PULSE 124; RESP 16; TEMP 36.6; O2SAT 97
[2022-09-11 20:52] LABS: POC Glucose,Bedside 111 (70-110)
[2022-09-11 22:10] VITALS: PULSE 102
[2022-09-12] VITALS: BMI 25.0
[2022-09-12 04:00] VITALS: BP 124/68; PULSE 100; RESP 16; TEMP 36.6; O2SAT 98
--- NOTE | 2022-09-12 05:18 | PC.NURSE ---
Pt has continuously yelled out during shift. Pt alert to self. Pt can be reoriented but will become confused again after a few minutes. Carr cath in place draining cloudy yellow urine with sediment. Pt c/o back pain 1x t/o shift and tylenol was administered per DEC. Bed alarm and seizure pads in place for pt safety. Call light within reach.
[2022-09-12 06:29] LABS: POC Glucose,Bedside 148 (70-110)
[2022-09-12 07:22] LABS: Basophils # 0.1 K/mm3 (0-0.2); Basophils % 0.6 % (0.1-2.0); Eosinophils # 0.7 K/mm3 (0.0-0.4); Eosinophils % 6.6 % (0.1-12.0); Hematocrit 37.9 % (37.0-47.0); Hemoglobin 12.7 g/dL (12.2-16.2); Lymphocytes # 2.5 K/mm3 (0.7-4.5); Lymphocytes % 24.5 % (10-50); Mean Corpuscular HGB Conc 33.5 g/dL (31.8-35.4); Mean Corpuscular Hemoglobin 32.8 pg (27.0-31.2); Mean Corpuscular Volume 98.1 fl (81-99); Mean Platelet Volume 8.9 fl (7.4-10.4); Monocytes # 0.7 K/mm3 (0.1-1.0); Monocytes % 6.4 % (1.7-9.3); Neutrophils # 6.3 K/mm3 (1.8-7.8); Neutrophils % 61.8 % (37.0-80.0); Platelet Count 439 K/mm3 (142-424); Red Blood Count 3.86 M/mm3 (4.20-5.40); Red Cell Distribution Width 13.8 % (11.5-17.5); White Blood Count 10.2 K/mm3 (4.8-10.8)
[2022-09-12 07:36] LABS: Anion Gap 17.6 mEq/L (5-15); Blood Urea Nitrogen 7 mg/dl (7-17); Calcium 8.6 mg/dl (8.4-10.2); Carbon Dioxide 18 mmol/L (22.0-30.0); Chloride 109 mmol/L (98-107); Creatinine Clearance Estimated 55 mL/min (50-200); Estimated Glomerular Filt Rate 98 ml/min (>60); GFR (African American) 119 ML/MIN (>60); Glucose 150 mg/dl (74-100); Potassium 5.6 mmoL/L (3.5-5.1); Sodium 139 mmol/L (136-145)
[2022-09-12 07:53] VITALS: BP 126/78; PULSE 106; RESP 16; TEMP 36.7; O2SAT 97
--- NOTE | 2022-09-12 08:22 | EXP.ACUTE.PN ---
Subjective *Date: 09/12/22 *Time: 08:22 Interval history: Patient is much more awake and alert than yesterday. Has been yelling out but not really in pain. She specifically denies pain. She reports things like I have to go to the bathroom -continues to take antibiotics for her UTI. Medical Exam Vital signs and Labs for Last 24 Hours: Vital Signs Temp Pulse Resp BP Pulse Ox 09/12/22 07:53 98.0 F 106 H 16 126/78 97 09/12/22 04:00 97.9 F 100 H 16 124/68 98 09/11/22 22:10 102 H 09/11/22 20:00 97.9 F 124 H 16 122/76 97 09/11/22 15:27 98.2 F 107 H 18 132/70 96 Intake and Output 09/11/22 09/12/22 09/12/22 19:59 03:59 11:59 Intake Total 529 / 1413 884 / 1413 Output Total 300 / 800 500 / 800 Balance 229 / 613 384 / 613 Intake: Intake, Oral Amount 240 / 240 Intake, Total IV Amount 289 / 1173 884 / 1173 0.9 % Sodium Chloride 1,000 ml 289 / 1123 834 / 1123 @ 150 mls/hr IV .[id number] [facility] Rx# :[id number] Ceftriaxone 1 gm 1 gm In 0.9 % 50 / 50 Sodium Chloride 50 ml @ 100 mls /hr IV Q24H [facility] Rx#:[id number] Output: Output, Urine Amount 300 / 800 500 / 800 Other: Number of Unmeasured Voids 1 0 0 Weight 150 lb 8 oz Patient Weight 09/12/22 11:59 Weight 150 lb 8 oz Laboratory Results - last 24 hr 09/11/22 11:19: POC Glucose 117 H 09/11/22 17:15: POC Glucose 168 H 09/11/22 20:45: POC Glucose 111 H 09/12/22 06:20: POC Glucose 148 H 09/12/22 06:57: WBC 10.2, RBC 3.86 L, Hgb 12.7, Hct 37.9, MCV 98.1, MCH 32.8 H, MCHC 33.5, RDW 13.8, Plt Count 439 H, MPV 8.9, Neut % (Auto) 61.8, Lymph % (Auto) 24.5, [place] % (Auto) 6.4, Eos % (Auto) 6.6, Baso % (Auto) 0.6, Neut # (Auto) 6.3, Lymph # (Auto) 2.5, [place] # (Auto) 0.7, Eos # (Auto) 0.7 H, Baso # (Auto) 0.1 09/12/22 06:57: Sodium 139, Potassium 5.6 H D, Chloride 109 H, Carbon Dioxide 18 L, Anion Gap 17.6 H, BUN 7 D, Creatinine 0.60 D, Estimated Creat Clear 55, Estimated GFR 98, Est GFR ( Amer) 119 D, Glucose 150 H, Calcium 8.6 I & O for Labs for Last 24 Hours: Intake & Output 09/09/22 09/10/22 09/11/22 09/12/22 11:59 11:59 11:59 11:59 Intake Total 1413 / 1413 Output Total 850 / 850 800 / 800 Balance -850 / -850 613 / 613 Weight 147 lb 11.355 oz 150 lb 8 oz Microbiology Reports for the Last 24 Hours: Microbiology 09/10/22 18:30 Urine,Catheterized Urine Culture - Preliminary Comment:: Weight loss noted in her abdomen, wrinkling and scaphoid changes consistent with weight loss. Lungs have good air movement, heart rate regular. Extremities are warm and well-perfused. Carr catheter draining clear yellow urine. Cranial nerves intact. She is oriented, but yells out when she is alone in her room. Assessment and Plan *Assessment and plan (1) Weakness: Status: Acute Category: Medical Code(s): R53.1 - Weakness (2) UTI (urinary tract infection): Status: Acute Category: Medical Code(s): N39.0 - Urinary tract infection, site not specified (3) Diabetes mellitus: Status: Chronic Qualifiers: Qualified Code(s): Z79.4 - care home (current) use of insulin Category: Medical Code(s): E11.9 - Type 2 diabetes mellitus without complications (4) Dementia: Status: Acute Category: Medical Code(s): F03.90 - Unspecified dementia, unspecified severity, without behavioral disturbance, psychotic disturbance, mood disturbance, and anxiety (5) Debility: Status: Acute Category: Medical Code(s): R53.81 - Other malaise (6) Acute hyperactive delirium due to another medical condition: Status: Acute Category: Medical Code(s): F05 - Delirium due to known physiological condition (7) Protein calorie malnutrition: Status: Acute Category: Medical Code(s): E46 - Unspecified protein-calorie malnutrition Plan UTI is improving. Await cult
--- NOTE | 2022-09-12 08:24 | CT_ITS ---
FINAL REPORT TECHNIQUE: Axial CT images were performed through the head. Coronal reformatted images were submitted. This study was performed with techniques to keep radiation doses as low as reasonably achievable (ALARA). Individualized dose reduction techniques using automated exposure control or adjustment of mA and/or kV according to the patient's size were employed. CLINICAL HISTORY: altered mental status COMPARISON: July 2022 FINDINGS: There is moderate atrophy with proportionate ventriculomegaly. There is extensive decreased attenuation in the deep white matter. There is no evidence of hemorrhage. There is no mass or edema identified. There is no abnormal extra-axial fluid seen. The sinuses are well aerated. IMPRESSION: Atrophy with extensive changes of microvascular ischemia. No acute intracranial process. Reviewed, Interpreted and Dictated by Stef Mcintosh MD Transcribed by Feliz Whipple Authenticated and [facility]
--- NOTE | 2022-09-12 09:52 | HMH.OTEV ---
OT Inpatient Evaluation Rehab OT IP Evaluation Start: 09/12/22 08:08 Freq: ONCE Status: Complete Protocol: Document 09/12/22 09:40 VU (Rec: 09/12/22 09:52 VU [id number]) Rehab OT IP Assessment Subjective History 72-year-old female, afflicted with severe diabetes, visual impairment and severe depression with psychotic features and dementia, who is a long-term care resident of the [facility]. Over the past 48 hours she had increasing problems with mental status changes, aggressive behavior and is actually gotten a Haldol injection at the alf. She became worse and was transported to the emergency department. She was found to have evidence of UTI, hypokalemia and was admitted to hospital for evaluation PMH: Allergic rhinitis Cannot walk Debility Dementia Diabetes mellitus, type 2 GERD (gastroesophageal reflux disease) History of heart attack Hyperlipidemia Hypertension Irritable bowel syndrome (IBS) Macular degeneration Osteoarthritis Urinary tract infection Subjective I need help to get out. Instructed Patient on proper hand and foot placement to complete supine->sit @ EOB-> SPT to w/c requiring Max A x2. Radiology transport patient for CT scan. Objective Patient Orientation Name Upper Extremity Gross ROM WFL Bed Mobility bed mobility - supine/sit Assist Level Maximum x 1 (75% assist) Transfer Training Sit/Stand/Pivot Transfer Assist Level Maximum x 2 (75% assist) Chair Transfer Ability Maximum x 2 (75% assist) Chair Transfer Technique Stand Step Pivot Rehab OT
[2022-09-12 11:27] LABS: POC Glucose,Bedside 159 (70-110)
--- NOTE | 2022-09-12 11:53 | HMH.PTEV ---
Physical Therapy Evaluation Rehab PT IP Evaluation Start: 09/12/22 08:08 Freq: ONCE Status: Active Protocol: Document 09/12/22 11:48 PHOSHIVA (Rec: 09/12/22 11:53 PHORNE [id number]) Subjective/History History History 72 yowf adm to [facility] from SNF with UTI. Pt with dementia at baseline and has difficulty following commands. No family present for further hx. Subjective Subjective Pt currently has difficulty following commands which is baseline. Oriented to person only. Rehab PT IP Eval Objective Appearance Patient Behavior Anxious,Confused,Patient Baseline Patient Orientation Person Difficulty following instructions moderate Speech Pattern Clear Ambulation Patient Able to Ambulate Yes Ambulation Observation IP General Gait Pattern Observation Shuffling Step Ambulation Distance (feet) 3 Ambulation Assistive Device None Ambulation Ability Minimal x 1 (25% assist) Balance Ability to Arise Able, uses arms to help Sitting Balance Steady, safe Standing Balance Unsteady Dynamic Sitting Balance Ability Fair Dynamic Standing Balance Ability Poor Transfers Bed Transfer Ability Minimal x 2 (25% assist) Chair Transfer Ability Minimal x 2 (25% assist) Sit to Stand Bed Transfer Ability Minimal x 2 (25% assist) Sit to Stand Chair Transfer Ability Minimal x 2 (25% assist) Rehab PT IP prob,goals,plan Problems Date of Evaluation: 09/12/22 Discharge Plan PT Discharge Plan Pt currently appears to be at baseline for all mobility and has difficulty following commands. She is not currently appropriate for inpatient therapy at this time. If her command following improves, further treatment may be warranted. Otherwise she is appropriate to return to prior living situation. G -code Required No Eval Complexity Eval Charge Codes 67214 - Moderate Complexity PHYSICIAN CERTIFICATION: I certify the specified therapy services for [place] are required, authorized, and reviewed every 30 days.
[2022-09-12 16:00] VITALS: BP 138/76; PULSE 120; RESP 18; TEMP 37.1; O2SAT 97
[2022-09-12 17:02] LABS: POC Glucose,Bedside 258 (70-110)
--- NOTE | 2022-09-12 18:28 | PC.NURSE ---
NEW IV STARTED IN RT FA, 20G. DC IV IN LT FA. PT HAS YELLED OUT MAJORITY OF SHIFT, PT NOW RESTING PEACEFULLY IN ROOM. HACKETT IN PLACE WITH ADEQUATE CLEAR YELLOW UOP. SPOKE WITH MULTIPLE TIMES T/O SHIFT, UPDATING ON HOW PT WAS DOING. BED ALARM AND CB WITHIN REACH. NO CONCERNS AT THIS TIME.
[2022-09-12 20:00] VITALS: BP 139/79; PULSE 125; RESP 18; TEMP 36.9; O2SAT 95
[2022-09-12 21:52] LABS: POC Glucose,Bedside 124 (70-110)
[2022-09-13 00:26] VITALS: PULSE 112
[2022-09-13 04:00] VITALS: BP 112/67; PULSE 120; RESP 18; TEMP 36.8; O2SAT 94
[2022-09-13 04:28] VITALS: BMI 25.1
[2022-09-13 07:05] LABS: POC Glucose,Bedside 212 (70-110)
--- NOTE | 2022-09-13 07:41 | ECG_ITS ---
APPROVED REPORT Exam: Resting ECG HR:114 bpm ECG Measurements Heart Rate 114 AXES IA 134 P 32 QRSd 86 QRS -29 QT 324 T 1 QTc 391 Conclusion SINUS TACHYCARDIA Late r wave progression and old inferior changes ABNORMAL ECG UNCONFIRMED REPORT Electronically signed by : Luis Hope MD 09/14/2022 21:17:31
--- NOTE | 2022-09-13 07:47 | PC.NURSE ---
Pt remains confused t/o shift, ao to person. Pt did not voice any c/o to staff. Bed alarm and seizure pads in place. Call light within reach.
--- NOTE | 2022-09-13 07:59 | DIET.NUTRFU ---
Addendum entered by Maegan Romero RD, AMRIK 09/13/22 13:53: during meal rounds, family present who fed her lunch. Patient she liked the nectar thick ice cream and chicken salad with mashed. Consumed couple bites of each. Family felt she is more alert today. Continue to have poor po intake, increased risk of wt loss. Addendum entered by Maegan Romero RD, AMRIK 09/13/22 11:20: Speech was able to eval today at bedside. Patient had some coughing with thin liquids and spillage with cup. Diet was changed to nectar thick liquids by straws. Continues on pureed with 1:1 assistance. Kitchen aware of changes. Glucerna with be changed to nectar and nectar ice cream also. Original Note: Patient is more alert today. Coughing throughout night. Nursing feels she would benefit from speech eval. Patient is currently on pureed diet with thin liquids and requiring 1:1 assistance with meals. She refused most meals yesterday, was eating this AM for nursing. She also has glucerna in place with meals and ice cream daily. Will continue to follow up with [employer]ACHER [employer] recommendations.
[2022-09-13 08:00] VITALS: BP 120/59; PULSE 115; RESP 18; TEMP 36.7; O2SAT 98
--- NOTE | 2022-09-13 08:44 | EXP.ACUTE.PN ---
Subjective *Date: 09/13/22 *Time: 08:44 Interval history: Overnight patient was a little bit less anxious, slept a little bit better. Nurses report this morning that she is having little bit of problems with swallowing and has some choking symptoms. She is disoriented but is pleasant and talkative. Medical Exam Vital signs and Labs for Last 24 Hours: Vital Signs Temp Pulse Resp BP Pulse Ox 09/13/22 04:00 98.2 F 120 H 18 112/67 94 L 09/13/22 00:26 112 H 09/12/22 20:00 98.5 F 125 H 18 139/79 95 09/12/22 16:00 98.8 F 120 H 18 138/76 97 Intake and Output 09/12/22 09/13/22 09/13/22 19:59 03:59 11:59 Intake Total 551 / 2066 1515 / 2066 Output Total 800 / 1000 200 / 1000 Balance 551 / 1066 -800 / 1066 1315 / 1066 Intake: Intake, Oral Amount 240 / 240 Intake, Total IV Amount 311 / 1826 1515 / 1826 0.9 % Sodium Chloride 1,000 ml 311 / 1776 1465 / 1776 @ 150 mls/hr IV .Q6H40M RAEGAN Rx# :[id number] Ceftriaxone 1 gm 1 gm In 0.9 % 50 / 50 Sodium Chloride 50 ml @ 100 mls /hr IV Q24H RAEGAN Rx#:[id number] Output: Output, Urine Amount 800 / 1000 200 / 1000 Other: Number of Unmeasured Voids 0 0 0 Weight 150 lb 11.2 oz Patient Weight 09/13/22 11:59 Weight 150 lb 11.2 oz Laboratory Results - last 24 hr 09/12/22 11:16: POC Glucose 159 H 09/12/22 16:18: POC Glucose 258 H 09/12/22 21:36: POC Glucose 124 H 09/13/22 06:55: POC Glucose 212 H I & O for Labs for Last 24 Hours: Intake & Output 09/10/22 09/11/22 09/12/22 09/13/22 11:59 11:59 11:59 11:59 Intake Total 1413 / 1413 2066 / 2066 Output Total 850 / 850 800 / 800 1000 / 1000 Balance -850 / -850 613 / 613 1066 / 1066 Weight 147 lb 11.355 oz 150 lb 8 oz 150 lb 11.2 oz Microbiology Reports for the Last 24 Hours: Microbiology 09/10/22 18:30 Urine,Catheterized Urine Culture - Preliminary Comment:: Alert, pleasant. Pulse rate recorded by nurses in the 120s but currently is 80. Regular. No murmurs auscultated bowl but obesity limits her exam findings. Lungs have good air movement. Abdomen soft. Extremities are warm and well-perfused. Carr catheter draining clear yellow urine. Assessment and Plan *Assessment and plan (1) Weakness: Status: Acute Category: Medical Code(s): R53.1 - Weakness (2) UTI (urinary tract infection): Status: Acute Category: Medical Code(s): N39.0 - Urinary tract infection, site not specified (3) Diabetes mellitus: Status: Chronic Qualifiers: Qualified Code(s): Z79.4 - adjunct faculty for medical terminology (current) use of insulin Category: Medical Code(s): E11.9 - Type 2 diabetes mellitus without complications (4) Dementia: Status: Acute Category: Medical Code(s): F03.90 - Unspecified dementia, unspecified severity, without behavioral disturbance, psychotic disturbance, mood disturbance, and anxiety (5) Debility: Status: Acute Category: Medical Code(s): R53.81 - Other malaise (6) Acute hyperactive delirium due to another medical condition: Status: Acute Category: Medical Code(s): F05 - Delirium due to known physiological condition (7) Protein calorie malnutrition: Status: Acute Category: Medical Code(s): E46 - Unspecified protein-calorie malnutrition Plan UTI is improving. Await culture results and all sensitivities. Pseudomonas on preliminary cultures. Will change to cefepime. Unfortunately no blood cultures were done in the ER. Continue sliding scale insulin. PT/OT evaluation today. Significant protein calorie malnutrition with weight loss, nutrition consultation is on board. Evaluation given nurses reported dysphagia. EKG today given recorded tachycardia. Social work consultation for skilled care placement evaluation
--- NOTE | 2022-09-13 10:37 | HMH.SLDYSPHA ---
Speech & Language Evaluation Speech/Language Dysphagia Evaluation Start: 09/13/22 10:26 Freq: ONCE Status: Active Protocol: Document 09/13/22 10:26 BILL (Rec: 09/13/22 10:37 [id number] Dysphagia Assess/Goals/Plan Assessment Date of Evaluation: 09/13/22 Evaluation Type Initial Certification Assessment/Problems Pt seen for clinical bedside swallow evaluation per MD order. Does Patient Qualify for Service Yes Qualify/Failure Comment Based on diet recommendation changes, pt qualifies for skilled speech therapy services f/u for diet tolerance. Recommendations PHYSICIAN CERTIFICATION: The specified therapy services are required, authorized, and reviewed every 30 days. Pt will be seen # times/week 1 for # weeks 1 Diet Recommendations Pureed Liquid Type Recommendations [place] Consistency SL Swallow Guidelines Assist w/all meals,Alt bite w/ sip thru meal,High aspiration risk Crush Meds Crush all meds,Small pills w/ applesauce,Crush lge pills w/ applesa Dysphagia Swallow Precautions/Strategies Sitting Upright (90 deg), Liquids from Straw,Small Bites and Sips,Alternate Liquids/ Solids Plan Anticipate reaching STG in # weeks 1 Anticipate reaching LTG in # weeks 1 Pt/Guardian verbally ack understanding Yes of dx/prognosis/goals G -code Required No STG-Other Comment/Non-Specific Pt will demonstrate diet tolerance with 100% accuracy per clinical observation and nursing reports. Chcf Goals Diet puree with Liquids [place] Thick Education Instructions provided CSE results and diet recommendations discussed with pt, nursing, repair welder, and care managament all of which expressed understanding. Pt/Caregiver able to recall information Able to recall/restate Reinforcement needed No Speech & Language HPI History Present Illness Description of Patient Problem Per ER report, 72-year-old female, afflicted with severe diabetes, visual impairment and severe depression with psychotic features and
[2022-09-13 11:47] LABS: POC Glucose,Bedside 184 (70-110)
[2022-09-13 16:00] VITALS: BP 135/78; PULSE 112; RESP 24; TEMP 37; O2SAT 95
[2022-09-13 16:46] LABS: POC Glucose,Bedside 190 (70-110)
--- NOTE | 2022-09-13 18:49 | PC.NURSE ---
no acute changes from previous shift. pt has had less tearful episodes and episodes of yelling out. pt currently resting peacefully in bed. cb and personal items within reach. no concerns at this time.
[2022-09-13 20:00] VITALS: BP 136/78; PULSE 117; RESP 18; TEMP 36.8; O2SAT 95
[2022-09-13 20:57] LABS: POC Glucose,Bedside 234 (70-110)
[2022-09-14 04:00] VITALS: BP 133/65; PULSE 106; RESP 18; TEMP 36.9; O2SAT 95
[2022-09-14 04:37] VITALS: BMI 26.3
[2022-09-14 05:51] LABS: POC Glucose,Bedside 135 (70-110)
[2022-09-14 08:00] VITALS: BP 134/67; PULSE 107; RESP 22; TEMP 37; O2SAT 96
--- NOTE | 2022-09-14 09:32 | EXP.DC.SUM ---
General Admission date:: 09/10/22 Discharge date: 09/14/22 HPI HPI HPI: 72-year-old female, afflicted with severe diabetes, visual impairment and severe depression with psychotic features and dementia, who is a long-term care resident of the [facility]. Over the past 48 hours she had increasing problems with mental status changes, aggressive behavior and is actually gotten a Haldol injection at the snf. She became worse and was transported to the emergency department. She was found to have evidence of UTI, hypokalemia and was admitted to hospital for evaluation Hospital Course Hospital Course Hospital Course: Patient was admitted, found to have gram-negative rods in urine. Lab has determined to Pseudomonas species. Final culture and sensitivities are pending, but patient was switched from ceftriaxone to cefepime and seemed to improve in regards to functional status. Carr catheter was placed for hygiene issues and prevention of wounds, and she did well with this. She had some choking episodes and speech therapy evaluated her. She will need ongoing speech therapy on transfer back to the snf today. She maintains a DNR status and will continue to do this at the snf. She was placed on respite all which seemed to help her behavior disturbances and hallucinations slightly. We will slightly increase this on transfer in the snf. She may be a candidate for Nuedexta therapy if this is not helpful. She will need a BMP and CBC in 1 week, we will follow her on her rounds at the snf. Exam Data for Last 24 hours Vital signs and Labs for Last 24 Hours: Temp Pulse Resp BP Pulse Ox 98.6 F 107 H 22 134/67 96 09/14/22 08:00 09/14/22 08:00 09/14/22 08:00 09/14/22 08:00 09/14/22 08:00 Laboratory Results - last 24 hr 09/10/22 18:30: Urine Color Yellow, Urine Appearance Cloudy, Urine pH 5.5, Ur Specific [place] 1.025, Urine Protein 1+, Urine Glucose (UA) Negative, Urine Ketones Negative, Urine Blood 1+, Urine Nitrate Positive, Urine Bilirubin Negative, Urine Urobilinogen 0.2, Ur Leukocyte Esterase 2+ A, Urine RBC Occasional, Urine WBC Tntc, Ur Squamous Epith Cells 3-5, Urine Bacteria Trace 09/13/22 11:33: POC Glucose 184 H 09/13/22 16:33: POC Glucose 190 H 09/13/22 20:46: POC Glucose 234 H 09/14/22 05:42: POC Glucose 135 H I & O for Last 24 hours: Intake & Output 09/11/22 09/12/22 09/13/22 09/14/22 11:59 11:59 11:59 11:59 Intake Total 1413 / 1413 2546 / 2546 3773 / 3773 Output Total 850 / 850 800 / 800 1000 / 1000 700 / 700 Balance -850 / -850 613 / 613 1546 / 1546 3073 / 3073 Weight 147 lb 11.355 oz 150 lb 8 oz 150 lb 11.2 oz 158 lb 2.98 oz Microbiology Reports for the Last 24 Hours: Microbiology 09/10/22 18:30 Urine,Catheterized Urine Culture - Preliminary Pseudomonas aeruginosa Gram Negative Rods#2 Constitutional Constitutional: no acute distress, morbidly obese and chronically ill appearing Comments: Patient is alert and pleasant but very globally weak *Routine HEENT Exam Head: Present normocephalic Eye: Present EOMI and PERRL ENT: Present mucous membranes moist *Routine Neck Exam Neck: Present supple; Absent lymphadenopathy *Routine Respiratory Exam Respiratory: Present CTA bilaterally *Routine Cardiovascular Exam Cardiovascular: Present RRR *Routine Abdominal Exam Abdominal: Present soft and normoactive bowel sounds; Absent tenderness *Routine Extremities Exam Extremities: Absent cyanosis, clubbing or edema *Routine Skin Exam Skin: Present warm; Absent rash Comments: Right heel is dressed per Occupational Therapy *Routine Neurological Exam Neurological: Present alert Comments: Oriented x1, able to be reoriented x2 most of the hospital stay. When she is left alone in the room and continues to yell out help but calms with any kind of presence of staff or me. Will engage
--- NOTE | 2022-09-14 12:50 | PC.NURSE ---
pt has been discahrged via EMS. Report called to Nani @ [facility]. Saline lock discontinued.
== END 2022-09-14 12:50 ==
LOC: ER 19:37 → 2ND 19:43
PROVIDERS: Admitting Provider Internal Medicine Adolescent Medicine; Emergency Provider Emergency Medicine; PCP Internal Medicine Adolescent Medicine; Visit Provider Internal Medicine Adolescent Medicine
DX: N39.0 Urinary tract infection, site not specified (principal); E11.9 Type 2 diabetes mellitus without complications; Z79.4 Long term (current) use of insulin; Z79.899 Other long term (current) drug therapy; E87.6 Hypokalemia; E78.5 Hyperlipidemia, unspecified; E46 Unspecified protein-calorie malnutrition; Z66 Do not resuscitate; Z68.26 Body mass index [BMI] 26.0-26.9, adult; Z20.822 Contact with and (suspected) exposure to COVID-19
CPT/HCPCS: G0378; 36415; 70450; 80048; 80053; 81001; 82962; 85025; 87086; 87088; 87186; 92610; 93005; 97162; 97165; 99291; C9803; J0692; J0696; U0003; U0005